=== PATIENT | male | born 1940 | race Caucasian/White ===

== ENCOUNTER → 2017-07-13 | Outpatient (CLI) | payer MEDICARE, OTHER ==
[~2017-07-13] VITALS: Ht 180.3 cm; Wt 74.4 kg
[2017-07-13 13:35] LABS: Urine Bilirubin Negative (Negative); Urine Blood Negative /uL (Negative); Urine Color Yellow (Yellow); Urine Glucose Normal (Normal); Urine Ketone Negative (Negative); Urine Nitrite Negative (Negative); Urine Urobilinogen Normal (Negative); Urine pH 7.5 (5.0-8.0)
[2017-07-13 13:49] LABS: BUN/Creatinine Ratio 22.1; Bilirubin, Total 0.6 mg/dL (0.2-1.0); Calcium 8.3 mg/dL (8.5-10.1); Potassium 3.6 mmol/L (3.5-5.1); Total Protein 5.7 g/dL (6.4-8.2)
[2017-07-13 18:38] LABS: Basophils # (auto) 0.1 uL; Basophils % (auto) 1.5 % (0.0-2.0); Eosinophils # (auto) 0.2 uL; Hematocrit 42.1 % (41.0-53.0); Hemoglobin 14.2 g/dL (13.5-17.5); Lymphocytes # (auto) 0.8 uL; Lymphocytes % (auto) 13.2 % (10.0-50.0); Mean Corpuscular Hemoglobin 31.1 pg (28.0-32.0); Mean Corpuscular Hgb Conc. 33.7 g/dL (32.0-36.0); Mean Corpuscular Volume 92.4 fL (80.0-100.0); Mean Platelet Volume 10.4 fL (6.9-10.8); Monocytes # (auto) 0.4 uL; Monocytes % (auto) 5.8 % (0.0-12.0); Neutrophils # (auto) 4.9 uL; Neutrophils % (auto) 76.5 % (37.0-80.0); Nucleated Red Blood Cells % 0.5 %; Platelet Count (auto) 210 10^3/uL (140-450); White Blood Cell 6.4 10^3/uL (4.4-10.8)
== END | disposition home or self-care (01) ==
LOC: Rad HDHVI 07:54
PROVIDERS: ATTEND Internal Medicine Cardiovascular Disease
DX: I10 Essential (primary) hypertension (principal); E11.9 Type 2 diabetes mellitus without complications; D64.9 Anemia, unspecified; E78.00 Pure hypercholesterolemia, unspecified; E03.9 Hypothyroidism, unspecified; E55.9 Vitamin D deficiency, unspecified; R53.81 Other malaise; R97.20 Elevated prostate specific antigen [PSA]; N39.0 Urinary tract infection, site not specified
CPT/HCPCS: 36415; 78452; 80053; 80061; 81003; 82306; 82607; 83036; 84403; 84439; 84443; 85025; 93017; 96374; A9500

== ENCOUNTER → 2017-07-14 | Outpatient (CLI) | payer MEDICARE, OTHER | END | disposition home or self-care (01) | LOC: Rad HDHVI 07:39 | PROVIDERS: ATTEND Internal Medicine Cardiovascular Disease | DX: I08.1 Rheumatic disorders of both mitral and tricuspid valves (principal) | CPT/HCPCS: 93306; 93880 ==

== ENCOUNTER → 2017-08-06 | Outpatient (CLI) | payer MEDICARE, OTHER ==
[~2017-08-06] VITALS: Ht 180.3 cm; Wt 75.7 kg
[~2017-08-06] MED LIST: ASPI325T47 OR; CHOL1CAP PO; FURO20TA3 PO; LEVO50TA7 PO; POTA10TA51 PO; ROSU1TAB5 PO; TADA5TAB11 PO; VALS160T43 PO
[2017-08-06 11:00] VITALS: BP 160/78
[2017-08-06 11:30] VITALS: BP 148/73
[2017-08-06 16:00] LABS: Basophils # (auto) 0 uL; Basophils % (auto) 0.8 % (0.0-2.0); Eosinophils # (auto) 0.1 uL; Eosinophils % (auto) 1.8 % (0.0-7.0); Hematocrit 42.8 % (41.0-53.0); Hemoglobin 14.3 g/dL (13.5-17.5); Lymphocytes # (auto) 0.9 uL; Lymphocytes % (auto) 15.3 % (10.0-50.0); Mean Corpuscular Hemoglobin 30.8 pg (28.0-32.0); Mean Corpuscular Hgb Conc. 33.5 g/dL (32.0-36.0); Mean Corpuscular Volume 91.9 fL (80.0-100.0); Mean Platelet Volume 9.8 fL (6.9-10.8); Monocytes # (auto) 0.3 uL; Monocytes % (auto) 4.7 % (0.0-12.0); Neutrophils # (auto) 4.5 uL; Neutrophils % (auto) 77.4 % (37.0-80.0); Platelet Count (auto) 195 10^3/uL (140-450); Red Cell Distribution Width 13.5 % (11.8-14.3); White Blood Cell 5.9 10^3/uL (4.4-10.8)
[2017-08-06 16:08] LABS: Calcium 8.2 mg/dL (8.5-10.1); Potassium 3.7 mmol/L (3.5-5.1)
[2017-08-06 16:13] LABS: INR 0.9 (0.9-1.15); Partial Thromboplastin Time 24.5 sec (22.64-33.71); Prothrombin Time 9.8 sec (9.37-12.3)
== END | disposition home or self-care (01) ==
LOC: Rad HDHVI 10:46
PROVIDERS: ATTEND Internal Medicine Cardiovascular Disease
DX: Z01.818 Encounter for other preprocedural examination (principal); R91.8 Other nonspecific abnormal finding of lung field; I70.0 Atherosclerosis of aorta; I10 Essential (primary) hypertension; D64.9 Anemia, unspecified; R79.1 Abnormal coagulation profile; R53.81 Other malaise; R07.89 Other chest pain
CPT/HCPCS: 36415; 71020; 80048; 85025; 85610; 85730; G0463

== ENCOUNTER → 2018-01-26 | Outpatient (CLI) | payer MEDICARE, OTHER ==
[2018-01-26 12:06] LABS: Basophils # (auto) 0.1 uL; Basophils % (auto) 1.1 % (0.0-2.0); Eosinophils # (auto) 0.2 uL; Eosinophils % (auto) 3.9 % (0.0-7.0); Hematocrit 41.5 % (41.0-53.0); Lymphocytes # (auto) 0.7 uL; Lymphocytes % (auto) 13.6 % (10.0-50.0); Mean Corpuscular Hemoglobin 30.5 pg (28.0-32.0); Mean Corpuscular Hgb Conc. 33.8 g/dL (32.0-36.0); Mean Corpuscular Volume 90.3 fL (80.0-100.0); Monocytes # (auto) 0.4 uL; Monocytes % (auto) 6.6 % (0.0-12.0); Neutrophils # (auto) 4.1 uL; Neutrophils % (auto) 74.8 % (37.0-80.0); Platelet Count (auto) 229 10^3/uL (140-450); Red Blood Cells 4.59 10^6/uL (4.5-5.90); Red Cell Distribution Width 14.3 % (11.8-14.3); White Blood Cell 5.4 10^3/uL (4.4-10.8)
[2018-01-26 12:11] LABS: Albumin 1.6 g/dL (3.4-5.0); BUN/Creatinine Ratio 20.2; Bilirubin, Total 0.3 mg/dL (0.2-1.0); Calcium 8.1 mg/dL (8.5-10.1); Potassium 3.7 mmol/L (3.5-5.1); Total Protein 5.2 g/dL (6.4-8.2)
== END | disposition home or self-care (01) ==
LOC: LAB 08:08
PROVIDERS: ATTEND Internal Medicine
DX: E78.5 Hyperlipidemia, unspecified (principal); E11.9 Type 2 diabetes mellitus without complications; E03.9 Hypothyroidism, unspecified; I10 Essential (primary) hypertension
CPT/HCPCS: 36415; 80053; 80061; 84439; 84443; 85025

== ENCOUNTER → 2018-02-16 | Outpatient (CLI) | payer MEDICARE, OTHER ==
[~2018-02-16] MED LIST changes: +FUROSEMIDE 100 MG/10ML VIAL IV ONE; +FUROSEMIDE 40 MG/4 ML VIAL ONE; +POTASSIUM CHL 20 Meq TABLET PO ONE
[2018-02-16 12:00] VITALS: BP 157/94
[2018-02-16 12:30] VITALS: BP 156/81
== END | disposition home or self-care (01) ==
LOC: CHF HDHVI 12:07
PROVIDERS: ATTEND Internal Medicine Cardiovascular Disease
DX: I25.10 Atherosclerotic heart disease of native coronary artery without angina pectoris (principal); I10 Essential (primary) hypertension; E11.9 Type 2 diabetes mellitus without complications; E03.9 Hypothyroidism, unspecified; E78.5 Hyperlipidemia, unspecified; E78.00 Pure hypercholesterolemia, unspecified
CPT/HCPCS: 96374; G0463; J1940

== ENCOUNTER → 2018-03-02 | Outpatient (CLI) | payer MEDICARE, OTHER ==
[~2018-03-02] MED LIST changes: -FUROSEMIDE 100 MG/10ML VIAL IV ONE; -FUROSEMIDE 40 MG/4 ML VIAL ONE; -POTASSIUM CHL 20 Meq TABLET PO ONE
== END | disposition home or self-care (01) ==
LOC: Rad HDHVI 12:51
PROVIDERS: ATTEND Internal Medicine Cardiovascular Disease
DX: I08.1 Rheumatic disorders of both mitral and tricuspid valves (principal); I25.10 Atherosclerotic heart disease of native coronary artery without angina pectoris; E78.5 Hyperlipidemia, unspecified; E03.9 Hypothyroidism, unspecified; E78.00 Pure hypercholesterolemia, unspecified; E11.9 Type 2 diabetes mellitus without complications; I50.43 Acute on chronic combined systolic (congestive) and diastolic (congestive) heart failure; I10 Essential (primary) hypertension
CPT/HCPCS: 93306

== ENCOUNTER → 2018-03-09 | Outpatient (CLI) | payer MEDICARE, OTHER ==
[~2018-03-09] VITALS: Ht 180.3 cm; Wt 82.1 kg
== END | disposition home or self-care (01) ==
LOC: Rad HDHVI 10:17
PROVIDERS: ATTEND Internal Medicine Cardiovascular Disease
DX: I11.0 Hypertensive heart disease with heart failure (principal); I50.43 Acute on chronic combined systolic (congestive) and diastolic (congestive) heart failure; R06.02 Shortness of breath; R60.9 Edema, unspecified; I25.10 Atherosclerotic heart disease of native coronary artery without angina pectoris; E78.5 Hyperlipidemia, unspecified; E03.9 Hypothyroidism, unspecified; E78.00 Pure hypercholesterolemia, unspecified; E11.9 Type 2 diabetes mellitus without complications
CPT/HCPCS: 78452; 93017; 96374; A9500

== ENCOUNTER → 2018-07-25 | Outpatient (CLI) | payer MEDICARE, BC ==
[~2018-07-25] MED LIST changes: +ASPI-123 OR; -ASPI325T47 OR; -ROSU1TAB5 PO; +ROSU1TAB9 PO
== END | disposition home or self-care (01) ==
LOC: Rad HDHVI 10:43
PROVIDERS: ATTEND Internal Medicine Cardiovascular Disease
DX: I08.1 Rheumatic disorders of both mitral and tricuspid valves (principal); I25.10 Atherosclerotic heart disease of native coronary artery without angina pectoris; I11.0 Hypertensive heart disease with heart failure; I50.23 Acute on chronic systolic (congestive) heart failure
CPT/HCPCS: 93306

== ENCOUNTER → 2018-10-31 | Outpatient (CLI) | payer MEDICARE, BC ==
[2018-10-31 12:02] LABS: Basophils # (auto) 0 uL; Basophils % (auto) 0.8 % (0.0-2.0); Eosinophils # (auto) 0.1 uL; Eosinophils % (auto) 2.7 % (0.0-7.0); Hematocrit 42.7 % (41.0-53.0); Hemoglobin 14.3 g/dL (13.5-17.5); Lymphocytes # (auto) 0.6 uL; Mean Corpuscular Hemoglobin 30.4 pg (28.0-32.0); Mean Corpuscular Hgb Conc. 33.6 g/dL (32.0-36.0); Mean Corpuscular Volume 90.3 fL (80.0-100.0); Monocytes # (auto) 0.3 uL; Monocytes % (auto) 5.5 % (0.0-12.0); Neutrophils # (auto) 3.5 uL; Nucleated Red Blood Cells % 0.3 %; Platelet Count (auto) 226 10^3/uL (140-450); Red Blood Cells 4.72 10^6/uL (4.5-5.90); Red Cell Distribution Width 13.7 % (11.8-14.3); White Blood Cell 4.6 10^3/uL (4.4-10.8)
[2018-10-31 12:14] LABS: Urine Blood 1+ /uL (Negative); Urine Specific Gravity 1.017 (1.001-1.035)
[2018-10-31 12:18] LABS: Potassium 3.8 mmol/L (3.5-5.1)
[2018-10-31 12:23] LABS: Free T4 (Free Thyroxine) 1.08 ng/dL (0.89-1.76); Prostate Specific Antigen 2.54 ng/mL (0.0-4.0)
[2018-10-31 12:36] LABS: Albumin 2.2 g/dL (3.4-5.0); BUN/Creatinine Ratio 20.4; Bilirubin, Total 0.5 mg/dL (0.2-1.0); Total Protein 6.1 g/dL (6.4-8.2)
== END | disposition home or self-care (01) ==
LOC: LAB 07:57
PROVIDERS: ATTEND Internal Medicine Cardiovascular Disease
DX: E55.9 Vitamin D deficiency, unspecified (principal); E03.9 Hypothyroidism, unspecified; E11.9 Type 2 diabetes mellitus without complications; E29.1 Testicular hypofunction; D51.9 Vitamin B12 deficiency anemia, unspecified; N39.0 Urinary tract infection, site not specified; C61 Malignant neoplasm of prostate
CPT/HCPCS: 36415; 80053; 80061; 81003; 82306; 82607; 83036; 84153; 84403; 84439; 84443; 85025; 87086

== ENCOUNTER → 2019-04-05 | Outpatient (CLI) | payer MEDICARE, BC ==
[~2019-04-05] VITALS: Ht 180.3 cm; Wt 72.6 kg
[2019-04-05 12:08] LABS: Urine Blood 1+ /uL (Negative); Urine Specific Gravity 1.024 (1.001-1.035)
[2019-04-05 12:11] LABS: Basophils # (auto) 0 uL; Basophils % (auto) 0.5 % (0.0-2.0); Eosinophils # (auto) 0.1 uL; Eosinophils % (auto) 2.5 % (0.0-7.0); Hematocrit 40.1 % (41.0-53.0); Hemoglobin 13.3 g/dL (13.5-17.5); Lymphocytes # (auto) 0.6 uL; Lymphocytes % (auto) 11.1 % (10.0-50.0); Mean Corpuscular Hemoglobin 29.7 pg (28.0-32.0); Mean Corpuscular Hgb Conc. 33.2 g/dL (32.0-36.0); Mean Corpuscular Volume 89.6 fL (80.0-100.0); Monocytes # (auto) 0.4 uL; Monocytes % (auto) 6.5 % (0.0-12.0); Neutrophils # (auto) 4.6 uL; Neutrophils % (auto) 79.4 % (37.0-80.0); Platelet Count (auto) 221 10^3/uL (140-450); Red Blood Cells 4.47 10^6/uL (4.5-5.90); Red Cell Distribution Width 13.6 % (11.8-14.3); White Blood Cell 5.8 10^3/uL (4.4-10.8)
[2019-04-05 12:16] LABS: Calcium 8.6 mg/dL (8.5-10.1)
[2019-04-05 12:23] LABS: Albumin 1.9 g/dL (3.4-5.0); BUN/Creatinine Ratio 21.8; Bilirubin, Total 0.4 mg/dL (0.2-1.0); Total Protein 5.9 g/dL (6.4-8.2)
[2019-04-05 13:48] LABS: Free T4 (Free Thyroxine) 0.91 ng/dL (0.89-1.76)
[2019-04-05 13:49] LABS: Prostate Specific Antigen 3.04 ng/mL (0.0-4.0)
== END | disposition home or self-care (01) ==
LOC: Rad HDHVI 08:02
PROVIDERS: ATTEND Internal Medicine Cardiovascular Disease
DX: C61 Malignant neoplasm of prostate (principal); E03.9 Hypothyroidism, unspecified; K90.9 Intestinal malabsorption, unspecified; D51.9 Vitamin B12 deficiency anemia, unspecified; E11.9 Type 2 diabetes mellitus without complications; I11.0 Hypertensive heart disease with heart failure; I50.33 Acute on chronic diastolic (congestive) heart failure; E78.00 Pure hypercholesterolemia, unspecified; E78.5 Hyperlipidemia, unspecified; Z88.8 Allergy status to other drugs, medicaments and biological substances; Z79.899 Other long term (current) drug therapy
CPT/HCPCS: 36415; 78452; 80053; 80061; 81003; 82306; 82607; 83036; 84153; 84403; 84439; 84443; 85025; 93017; 96374; A9500

== ENCOUNTER 2019-07-04 06:37 | Emergency (ER) | payer MEDICARE, BC ==
[~2019-07-04] VITALS: Ht 180.3 cm; Wt 72.6 kg
[~2019-07-04 06:37] MED LIST changes: +ROSU1TAB13 PO; -ROSU1TAB9 PO
[2019-07-04] MEDS ORDERED: KETOROLAC TROMETH 60MG/2ML VIAL IM ONE (08:30)
[2019-07-04 08:45] VITALS: BP 142/75
[2019-07-04] MEDS ORDERED: ACETAMINOPHEN 325 MG TAB PO ONE (08:45)
== END 2019-07-04 08:58 | disposition home or self-care (01) ==
LOC: ER 06:39
DX: M25.532 Pain in left wrist (principal); E78.00 Pure hypercholesterolemia, unspecified; I10 Essential (primary) hypertension; Z79.82 Long term (current) use of aspirin; Z79.899 Other long term (current) drug therapy
CPT/HCPCS: 29125; 73110

== ENCOUNTER → 2019-09-15 | Outpatient (CLI) | payer MEDICARE, BC ==
[~2019-09-15] MED LIST changes: +IOHEXOL 350 MG/ML 100ML IJ ONE; +POTASSIUM CHL 20 Meq TABLET PO ONE; +SODIUM CHLORIDE 0.9% 1,000 ML IV ONE
[2019-09-15 09:30] VITALS: BP 146/80
--- NOTE | 2019-09-15 09:30 | NUR ---
IV insertion IV access obtained, via clean sterile technique by inserting 20 gauge catheter at LAC after 2 attempt(s). IV secured properly. No trauma to site. Patient tolerated procedure well.
[2019-09-15 10:26] LABS: BUN/Creatinine Ratio 21.3; Calcium 8.9 mg/dL (8.5-10.1)
[2019-09-15 10:30] LABS: Potassium 2.9 mmol/L (3.5-5.1)
[2019-09-15 12:00] VITALS: BP 139/78
--- NOTE | 2019-09-15 12:00 | NUR ---
[facility] Discharge Instructions See e-MAR for any mediations given with this visit. Patient education given on disease process. Patient verbalized understanding. Previous labs reviewed. Patient discharged in stable condition with after care instructions and follow up appointment. NOTE POTASSIUM PO ADMIN BY HAL PHILLIPS NS [id number], [phone] ADMIN BY HAL PHILLIPS
[2019-09-15 12:29] LABS: Basophils # (auto) 0 uL; Basophils % (auto) 0.6 % (0.0-2.0); Eosinophils # (auto) 0.1 uL; Eosinophils % (auto) 1.4 % (0.0-7.0); Hematocrit 37.4 % (41.0-53.0); Hemoglobin 12.8 g/dL (13.5-17.5); Lymphocytes # (auto) 0.8 uL; Lymphocytes % (auto) 10.4 % (10.0-50.0); Mean Corpuscular Hemoglobin 29.5 pg (28.0-32.0); Mean Corpuscular Hgb Conc. 34.1 g/dL (32.0-36.0); Mean Corpuscular Volume 86.5 fL (80.0-100.0); Monocytes # (auto) 0.4 uL; Monocytes % (auto) 5.2 % (0.0-12.0); Neutrophils % (auto) 82.4 % (37.0-80.0); Nucleated Red Blood Cells % 0.1 %; Platelet Count (auto) 279 10^3/uL (140-450); Red Blood Cells 4.33 10^6/uL (4.5-5.90); Red Cell Distribution Width 13.8 % (11.8-14.3); White Blood Cell 7.3 10^3/uL (4.4-10.8)
[2019-09-15 12:44] LABS: Albumin 2.3 g/dL (3.4-5.0); Bilirubin, Direct 0.1 mg/dL (0-0.2); Bilirubin, Total 0.5 mg/dL (0.2-1.0); Total Protein 6.4 g/dL (6.4-8.2)
[2019-09-15 15:52] LABS: Urine Blood Negative /uL (Negative)
[2019-09-19 16:47] LABS: Free T4 (Free Thyroxine) 1.27 ng/dL (0.89-1.76); Prostate Specific Antigen 3.55 ng/mL (0.0-4.0)
== END | disposition home or self-care (01) ==
LOC: Rad HDHVI 09:11
PROVIDERS: ATTEND Internal Medicine Cardiovascular Disease
DX: R19.7 Diarrhea, unspecified (principal); R63.4 Abnormal weight loss; K90.9 Intestinal malabsorption, unspecified; C61 Malignant neoplasm of prostate; D51.9 Vitamin B12 deficiency anemia, unspecified; N39.0 Urinary tract infection, site not specified; R94.4 Abnormal results of kidney function studies; E11.9 Type 2 diabetes mellitus without complications; E78.5 Hyperlipidemia, unspecified; E87.6 Hypokalemia; I70.8 Atherosclerosis of other arteries; K44.0 Diaphragmatic hernia with obstruction, without gangrene; Z79.899 Other long term (current) drug therapy
CPT/HCPCS: 36415; 71260; 74177; 80048; 80061; 80076; 81003; 82306; 82607; 83036; 84153; 84403; 84439; 84443; 85025; 96360; G0463; J7030; Q9967

== ENCOUNTER → 2019-09-29 | Outpatient (CLI) | payer MEDICARE, BC ==
[~2019-09-29] MED LIST changes: -IOHEXOL 350 MG/ML 100ML IJ ONE; -POTASSIUM CHL 20 Meq TABLET PO ONE; -SODIUM CHLORIDE 0.9% 1,000 ML IV ONE
[2019-09-29 12:22] LABS: Albumin 2.3 g/dL (3.4-5.0); Calcium 9.1 mg/dL (8.5-10.1); Magnesium 2.2 mg/dL (1.6-2.6); Potassium 3.3 mmol/L (3.5-5.1)
[2019-09-29 12:25] LABS: Bilirubin, Total 0.5 mg/dL (0.2-1.0); Total Protein 6.6 g/dL (6.4-8.2)
== END | disposition home or self-care (01) ==
LOC: LAB 10:59
PROVIDERS: ATTEND Internal Medicine Cardiovascular Disease
DX: R00.2 Palpitations (principal); E78.5 Hyperlipidemia, unspecified; I10 Essential (primary) hypertension
CPT/HCPCS: 36415; 80053; 83735

== ENCOUNTER → 2020-01-10 | Outpatient (CLI) | payer MEDICARE, BC ==
[~2020-01-10] MED LIST changes: +READI-CAT 2 (BARIUM SULF)(VANILLA SMOOTHIE) 450ML ONE
== END | disposition home or self-care (01) ==
LOC: Rad HDHVI 10:40
PROVIDERS: ATTEND Internal Medicine Cardiovascular Disease
DX: N40.1 Benign prostatic hyperplasia with lower urinary tract symptoms (principal); K42.9 Umbilical hernia without obstruction or gangrene; K40.90 Unilateral inguinal hernia, without obstruction or gangrene, not specified as recurrent
CPT/HCPCS: 74176

== ENCOUNTER → 2020-03-11 | Outpatient (CLI) | payer MEDICARE, BC ==
[~2020-03-11] MED LIST changes: -READI-CAT 2 (BARIUM SULF)(VANILLA SMOOTHIE) 450ML ONE
[2020-03-11 16:00] LABS: Urine Blood 1+ /uL (Negative); Urine Specific Gravity 1.008 (1.001-1.035)
== END | disposition home or self-care (01) ==
LOC: CHF HDHVI 12:06
PROVIDERS: ATTEND Internal Medicine Cardiovascular Disease
DX: N39.0 Urinary tract infection, site not specified (principal)
CPT/HCPCS: 81003

== ENCOUNTER → 2020-04-15 | Outpatient (CLI) | payer MEDICARE, BC | END | disposition home or self-care (01) | LOC: Rad HDHVI 12:57 | PROVIDERS: ATTEND Internal Medicine Cardiovascular Disease | DX: K44.9 Diaphragmatic hernia without obstruction or gangrene (principal); N32.3 Diverticulum of bladder; K40.30 Unilateral inguinal hernia, with obstruction, without gangrene, not specified as recurrent; N40.0 Benign prostatic hyperplasia without lower urinary tract symptoms; I70.8 Atherosclerosis of other arteries; R59.9 Enlarged lymph nodes, unspecified; R10.9 Unspecified abdominal pain | CPT/HCPCS: 74176 ==

== ENCOUNTER → 2020-05-20 | Outpatient (CLI) | payer MEDICARE, BC | END | disposition home or self-care (01) | LOC: Rad HDHVI 09:56 | PROVIDERS: ATTEND Internal Medicine Cardiovascular Disease | DX: I50.43 Acute on chronic combined systolic (congestive) and diastolic (congestive) heart failure (principal); R06.02 Shortness of breath | CPT/HCPCS: 93306 ==

== ENCOUNTER → 2020-06-24 | Outpatient (CLI) | payer MEDICARE, BC | END | disposition home or self-care (01) | LOC: Rad HDHVI 13:53 | PROVIDERS: ATTEND Internal Medicine Cardiovascular Disease | DX: I25.10 Atherosclerotic heart disease of native coronary artery without angina pectoris (principal); I10 Essential (primary) hypertension; I25.2 Old myocardial infarction; E78.00 Pure hypercholesterolemia, unspecified; E03.9 Hypothyroidism, unspecified; Z82.49 Family history of ischemic heart disease and other diseases of the circulatory system | CPT/HCPCS: 78452; 93017; 96374; A9500 ==

== ENCOUNTER → 2020-11-08 | Outpatient (CLI) | payer MEDICARE, BC | END | disposition home or self-care (01) | LOC: Rad HDHVI 10:00 | PROVIDERS: ATTEND Internal Medicine Cardiovascular Disease | DX: J98.11 Atelectasis (principal); J84.10 Pulmonary fibrosis, unspecified; I70.0 Atherosclerosis of aorta; M47.814 Spondylosis without myelopathy or radiculopathy, thoracic region; J18.9 Pneumonia, unspecified organism; Z86.16 Personal history of COVID-19 | CPT/HCPCS: 71046 ==

== ENCOUNTER → 2020-11-11 | Outpatient (CLI) | payer MEDICARE, BC | END | disposition home or self-care (01) | LOC: Rad HDHVI 10:58 | PROVIDERS: ATTEND Internal Medicine Cardiovascular Disease | DX: I10 Essential (primary) hypertension (principal); G45.9 Transient cerebral ischemic attack, unspecified | CPT/HCPCS: 93880 ==

== ENCOUNTER → 2020-11-14 | Outpatient (CLI) | payer MEDICARE, BC | END | disposition home or self-care (01) | LOC: Rad HDHVI 15:55 | PROVIDERS: ATTEND Internal Medicine Cardiovascular Disease | DX: I25.10 Atherosclerotic heart disease of native coronary artery without angina pectoris (principal); R06.02 Shortness of breath | CPT/HCPCS: 93306 ==

== ENCOUNTER → 2022-04-13 | Outpatient (CLI) | payer MEDICARE, BC ==
[~2022-04-13] VITALS: Ht 180.3 cm; Wt 69.4 kg
[~2022-04-13] MED LIST changes: +AMIODARONE HCL 150 MG in D5W 5% 100 ML IV ONE; +AMIODARONE HCL 200 MG TAB ONE; +AMIODARONE HCL 200 MG TAB PO ONE
[2022-04-13 10:55] VITALS: BP 132/78
[2022-04-13 12:17] VITALS: BP 126/79
== END | disposition home or self-care (01) ==
LOC: CHF HDHVI 11:01
PROVIDERS: ATTEND Internal Medicine Cardiovascular Disease
DX: I48.91 Unspecified atrial fibrillation (principal)
CPT/HCPCS: 96374; G0463

== ENCOUNTER → 2022-05-12 | Outpatient (CLI) | payer MEDICARE ==
[~2022-05-12] MED LIST changes: +AMIO400T7 PO; -AMIODARONE HCL 150 MG in D5W 5% 100 ML IV ONE; -AMIODARONE HCL 200 MG TAB ONE; -AMIODARONE HCL 200 MG TAB PO ONE; +AMLO-496 PO; +ASCO500T11 PO; +CHLO50TA3 PO; +CLON0.1T PO; +HYDR25TA5 PO; +MULT-688 PO; +RIVA10TA PO; +ROPIVACAINE 0.5% (5MG/ML) 20ML AMPULE IJ ONE; +TORS20TA20 PO; +ZINC220C8 PO; +methylPREDNISolone ACETATE 80 MG/ML VL ONE
[2022-05-12 08:15] VITALS: BP 115/77
[2022-05-12 08:48] VITALS: BP 118/81
[2022-05-12 12:24] LABS: BUN/Creatinine Ratio 15.4; Calcium 8.8 mg/dL (8.5-10.1); Potassium 3.2 mmol/L (3.5-5.1)
[2022-05-12 12:28] LABS: Basophils # (auto) 0 10 ^3/uL (0-0.2); Basophils % (auto) 0.3 % (0.0-2.0); Eosinophils # (auto) 0.1 10 ^3/uL (0-0.8); Eosinophils % (auto) 1.4 % (0.0-7.0); Hematocrit 27.7 % (41.0-53.0); Lymphocytes # (auto) 0.5 10 ^3/uL (0.4-5.4); Lymphocytes % (auto) 7.8 % (10.0-50.0); Mean Corpuscular Hemoglobin 27.9 pg (28.0-32.0); Mean Corpuscular Hgb Conc. 32.3 g/dL (32.0-36.0); Mean Corpuscular Volume 86.1 fL (80.0-100.0); Monocytes # (auto) 0.3 10 ^3/uL (0-1.3); Monocytes % (auto) 4.6 % (0.0-12.0); Neutrophils # (auto) 5.1 10 ^3/uL (1.6-8.6); Neutrophils % (auto) 85.9 % (37.0-80.0); Red Blood Cells 3.22 10^6/uL (4.5-5.90); Red Cell Distribution Width 14.9 % (11.8-14.3); White Blood Cell 5.9 10^3/uL (4.4-10.8)
[2022-05-12 12:36] LABS: INR 1.41 (0.9-1.15); Partial Thromboplastin Time 37.3 sec (24.6-33.4)
== END | disposition home or self-care (01) ==
LOC: Rad HDHVI 08:04
PROVIDERS: ATTEND Internal Medicine Cardiovascular Disease
DX: Z01.812 Encounter for preprocedural laboratory examination (principal); R00.0 Tachycardia, unspecified; R53.83 Other fatigue; R06.02 Shortness of breath; R10.819 Abdominal tenderness, unspecified site
CPT/HCPCS: 36415; 71046; 80048; 85025; 85610; 85730; 93005; G0463; J1040; J2795

== ENCOUNTER → 2022-05-13 | Outpatient (CLI) | payer MEDICARE ==
[~2022-05-13] MED LIST changes: -ASPI-123 OR; -FURO20TA3 PO; +POTASSIUM CHL 20 Meq TABLET PO ONE; -ROPIVACAINE 0.5% (5MG/ML) 20ML AMPULE IJ ONE; +SODIUM CHLORIDE 0.9% 1,000 ML IV ONE; -TADA5TAB11 PO; -VALS160T43 PO; -methylPREDNISolone ACETATE 80 MG/ML VL ONE
[2022-05-13 08:33] VITALS: BP 115/65
[2022-05-13 12:25] VITALS: BP 112/78
[2022-05-13 16:09] LABS: Calcium 8.9 mg/dL (8.5-10.1)
[2022-05-13 16:12] LABS: BUN/Creatinine Ratio 16.8
== END | disposition home or self-care (01) ==
LOC: CHF HDHVI 08:31
PROVIDERS: ATTEND Internal Medicine Cardiovascular Disease
DX: E86.0 Dehydration (principal); I11.0 Hypertensive heart disease with heart failure; I50.41 Acute combined systolic (congestive) and diastolic (congestive) heart failure; E78.5 Hyperlipidemia, unspecified; I48.91 Unspecified atrial fibrillation; Z87.891 Personal history of nicotine dependence; Z98.61 Coronary angioplasty status
CPT/HCPCS: 36415; 80048; 96360; 96361; G0463; J7030

== ENCOUNTER 2022-05-14 06:42 | Day surgery (SDC) | payer BC, MEDICARE ==
[~2022-05-14] VITALS: Ht 180.3 cm; Wt 68.0 kg
[~2022-05-14 06:42] MED LIST changes: -POTASSIUM CHL 20 Meq TABLET PO ONE; -SODIUM CHLORIDE 0.9% 1,000 ML IV ONE
[2022-05-14] MEDS ORDERED: MIDAZOLAM HCL 2MG/2ML 2ml VIAL (1mg/ml) IV ONE (07:30)
== END 2022-05-14 09:50 | disposition home or self-care (01) ==
LOC: CATH 06:42
PROVIDERS: ATTEND Internal Medicine Cardiovascular Disease
DX: I48.91 Unspecified atrial fibrillation (principal); I48.92 Unspecified atrial flutter; I11.0 Hypertensive heart disease with heart failure; I50.41 Acute combined systolic (congestive) and diastolic (congestive) heart failure; E78.5 Hyperlipidemia, unspecified; Z95.5 Presence of coronary angioplasty implant and graft; Z82.49 Family history of ischemic heart disease and other diseases of the circulatory system; Z87.891 Personal history of nicotine dependence; Z20.822 Contact with and (suspected) exposure to COVID-19
CPT/HCPCS: 92961; 93005; J2250; J7040; U0003; 99152

== ENCOUNTER 2022-06-04 17:50 | Inpatient (IN) | payer MEDICARE, OTHER ==
[~2022-06-04] VITALS: Ht 180.3 cm; Wt 76.3 kg
[2022-06-04 20:43] LABS: Basophils # (auto) 0 10 ^3/uL (0-0.2); Basophils % (auto) 0.5 % (0.0-2.0); Eosinophils # (auto) 0.1 10 ^3/uL (0-0.8); Eosinophils % (auto) 1.5 % (0.0-7.0); Hematocrit 30.6 % (41.0-53.0); Hemoglobin 9.9 g/dL (13.5-17.5); Lymphocytes # (auto) 0.6 10 ^3/uL (0.4-5.4); Lymphocytes % (auto) 10.7 % (10.0-50.0); Mean Corpuscular Hemoglobin 27.9 pg (28.0-32.0); Mean Corpuscular Hgb Conc. 32.2 g/dL (32.0-36.0); Mean Corpuscular Volume 86.5 fL (80.0-100.0); Monocytes # (auto) 0.4 10 ^3/uL (0-1.3); Monocytes % (auto) 7.2 % (0.0-12.0); Neutrophils # (auto) 4.4 10 ^3/uL (1.6-8.6); Neutrophils % (auto) 80.1 % (37.0-80.0); Nucleated Red Blood Cells % 0.1 %; Red Blood Cells 3.54 10^6/uL (4.5-5.90); Red Cell Distribution Width 16.5 % (11.8-14.3); White Blood Cell 5.5 10^3/uL (4.4-10.8)
[2022-06-04 21:17] LABS: Albumin 2.8 g/dL (3.4-5.0); BUN/Creatinine Ratio 15.6; Calcium 7.9 mg/dL (8.5-10.1); Potassium 3.9 mmol/L (3.5-5.1)
[2022-06-04 21:20] LABS: Bilirubin, Total 0.5 mg/dL (0.2-1.0); Total Protein 6.3 g/dL (6.4-8.2)
[2022-06-05] MEDS ORDERED: ONDANSETRON HCL 4 MG/2 ML VIAL IV PRN (03:15)
[2022-06-05] MEDS ORDERED: ALBUMIN 25% 100 ML IV ONE (03:15)
[2022-06-05] MEDS ORDERED: FUROSEMIDE 20 MG/2 ML VIAL IV ONE ×2 (03:15→13:15)
[2022-06-05] MEDS ORDERED: ACETAMINOPHEN 325 MG TAB PO PRN (03:15)
[2022-06-05] MEDS ORDERED: MORPHINE SULFATE INJ 2 MG/ml SYRG IV PRN (03:45)
[2022-06-05] MEDS ORDERED: NITROGLYCERIN 0.4 MG SL TAB SL PRN (03:45)
[2022-06-05] MEDS: SODIUM CHLOR 0.9% PF (SALINE LOCK) 10ML VIAL/SYR IV SCH ×3 (06:29→21:36)
[2022-06-05] MEDS: LEVOTHYROXINE SODIUM 50 MCG TAB PO SCH (07:11)
[2022-06-05 07:15] LABS: Urine Amorphous Crystal FEW /hpf (None Seen); Urine Bacteria NONE SEEN /hpf (None Seen); Urine Blood Negative /uL (Negative); Urine Mucus FEW (None Seen); Urine Specific Gravity 1.014 (1.001-1.035); Urine WBC 1 /hpf (0 - 3)
[2022-06-05 07:25] LABS: Alcohol, Urine < 3.0 mg/dL (0-10); Amphetamine Screen, Urine NEGATIVE (NEGATIVE); Barbiturate Scree,Urine NEGATIVE (NEGATIVE); Benzodiazephine Screen, Urine NEGATIVE (NEGATIVE); Cannabinoid Screen, Urine NEGATIVE (NEGATIVE); Cocaine Screen, Urine NEGATIVE (NEGATIVE); Opiate Scree,Urine NEGATIVE (NEGATIVE); Phencyclidine Screen, Urine NEGATIVE (NEGATIVE)
[2022-06-05 08:24] LABS: Basophils # (auto) 0 10 ^3/uL (0-0.2); Basophils % (auto) 0.4 % (0.0-2.0); Eosinophils # (auto) 0.1 10 ^3/uL (0-0.8); Eosinophils % (auto) 1.3 % (0.0-7.0); Hematocrit 27.5 % (41.0-53.0); Hemoglobin 8.9 g/dL (13.5-17.5); Lymphocytes # (auto) 0.4 10 ^3/uL (0.4-5.4); Lymphocytes % (auto) 8.6 % (10.0-50.0); Mean Corpuscular Hemoglobin 27.9 pg (28.0-32.0); Mean Corpuscular Hgb Conc. 32.4 g/dL (32.0-36.0); Mean Corpuscular Volume 86.3 fL (80.0-100.0); Monocytes # (auto) 0.2 10 ^3/uL (0-1.3); Monocytes % (auto) 5.3 % (0.0-12.0); Neutrophils # (auto) 3.6 10 ^3/uL (1.6-8.6); Neutrophils % (auto) 84.4 % (37.0-80.0); Nucleated Red Blood Cells % 0.1 %; Red Blood Cells 3.19 10^6/uL (4.5-5.90); Red Cell Distribution Width 16.8 % (11.8-14.3); White Blood Cell 4.2 10^3/uL (4.4-10.8)
[2022-06-05 08:40] LABS: Potassium 3.7 mmol/L (3.5-5.1)
[2022-06-05 08:48] LABS: Albumin 2.5 g/dL (3.4-5.0); BUN/Creatinine Ratio 14.7; Bilirubin, Total 0.6 mg/dL (0.2-1.0); Calcium 8.1 mg/dL (8.5-10.1)
[2022-06-05] MEDS ORDERED: FUROSEMIDE 20 MG/2 ML VIAL IV SCH ×2 (10:00→12:45)
[2022-06-05] MEDS ORDERED: HEPARIN SODIUM (PORCINE) 5000 UNITS/ML 1ML VIAL SC SCH (10:00)
[2022-06-05] MEDS: CARVEDILOL 3.125 MG TAB PO SCH ×2 (10:56→21:35)
[2022-06-05] MEDS: B-COMPLEX W/ C & FOLIC ACID(NEPHROVITE TAB) PO SCH (10:57)
[2022-06-05] MEDS ORDERED: amLODIPine BESYLATE 5 MG TAB PO ONE (12:45)
[2022-06-05] MEDS ORDERED: FUROSEMIDE 40 MG/4 ML VIAL IV SCH (12:47)
[2022-06-05] MEDS: ALBUMIN 25% 100 ML IV SCH ×2 (16:16→23:50)
[2022-06-05] MEDS ORDERED: TORSEMIDE 20 MG TAB PO SCH (18:00)
[2022-06-05 18:54] LABS: Protein, Urine 478.6 mg/dL (0.0-11.9)
[2022-06-05] MEDS: FUROSEMIDE 40 MG/4 ML VIAL IV SCH (19:02)
[2022-06-05] MEDS: AMIODARONE HCL 200 MG TAB PO SCH (21:35)
[2022-06-05] MEDS: ATORVASTATIN 20 MG TAB PO SCH (21:35)
[2022-06-05 22:00] VITALS: BP 117/75
[2022-06-06] MEDS: HYDROcodone-ACET 5/325MG TAB PO PRN (02:46)
[2022-06-06 05:00] VITALS: BP 103/71
[2022-06-06 05:38] LABS: Basophils # (auto) 0 10 ^3/uL (0-0.2); Eosinophils # (auto) 0.1 10 ^3/uL (0-0.8); Hematocrit 24.5 % (41.0-53.0); Lymphocytes # (auto) 0.3 10 ^3/uL (0.4-5.4); Monocytes # (auto) 0.3 10 ^3/uL (0-1.3); Neutrophils # (auto) 4.8 10 ^3/uL (1.6-8.6); White Blood Cell 5.5 10^3/uL (4.4-10.8)
[2022-06-06 05:40] LABS: Basophils % (auto) 0.2 % (0.0-2.0); Eosinophils % (auto) 1.3 % (0.0-7.0); Hemoglobin 8.2 g/dL (13.5-17.5); Lymphocytes % (auto) 6.1 % (10.0-50.0); Mean Corpuscular Hemoglobin 28.7 pg (28.0-32.0); Mean Corpuscular Hgb Conc. 33.3 g/dL (32.0-36.0); Mean Corpuscular Volume 85.9 fL (80.0-100.0); Monocytes % (auto) 5.3 % (0.0-12.0); Neutrophils % (auto) 87.1 % (37.0-80.0); Red Blood Cells 2.85 10^6/uL (4.5-5.90)
[2022-06-06 05:57] LABS: Potassium 3.5 mmol/L (3.5-5.1)
[2022-06-06 06:04] LABS: Albumin 2.9 g/dL (3.4-5.0); Bilirubin, Total 0.5 mg/dL (0.2-1.0); Calcium 7.8 mg/dL (8.5-10.1); Total Protein 5.8 g/dL (6.4-8.2)
[2022-06-06] MEDS: FUROSEMIDE 40 MG/4 ML VIAL IV SCH (06:13)
[2022-06-06] MEDS: SODIUM CHLOR 0.9% PF (SALINE LOCK) 10ML VIAL/SYR IV SCH ×3 (06:13→20:41)
[2022-06-06] MEDS: LEVOTHYROXINE SODIUM 50 MCG TAB PO SCH (06:20)
[2022-06-06] MEDS: ALBUMIN 25% 100 ML IV SCH (06:21)
[2022-06-06 09:00] VITALS: BP 109/76
[2022-06-06] MEDS: CARVEDILOL 3.125 MG TAB PO SCH ×2 (11:17→21:46)
[2022-06-06] MEDS: AMIODARONE HCL 200 MG TAB PO SCH ×2 (11:17→21:45)
[2022-06-06] MEDS: HCTZ 25 MG TAB PO SCH (11:18)
[2022-06-06] MEDS: amLODIPine BESYLATE 5 MG TAB PO SCH (11:19)
[2022-06-06] MEDS: B-COMPLEX W/ C & FOLIC ACID(NEPHROVITE TAB) PO SCH (11:19)
[2022-06-06] MEDS: XARELTO 10 MG PO SCH (11:20)
[2022-06-06 13:00] VITALS: BP 110/75
[2022-06-06 17:00] VITALS: BP 111/78
[2022-06-06] MEDS ORDERED: BUMETANIDE 2.5mg/10ml (0.25 mg/ml) INJ IV ONE ×2 (18:30→19:45)
[2022-06-06] MEDS: ATORVASTATIN 20 MG TAB PO SCH (21:46)
[2022-06-06 22:00] VITALS: BP 114/80
[2022-06-07 05:00] VITALS: BP 110/79
[2022-06-07] MEDS: SODIUM CHLOR 0.9% PF (SALINE LOCK) 10ML VIAL/SYR IV SCH ×3 (05:38→22:44)
[2022-06-07] MEDS: BUMETANIDE 2.5mg/10ml (0.25 mg/ml) INJ IV SCH ×2 (05:53→17:25)
[2022-06-07] MEDS: LEVOTHYROXINE SODIUM 50 MCG TAB PO SCH (06:03)
[2022-06-07 09:00] VITALS: BP 104/68
[2022-06-07] MEDS: AMIODARONE HCL 200 MG TAB PO SCH ×2 (10:03→22:44)
[2022-06-07] MEDS: CARVEDILOL 3.125 MG TAB PO SCH ×2 (10:04→22:45)
[2022-06-07] MEDS: HCTZ 25 MG TAB PO SCH (10:05)
[2022-06-07] MEDS: B-COMPLEX W/ C & FOLIC ACID(NEPHROVITE TAB) PO SCH (10:05)
[2022-06-07] MEDS: XARELTO 10 MG PO SCH (10:06)
[2022-06-07] MEDS: amLODIPine BESYLATE 5 MG TAB PO SCH (10:06)
[2022-06-07 10:08] LABS: Albumin 2.9 g/dL (3.4-5.0); Bilirubin, Total 0.7 mg/dL (0.2-1.0); Calcium 8.2 mg/dL (8.5-10.1); Potassium 3.5 mmol/L (3.5-5.1)
[2022-06-07 11:07] LABS: % Iron Saturation 15.3 % (20-55)
[2022-06-07 12:53] VITALS: BP 102/71
[2022-06-07] MEDS ORDERED: SODIUM FERR GLUC 62.5MG/5ML 125 MG in SODIUM CHL 0.9% 100 ML IV ONE (15:00)
[2022-06-07 17:19] VITALS: BP 104/70
[2022-06-07 20:00] VITALS: BP 105/73
[2022-06-07 21:37] VITALS: BP 105/73
[2022-06-07] MEDS: ATORVASTATIN 20 MG TAB PO SCH (22:45)
[2022-06-08 04:35] VITALS: BP 111/75
[2022-06-08] MEDS: BUMETANIDE 2.5mg/10ml (0.25 mg/ml) INJ IV SCH (06:21)
[2022-06-08] MEDS: SODIUM CHLOR 0.9% PF (SALINE LOCK) 10ML VIAL/SYR IV SCH ×3 (06:22→21:51)
[2022-06-08] MEDS: LEVOTHYROXINE SODIUM 50 MCG TAB PO SCH (06:22)
[2022-06-08 09:00] VITALS: BP 115/79
[2022-06-08 09:42] LABS: INR 1.31 (0.9-1.15); Partial Thromboplastin Time 34.8 sec (24.6-33.4)
[2022-06-08 09:45] LABS: BUN/Creatinine Ratio 15.4; Calcium 8.2 mg/dL (8.5-10.1); Potassium 3.5 mmol/L (3.5-5.1)
[2022-06-08] MEDS: SODIUM FERR GLUC 62.5MG/5ML 125 MG in SODIUM CHL 0.9% 100 ML IV SCH ×2 (12:00→16:20)
[2022-06-08 12:25] VITALS: BP 108/79
[2022-06-08] MEDS: AMIODARONE HCL 200 MG TAB PO SCH ×2 (13:02→22:00)
[2022-06-08] MEDS: CARVEDILOL 3.125 MG TAB PO SCH ×2 (13:03→22:01)
[2022-06-08] MEDS: HCTZ 25 MG TAB PO SCH (13:04)
[2022-06-08] MEDS: B-COMPLEX W/ C & FOLIC ACID(NEPHROVITE TAB) PO SCH (13:04)
[2022-06-08] MEDS: amLODIPine BESYLATE 5 MG TAB PO SCH (13:05)
[2022-06-08] MEDS: BUMETANIDE INJECTION 12.5 MG in GIVE UN-DILUTED 0 ML IV SCH (16:19)
[2022-06-08 16:30] VITALS: BP 99/69
[2022-06-08 22:00] VITALS: BP 104/71
[2022-06-08] MEDS: ATORVASTATIN 20 MG TAB PO SCH (22:01)
[2022-06-09] VITALS (8 sets, daily range): BP systolic 98–117; BP diastolic 68–77
[2022-06-09 04:59] LABS: Basophils # (auto) 0 10 ^3/uL (0-0.2); Basophils % (auto) 0.3 % (0.0-2.0); Eosinophils # (auto) 0.1 10 ^3/uL (0-0.8); Eosinophils % (auto) 0.9 % (0.0-7.0); Lymphocytes # (auto) 0.4 10 ^3/uL (0.4-5.4); Monocytes # (auto) 0.3 10 ^3/uL (0-1.3)
[2022-06-09 05:02] LABS: Hematocrit 24.6 % (41.0-53.0); Hemoglobin 8.2 g/dL (13.5-17.5); Lymphocytes % (auto) 6.1 % (10.0-50.0); Mean Corpuscular Hemoglobin 28.8 pg (28.0-32.0); Mean Corpuscular Hgb Conc. 33.4 g/dL (32.0-36.0); Mean Corpuscular Volume 86.3 fL (80.0-100.0); Monocytes % (auto) 5.7 % (0.0-12.0); Neutrophils # (auto) 5.1 10 ^3/uL (1.6-8.6); Nucleated Red Blood Cells % 0.1 %; Red Blood Cells 2.85 10^6/uL (4.5-5.90); Red Cell Distribution Width 16.8 % (11.8-14.3); White Blood Cell 5.9 10^3/uL (4.4-10.8)
[2022-06-09] MEDS: SODIUM CHLOR 0.9% PF (SALINE LOCK) 10ML VIAL/SYR IV SCH ×3 (05:02→22:18)
[2022-06-09] MEDS: LEVOTHYROXINE SODIUM 50 MCG TAB PO SCH (05:05)
[2022-06-09 05:15] LABS: Potassium 3.5 mmol/L (3.5-5.1)
[2022-06-09 05:27] LABS: Albumin 2.6 g/dL (3.4-5.0); BUN/Creatinine Ratio 17.4; Bilirubin, Total 0.6 mg/dL (0.2-1.0); Calcium 8.2 mg/dL (8.5-10.1); Total Protein 5.2 g/dL (6.4-8.2)
[2022-06-09] MEDS: BUMETANIDE INJECTION 12.5 MG in GIVE UN-DILUTED 0 ML IV SCH (07:05)
[2022-06-09 08:06] LABS: Immunoglobulin G, Serum 684 mg/dL (603-1613)
[2022-06-09] MEDS: AMIODARONE HCL 200 MG TAB PO SCH ×2 (09:37→22:25)
[2022-06-09] MEDS: CARVEDILOL 3.125 MG TAB PO SCH (09:37)
[2022-06-09] MEDS: amLODIPine BESYLATE 5 MG TAB PO SCH (09:38)
[2022-06-09] MEDS: B-COMPLEX W/ C & FOLIC ACID(NEPHROVITE TAB) PO SCH (09:38)
[2022-06-09] MEDS: HCTZ 25 MG TAB PO SCH (09:38)
[2022-06-09 11:03] LABS: Hepatitis B Surface Antibody Negative (Negative)
[2022-06-09] MEDS ORDERED: SODIUM FERR GLUC 62.5MG/5ML 125 MG in SODIUM CHL 0.9% 100 ML IV SCH ×4 (12:00)
[2022-06-09] MEDS: SODIUM FERR GLUC 62.5MG/5ML 125 MG in SODIUM CHL 0.9% 100 ML IV SCH (13:56)
[2022-06-09] MEDS ORDERED: ANGIOMAX 250 MG VIAL IV ONE (14:46)
[2022-06-09] MEDS ORDERED: fentaNYL CITRATE 100 MCG/2 ML VL ONE (14:46)
[2022-06-09] MEDS ORDERED: MIDAZOLAM HCL 2MG/2ML 2ml VIAL (1mg/ml) ONE (14:47)
[2022-06-09] MEDS ORDERED: LIDOCAINE 2%HCL (LOCAL ANESTH.) INJ 20ML MDV ONE ×2 (14:47→16:11)
[2022-06-09] MEDS ORDERED: IOHEXOL 350 MG/ML 100ML IJ ONE (14:47)
[2022-06-09] MEDS ORDERED: SODIUM CHL 0.9% 0 ML ONE (14:47)
[2022-06-09] MEDS ORDERED: IODIXANOL 320MG/ML 100ML BTL IV ONE (15:00)
[2022-06-09] MEDS ORDERED: HEPARIN SODIUM (PORCINE) 5000 UNITS/ML 1ML VIAL ONE (16:13)
[2022-06-09] MEDS: ATORVASTATIN 20 MG TAB PO SCH (22:26)
[2022-06-09] MEDS ORDERED: guaiFENesin-DM 100/10mg/5ml SYR PO PRN (22:45)
[2022-06-09] MEDS ORDERED: FUROSEMIDE 20 MG/2 ML VIAL IV ONE (22:45)
[2022-06-10] MEDS: guaiFENesin-DM 100/10mg/5ml SYR PO PRN ×2 (00:23→19:48)
[2022-06-10 05:00] VITALS: BP 109/73
[2022-06-10] MEDS: SODIUM CHLOR 0.9% PF (SALINE LOCK) 10ML VIAL/SYR IV SCH ×3 (05:42→23:16)
[2022-06-10] MEDS: LEVOTHYROXINE SODIUM 50 MCG TAB PO SCH (06:26)
[2022-06-10] MEDS ORDERED: SODIUM CHL 0.9% 1000 ML BAG XX ONE (07:00)
[2022-06-10 07:24] LABS: Hematocrit 25.7 % (41.0-53.0); Hemoglobin 8.4 g/dL (13.5-17.5)
[2022-06-10 07:42] LABS: Potassium 3.4 mmol/L (3.5-5.1)
[2022-06-10 07:52] LABS: Albumin 2.7 g/dL (3.4-5.0); BUN/Creatinine Ratio 17.9; Bilirubin, Total 0.8 mg/dL (0.2-1.0); Calcium 8.1 mg/dL (8.5-10.1); Total Protein 5.4 g/dL (6.4-8.2)
[2022-06-10] MEDS ORDERED: POTASSIUM CHL 20 Meq TABLET PO ONE (09:15)
[2022-06-10] MEDS ORDERED: BUMETANIDE 2.5mg/10ml (0.25 mg/ml) INJ IV ONE (10:00)
[2022-06-10] MEDS: AMIODARONE HCL 200 MG TAB PO SCH ×2 (11:36→23:17)
[2022-06-10] MEDS: B-COMPLEX W/ C & FOLIC ACID(NEPHROVITE TAB) PO SCH (11:37)
[2022-06-10] MEDS: SODIUM FERR GLUC 62.5MG/5ML 125 MG in SODIUM CHL 0.9% 100 ML IV SCH (11:54)
[2022-06-10] MEDS ORDERED: D5W 5% IV SCH (15:15)
[2022-06-10] MEDS ORDERED: PIPERACILLIN TAZOB IV SCH (15:15)
[2022-06-10] MEDS: PIPERACILLIN-TAZOB 2.25GM 50 ML IV SCH ×2 (15:41→23:17)
[2022-06-10] MEDS ORDERED: PIPERACILLIN-TAZOB 2.25GM 0.75 GM in D5W 5% 50 ML IV SCH (15:45)
[2022-06-10 16:30] VITALS: BP 105/72
[2022-06-10] MEDS: BUMETANIDE 2.5mg/10ml (0.25 mg/ml) INJ IV SCH (18:15)
[2022-06-10] MEDS ORDERED: EPOETIN ALFA-EPBX 4,000 UNIT/ML VIAL SC ONE (21:00)
[2022-06-10 22:00] VITALS: BP 103/65
[2022-06-10] MEDS: ATORVASTATIN 20 MG TAB PO SCH (23:16)
[2022-06-11 05:00] VITALS: BP 114/76
[2022-06-11 05:29] LABS: INR 1.14 (0.9-1.15); Partial Thromboplastin Time 31.1 sec (24.6-33.4)
[2022-06-11 05:30] LABS: Potassium 3.7 mmol/L (3.5-5.1)
[2022-06-11 05:35] LABS: Basophils # (auto) 0 10 ^3/uL (0-0.2); Basophils % (auto) 0.2 % (0.0-2.0); Eosinophils # (auto) 0 10 ^3/uL (0-0.8); Eosinophils % (auto) 0.3 % (0.0-7.0); Hematocrit 26.6 % (41.0-53.0); Hemoglobin 8.8 g/dL (13.5-17.5); Lymphocytes # (auto) 0.3 10 ^3/uL (0.4-5.4); Lymphocytes % (auto) 5.6 % (10.0-50.0); Mean Corpuscular Hemoglobin 28.7 pg (28.0-32.0); Mean Corpuscular Volume 87.1 fL (80.0-100.0); Monocytes # (auto) 0.4 10 ^3/uL (0-1.3); Monocytes % (auto) 6.1 % (0.0-12.0); Neutrophils # (auto) 5.2 10 ^3/uL (1.6-8.6); Neutrophils % (auto) 87.8 % (37.0-80.0); Nucleated Red Blood Cells % 0.1 %; Red Blood Cells 3.06 10^6/uL (4.5-5.90); Red Cell Distribution Width 17.6 % (11.8-14.3); White Blood Cell 5.9 10^3/uL (4.4-10.8)
[2022-06-11 05:39] LABS: Albumin 2.6 g/dL (3.4-5.0); BUN/Creatinine Ratio 17.1; Bilirubin, Total 0.7 mg/dL (0.2-1.0); Calcium 8.2 mg/dL (8.5-10.1)
[2022-06-11] MEDS: BUMETANIDE 2.5mg/10ml (0.25 mg/ml) INJ IV SCH ×2 (06:18→17:57)
[2022-06-11] MEDS: SODIUM CHLOR 0.9% PF (SALINE LOCK) 10ML VIAL/SYR IV SCH ×3 (06:18→22:28)
[2022-06-11] MEDS: LEVOTHYROXINE SODIUM 50 MCG TAB PO SCH (06:18)
[2022-06-11 09:00] VITALS: BP 121/77
[2022-06-11] MEDS: PIPERACILLIN-TAZOB 2.25GM 50 ML IV SCH ×2 (12:50→22:28)
[2022-06-11] MEDS: B-COMPLEX W/ C & FOLIC ACID(NEPHROVITE TAB) PO SCH (12:51)
[2022-06-11] MEDS: SODIUM FERR GLUC 62.5MG/5ML 125 MG in SODIUM CHL 0.9% 100 ML IV SCH (12:51)
[2022-06-11] MEDS: AMIODARONE HCL 200 MG TAB PO SCH ×2 (12:51→22:29)
[2022-06-11 13:00] VITALS: BP 118/77
[2022-06-11] MEDS: DOCUSATE SOD 100 MG CAP PO PRN (15:22)
[2022-06-11 17:00] VITALS: BP 110/71
[2022-06-11 21:37] VITALS: BP 102/64
[2022-06-11] MEDS: ATORVASTATIN 20 MG TAB PO SCH (22:29)
[2022-06-12] VITALS (10 sets, daily range): BP systolic 94–113; BP diastolic 58–80
[2022-06-12] MEDS: DOCUSATE SOD 100 MG CAP PO PRN ×2 (00:48→00:49)
[2022-06-12 06:52] LABS: Albumin 2.5 g/dL (3.4-5.0); Calcium 8.1 mg/dL (8.5-10.1); Potassium 3.8 mmol/L (3.5-5.1)
[2022-06-12 06:57] LABS: BUN/Creatinine Ratio 14.3; Bilirubin, Total 0.8 mg/dL (0.2-1.0); Total Protein 5.3 g/dL (6.4-8.2)
[2022-06-12] MEDS: SODIUM CHLOR 0.9% PF (SALINE LOCK) 10ML VIAL/SYR IV SCH ×3 (07:04→22:11)
[2022-06-12] MEDS: BUMETANIDE 2.5mg/10ml (0.25 mg/ml) INJ IV SCH ×2 (07:04→17:55)
[2022-06-12] MEDS: LEVOTHYROXINE SODIUM 50 MCG TAB PO SCH (07:04)
[2022-06-12] MEDS: AMIODARONE HCL 200 MG TAB PO SCH ×2 (10:16→22:10)
[2022-06-12] MEDS: PIPERACILLIN-TAZOB 2.25GM 50 ML IV SCH ×2 (10:16→22:10)
[2022-06-12] MEDS: B-COMPLEX W/ C & FOLIC ACID(NEPHROVITE TAB) PO SCH (10:17)
[2022-06-12] MEDS: SODIUM FERR GLUC 62.5MG/5ML 125 MG in SODIUM CHL 0.9% 100 ML IV SCH (13:04)
[2022-06-12 15:05] LABS: Band Neutrophils % (manual) 0; Basophils % (manual) 0 (0.0-2.0); Blast Cells 0; Eosinophils % (manual) 0 (0-7); Metamyelocytes % 0; Myelocytes % 0; Promyelocytes % 0; Reactive Lymphocytes 0
[2022-06-12 16:24] LABS: Lymphocytes % (manual) 9 (10.0-50.0); Monocytes % (manual) 3 (0-12)
[2022-06-12 16:26] LABS: Nucleated Red Blood Cells % 0.1 %; White Blood Cell 6.2 10^3/uL (4.4-10.8)
[2022-06-12] MEDS: ATORVASTATIN 20 MG TAB PO SCH (22:10)
[2022-06-12] MEDS: guaiFENesin-DM 100/10mg/5ml SYR PO PRN (22:10)
[2022-06-12] MEDS: HYDROcodone-ACET 5/325MG TAB PO PRN (22:11)
[2022-06-13 05:09] VITALS: BP 108/70
[2022-06-13] MEDS: BUMETANIDE 2.5mg/10ml (0.25 mg/ml) INJ IV SCH ×2 (05:47→17:33)
[2022-06-13] MEDS: SODIUM CHLOR 0.9% PF (SALINE LOCK) 10ML VIAL/SYR IV SCH ×3 (05:48→22:33)
[2022-06-13] MEDS: guaiFENesin-DM 100/10mg/5ml SYR PO PRN ×2 (06:05→22:33)
[2022-06-13] MEDS: LEVOTHYROXINE SODIUM 50 MCG TAB PO SCH (06:28)
[2022-06-13 07:03] LABS: Potassium 3.6 mmol/L (3.5-5.1)
[2022-06-13 07:13] LABS: Albumin 2.4 g/dL (3.4-5.0); BUN/Creatinine Ratio 14.2; Calcium 8.2 mg/dL (8.5-10.1); Phosphorus 5.3 mg/dL (2.5-4.90); Total Protein 5.7 g/dL (6.4-8.2)
[2022-06-13 09:00] VITALS: BP 110/76
[2022-06-13] MEDS: PIPERACILLIN-TAZOB 2.25GM 50 ML IV SCH ×2 (09:39→22:33)
[2022-06-13] MEDS: B-COMPLEX W/ C & FOLIC ACID(NEPHROVITE TAB) PO SCH (09:39)
[2022-06-13] MEDS: AMIODARONE HCL 200 MG TAB PO SCH ×2 (09:39→22:32)
[2022-06-13] MEDS: SODIUM FERR GLUC 62.5MG/5ML 125 MG in SODIUM CHL 0.9% 100 ML IV SCH (12:29)
[2022-06-13 12:53] VITALS: BP 99/64
[2022-06-13 16:56] VITALS: BP 117/81
[2022-06-13] MEDS ORDERED: EPOETIN ALFA-EPBX 4,000 UNIT/ML VIAL SC ONE (21:00)
[2022-06-13 22:00] VITALS: BP 108/71
[2022-06-13 22:03] LABS: Basophils # (auto) 0 10 ^3/uL (0-0.2); Eosinophils # (auto) 0 10 ^3/uL (0-0.8); Hemoglobin 8.4 g/dL (13.5-17.5); Lymphocytes # (auto) 0.3 10 ^3/uL (0.4-5.4); Mean Corpuscular Hemoglobin 28.9 pg (28.0-32.0); Monocytes # (auto) 0.3 10 ^3/uL (0-1.3); Monocytes % (auto) 4.5 % (0.0-12.0); Neutrophils # (auto) 5.8 10 ^3/uL (1.6-8.6); Red Blood Cells 2.91 10^6/uL (4.5-5.90); White Blood Cell 6.4 10^3/uL (4.4-10.8)
[2022-06-13 22:05] LABS: Basophils % (auto) 0.3 % (0.0-2.0); Eosinophils % (auto) 0.4 % (0.0-7.0); Hematocrit 25.4 % (41.0-53.0); Lymphocytes % (auto) 5.3 % (10.0-50.0); Mean Corpuscular Hgb Conc. 33.1 g/dL (32.0-36.0); Mean Corpuscular Volume 87.3 fL (80.0-100.0); Neutrophils % (auto) 89.5 % (37.0-80.0); Nucleated Red Blood Cells % 0.1 %; Red Cell Distribution Width 17.4 % (11.8-14.3)
[2022-06-13] MEDS: ATORVASTATIN 20 MG TAB PO SCH (22:33)
[2022-06-14] MEDS: TEMAZEPAM 15 MG CAP PO PRN ×2 (00:45→22:01)
[2022-06-14 05:00] VITALS: BP_SYST 103; BP_SYST 108; BP_DIAS 71; BP_DIAS 72
[2022-06-14] MEDS: BUMETANIDE 2.5mg/10ml (0.25 mg/ml) INJ IV SCH ×2 (06:49→17:58)
[2022-06-14] MEDS: SODIUM CHLOR 0.9% PF (SALINE LOCK) 10ML VIAL/SYR IV SCH ×3 (06:50→22:02)
[2022-06-14] MEDS: LEVOTHYROXINE SODIUM 50 MCG TAB PO SCH (06:50)
[2022-06-14 07:11] LABS: Potassium 3.4 mmol/L (3.5-5.1)
[2022-06-14 07:17] LABS: Albumin 2.3 g/dL (3.4-5.0); BUN/Creatinine Ratio 11.2; Bilirubin, Total 0.6 mg/dL (0.2-1.0); Calcium 7.8 mg/dL (8.5-10.1); Total Protein 5.4 g/dL (6.4-8.2)
[2022-06-14 09:00] VITALS: BP 109/76
[2022-06-14] MEDS: PIPERACILLIN-TAZOB 2.25GM 50 ML IV SCH ×2 (09:52→22:02)
[2022-06-14] MEDS: AMIODARONE HCL 200 MG TAB PO SCH ×2 (09:52→22:01)
[2022-06-14] MEDS: B-COMPLEX W/ C & FOLIC ACID(NEPHROVITE TAB) PO SCH (09:52)
[2022-06-14] MEDS: SODIUM FERR GLUC 62.5MG/5ML 125 MG in SODIUM CHL 0.9% 100 ML IV SCH (11:30)
[2022-06-14] MEDS: metOLazone 5 MG TAB PO SCH (12:54)
[2022-06-14 13:00] VITALS: BP 106/69
[2022-06-14 17:00] VITALS: BP 107/72
[2022-06-14 21:30] VITALS: BP 113/79
[2022-06-14] MEDS: ATORVASTATIN 20 MG TAB PO SCH (22:01)
[2022-06-15 05:00] VITALS: BP 115/77
[2022-06-15] MEDS: BUMETANIDE 2.5mg/10ml (0.25 mg/ml) INJ IV SCH ×2 (06:09→17:24)
[2022-06-15 06:52] LABS: Potassium 3.5 mmol/L (3.5-5.1)
[2022-06-15 06:55] LABS: Albumin 2.5 g/dL (3.4-5.0); BUN/Creatinine Ratio 12.9
[2022-06-15 06:57] LABS: Bilirubin, Total 0.8 mg/dL (0.2-1.0); Total Protein 5.3 g/dL (6.4-8.2)
[2022-06-15] MEDS: LEVOTHYROXINE SODIUM 50 MCG TAB PO SCH (06:57)
[2022-06-15] MEDS: SODIUM CHLOR 0.9% PF (SALINE LOCK) 10ML VIAL/SYR IV SCH ×2 (06:57→13:55)
[2022-06-15 09:00] VITALS: BP 122/83
[2022-06-15] MEDS: PIPERACILLIN-TAZOB 2.25GM 50 ML IV SCH ×2 (09:28→21:32)
[2022-06-15] MEDS: metOLazone 5 MG TAB PO SCH (09:29)
[2022-06-15] MEDS: B-COMPLEX W/ C & FOLIC ACID(NEPHROVITE TAB) PO SCH (09:29)
[2022-06-15] MEDS: AMIODARONE HCL 200 MG TAB PO SCH ×2 (09:30→21:32)
[2022-06-15 12:27] LABS: Hepatitis A Ab IgM Negative
[2022-06-15 12:28] LABS: Hepatitis B Core IgM Negative; Hepatitis C Antibody Negative (Negative)
[2022-06-15 13:00] VITALS: BP 122/84
[2022-06-15 16:47] VITALS: BP 117/82
[2022-06-15] MEDS: SODIUM FERR GLUC 62.5MG/5ML 125 MG in SODIUM CHL 0.9% 100 ML IV SCH (16:59)
[2022-06-15] MEDS: Ensure HIGH Protein Chocolate 8oz Bottle PO SCH (18:00)
[2022-06-15] MEDS: methylPREDNISolone SOD SUCC 40 MG/ML VL IV SCH (21:32)
[2022-06-15] MEDS: ATORVASTATIN 20 MG TAB PO SCH (21:33)
[2022-06-15 22:00] VITALS: BP 108/65
[2022-06-15] MEDS: TEMAZEPAM 15 MG CAP PO PRN (23:17)
[2022-06-16] MEDS: guaiFENesin-DM 100/10mg/5ml SYR PO PRN (00:58)
[2022-06-16 04:41] LABS: Basophils # (auto) 0 10 ^3/uL (0-0.2); Eosinophils # (auto) 0 10 ^3/uL (0-0.8); Lymphocytes # (auto) 0.1 10 ^3/uL (0.4-5.4); Monocytes # (auto) 0 10 ^3/uL (0-1.3)
[2022-06-16] MEDS: SODIUM CHLOR 0.9% PF (SALINE LOCK) 10ML VIAL/SYR IV SCH ×4 (04:42→23:39)
[2022-06-16 04:44] LABS: Basophils % (auto) 0.2 % (0.0-2.0); Hematocrit 28.5 % (41.0-53.0); Hemoglobin 9.4 g/dL (13.5-17.5); Lymphocytes % (auto) 2.6 % (10.0-50.0); Mean Corpuscular Hemoglobin 29.1 pg (28.0-32.0); Mean Corpuscular Hgb Conc. 32.8 g/dL (32.0-36.0); Mean Corpuscular Volume 88.7 fL (80.0-100.0); Monocytes % (auto) 1.1 % (0.0-12.0); Neutrophils # (auto) 4.1 10 ^3/uL (1.6-8.6); Neutrophils % (auto) 96.1 % (37.0-80.0); Nucleated Red Blood Cells % 0.1 %; Red Blood Cells 3.22 10^6/uL (4.5-5.90); Red Cell Distribution Width 18.4 % (11.8-14.3); White Blood Cell 4.3 10^3/uL (4.4-10.8)
[2022-06-16 05:00] VITALS: BP 115/80
[2022-06-16 05:03] LABS: Albumin 2.6 g/dL (3.4-5.0)
[2022-06-16 05:08] LABS: BUN/Creatinine Ratio 11.4; Bilirubin, Total 0.9 mg/dL (0.2-1.0); Total Protein 5.6 g/dL (6.4-8.2)
[2022-06-16] MEDS: BUMETANIDE 2.5mg/10ml (0.25 mg/ml) INJ IV SCH ×2 (06:06→17:34)
[2022-06-16] MEDS: LEVOTHYROXINE SODIUM 50 MCG TAB PO SCH (06:06)
[2022-06-16] MEDS: Ensure HIGH Protein Chocolate 8oz Bottle PO SCH ×3 (07:48→17:34)
[2022-06-16 09:00] VITALS: BP 118/78
[2022-06-16] MEDS: PIPERACILLIN-TAZOB 2.25GM 50 ML IV SCH ×2 (09:18→21:57)
[2022-06-16] MEDS: metOLazone 5 MG TAB PO SCH (09:18)
[2022-06-16] MEDS: AMIODARONE HCL 200 MG TAB PO SCH ×2 (09:19→21:56)
[2022-06-16] MEDS: B-COMPLEX W/ C & FOLIC ACID(NEPHROVITE TAB) PO SCH (09:19)
[2022-06-16] MEDS: methylPREDNISolone SOD SUCC 40 MG/ML VL IV SCH ×2 (09:19→21:56)
[2022-06-16] MEDS: SODIUM FERR GLUC 62.5MG/5ML 125 MG in SODIUM CHL 0.9% 100 ML IV SCH (12:37)
[2022-06-16 12:48] VITALS: BP 102/77
[2022-06-16 16:41] VITALS: BP 110/76
[2022-06-16 20:00] VITALS: BP 108/79
[2022-06-16] MEDS: ATORVASTATIN 20 MG TAB PO SCH (21:56)
[2022-06-17 05:00] VITALS: BP 114/84
[2022-06-17 05:36] LABS: Basophils # (auto) 0 10 ^3/uL (0-0.2); Basophils % (auto) 0.1 % (0.0-2.0); Eosinophils # (auto) 0 10 ^3/uL (0-0.8); Hematocrit 27.8 % (41.0-53.0); Hemoglobin 9.2 g/dL (13.5-17.5); Lymphocytes # (auto) 0.2 10 ^3/uL (0.4-5.4); Lymphocytes % (auto) 2.9 % (10.0-50.0); Mean Corpuscular Hemoglobin 29.2 pg (28.0-32.0); Mean Corpuscular Hgb Conc. 33.2 g/dL (32.0-36.0); Mean Corpuscular Volume 87.9 fL (80.0-100.0); Monocytes # (auto) 0.1 10 ^3/uL (0-1.3); Monocytes % (auto) 1.8 % (0.0-12.0); Neutrophils # (auto) 5.4 10 ^3/uL (1.6-8.6); Neutrophils % (auto) 95.2 % (37.0-80.0); Nucleated Red Blood Cells % 0.3 %; Red Blood Cells 3.16 10^6/uL (4.5-5.90); Red Cell Distribution Width 18.6 % (11.8-14.3); White Blood Cell 5.7 10^3/uL (4.4-10.8)
[2022-06-17] MEDS: LEVOTHYROXINE SODIUM 50 MCG TAB PO SCH (05:58)
[2022-06-17] MEDS: BUMETANIDE 2.5mg/10ml (0.25 mg/ml) INJ IV SCH ×2 (06:00→18:52)
[2022-06-17] MEDS: SODIUM CHLOR 0.9% PF (SALINE LOCK) 10ML VIAL/SYR IV SCH ×2 (06:16→14:00)
[2022-06-17] MEDS: Ensure HIGH Protein Chocolate 8oz Bottle PO SCH ×4 (08:00→18:00)
[2022-06-17 09:25] VITALS: BP 109/78
[2022-06-17] MEDS ORDERED: ALBUMIN 25% 100 ML IV PRN (10:15)
[2022-06-17] MEDS: AMIODARONE HCL 200 MG TAB PO SCH ×3 (11:32→21:25)
[2022-06-17] MEDS: B-COMPLEX W/ C & FOLIC ACID(NEPHROVITE TAB) PO SCH (11:32)
[2022-06-17 11:57] LABS: INR 1.13 (0.9-1.15)
[2022-06-17] MEDS: PIPERACILLIN-TAZOB 2.25GM 50 ML IV SCH ×2 (12:17→21:32)
[2022-06-17] MEDS: methylPREDNISolone SOD SUCC 40 MG/ML VL IV SCH ×2 (12:18→21:29)
[2022-06-17 12:19] VITALS: BP 130/70
[2022-06-17] MEDS: metOLazone 5 MG TAB PO SCH (12:22)
[2022-06-17] MEDS: SODIUM FERR GLUC 62.5MG/5ML 125 MG in SODIUM CHL 0.9% 100 ML IV SCH (13:13)
[2022-06-17 16:45] VITALS: BP 107/74
[2022-06-17] MEDS: Nepro With Carbsteady ButterPecan 8oz Carton PO SCH (18:00)
[2022-06-17] MEDS ORDERED: EPOETIN ALFA-EPBX 4,000 UNIT/ML VIAL SC ONE (21:00)
[2022-06-17 21:19] VITALS: BP 104/64
[2022-06-17] MEDS: ATORVASTATIN 20 MG TAB PO SCH (21:25)
[2022-06-18] VITALS (14 sets, daily range): BP systolic 108–127; BP diastolic 75–93
[2022-06-18] MEDS: LEVOTHYROXINE SODIUM 50 MCG TAB PO SCH (05:53)
[2022-06-18] MEDS: BUMETANIDE 2.5mg/10ml (0.25 mg/ml) INJ IV SCH ×2 (05:57→18:01)
[2022-06-18] MEDS: SODIUM CHLOR 0.9% PF (SALINE LOCK) 10ML VIAL/SYR IV SCH ×3 (06:59→23:56)
[2022-06-18] MEDS: Nepro With Carbsteady ButterPecan 8oz Carton PO SCH ×2 (08:00→18:00)
[2022-06-18] MEDS: AMIODARONE HCL 200 MG TAB PO SCH ×2 (09:37→23:54)
[2022-06-18] MEDS: methylPREDNISolone SOD SUCC 40 MG/ML VL IV SCH ×2 (09:37→23:55)
[2022-06-18] MEDS: PIPERACILLIN-TAZOB 2.25GM 50 ML IV SCH (09:37)
[2022-06-18] MEDS: metOLazone 5 MG TAB PO SCH (09:38)
[2022-06-18] MEDS: B-COMPLEX W/ C & FOLIC ACID(NEPHROVITE TAB) PO SCH (09:38)
[2022-06-18] MEDS ORDERED: MIDAZOLAM HCL 2MG/2ML 2ml VIAL (1mg/ml) IV ONE (10:00)
[2022-06-18] MEDS ORDERED: fentaNYL CITRATE 100 MCG/2 ML VL IV ONE (10:00)
[2022-06-18] MEDS ORDERED: LIDOCAINE 2% (LOCAL ANESTH.) PF 5ml SDV ONE (10:23)
[2022-06-18] MEDS: SODIUM FERR GLUC 62.5MG/5ML 125 MG in SODIUM CHL 0.9% 100 ML IV SCH (13:25)
[2022-06-18] MEDS: ATORVASTATIN 20 MG TAB PO SCH (23:54)
[2022-06-19] MEDS: guaiFENesin-DM 100/10mg/5ml SYR PO PRN ×2 (00:12→11:14)
[2022-06-19 04:55] VITALS: BP 115/85
[2022-06-19] MEDS: SODIUM CHLOR 0.9% PF (SALINE LOCK) 10ML VIAL/SYR IV SCH ×3 (05:36→22:00)
[2022-06-19] MEDS: BUMETANIDE 2.5mg/10ml (0.25 mg/ml) INJ IV SCH ×2 (05:37→18:13)
[2022-06-19] MEDS: LEVOTHYROXINE SODIUM 50 MCG TAB PO SCH (06:45)
[2022-06-19 08:00] VITALS: BP 115/68
[2022-06-19 09:00] VITALS: BP 115/68
[2022-06-19 09:59] LABS: Basophils # (auto) 0 10 ^3/uL (0-0.2); Basophils % (auto) 0.2 % (0.0-2.0); Eosinophils # (auto) 0 10 ^3/uL (0-0.8); Hemoglobin 9.7 g/dL (13.5-17.5); Lymphocytes # (auto) 0.1 10 ^3/uL (0.4-5.4); Red Cell Distribution Width 19.4 % (11.8-14.3)
[2022-06-19 10:00] LABS: Hematocrit 29.7 % (41.0-53.0); Lymphocytes % (auto) 1.2 % (10.0-50.0); Mean Corpuscular Hemoglobin 29.4 pg (28.0-32.0); Mean Corpuscular Hgb Conc. 32.7 g/dL (32.0-36.0); Mean Corpuscular Volume 89.8 fL (80.0-100.0); Monocytes # (auto) 0.3 10 ^3/uL (0-1.3); Monocytes % (auto) 2.8 % (0.0-12.0); Neutrophils % (auto) 95.8 % (37.0-80.0); Nucleated Red Blood Cells % 0.3 %; White Blood Cell 9.4 10^3/uL (4.4-10.8)
[2022-06-19 10:23] LABS: BUN/Creatinine Ratio 13.5; Calcium 8.2 mg/dL (8.5-10.1); Potassium 3.2 mmol/L (3.5-5.1)
[2022-06-19] MEDS: metOLazone 5 MG TAB PO SCH (11:07)
[2022-06-19] MEDS: methylPREDNISolone SOD SUCC 40 MG/ML VL IV SCH ×2 (11:07→22:15)
[2022-06-19] MEDS: CARVEDILOL 3.125 MG TAB PO SCH (11:08)
[2022-06-19] MEDS: B-COMPLEX W/ C & FOLIC ACID(NEPHROVITE TAB) PO SCH (11:08)
[2022-06-19] MEDS: AMIODARONE HCL 200 MG TAB PO SCH ×2 (11:09→22:13)
[2022-06-19] MEDS: Nepro With Carbsteady ButterPecan 8oz Carton PO SCH ×2 (12:07→18:36)
[2022-06-19] MEDS: SODIUM FERR GLUC 62.5MG/5ML 125 MG in SODIUM CHL 0.9% 100 ML IV SCH (12:45)
[2022-06-19 13:00] VITALS: BP 104/74
[2022-06-19 17:00] VITALS: BP 110/77
[2022-06-19] MEDS ORDERED: POTASSIUM CHL 20 Meq TABLET PO ONE (21:15)
[2022-06-19 22:00] VITALS: BP 104/53
[2022-06-19] MEDS: ATORVASTATIN 20 MG TAB PO SCH (22:13)
[2022-06-20] VITALS (7 sets, daily range): BP systolic 109–119; BP diastolic 82–87
[2022-06-20] MEDS: CARVEDILOL 3.125 MG TAB PO SCH ×3 (00:12→21:56)
[2022-06-20] MEDS: SODIUM CHLOR 0.9% PF (SALINE LOCK) 10ML VIAL/SYR IV SCH ×2 (05:57→14:24)
[2022-06-20] MEDS: BUMETANIDE 2.5mg/10ml (0.25 mg/ml) INJ IV SCH ×2 (06:06→18:20)
[2022-06-20] MEDS: LEVOTHYROXINE SODIUM 50 MCG TAB PO SCH (06:06)
[2022-06-20] MEDS: Nepro With Carbsteady ButterPecan 8oz Carton PO SCH ×2 (08:09→18:26)
[2022-06-20] MEDS: methylPREDNISolone SOD SUCC 40 MG/ML VL IV SCH ×2 (09:41→21:54)
[2022-06-20] MEDS: AMIODARONE HCL 200 MG TAB PO SCH ×2 (09:41→21:55)
[2022-06-20] MEDS: B-COMPLEX W/ C & FOLIC ACID(NEPHROVITE TAB) PO SCH (09:42)
[2022-06-20] MEDS: metOLazone 5 MG TAB PO SCH (09:43)
[2022-06-20] MEDS: SODIUM FERR GLUC 62.5MG/5ML 125 MG in SODIUM CHL 0.9% 100 ML IV SCH (13:03)
[2022-06-21] VITALS (7 sets, daily range): BP systolic 111–124; BP diastolic 80–89
[2022-06-21] MEDS: SODIUM CHLOR 0.9% PF (SALINE LOCK) 10ML VIAL/SYR IV SCH ×4 (01:53→22:33)
[2022-06-21] MEDS: ATORVASTATIN 20 MG TAB PO SCH ×2 (01:53→22:35)
[2022-06-21] MEDS: LEVOTHYROXINE SODIUM 50 MCG TAB PO SCH (05:55)
[2022-06-21] MEDS ORDERED: FUROSEMIDE 40 MG/4 ML VIAL IV ONE (10:15)
[2022-06-21] MEDS ORDERED: DIGOXIN 0.125 MG TAB PO SCH (10:30)
[2022-06-21] MEDS ORDERED: DIGOXIN 0.25 MG TAB PO ONE (10:30)
[2022-06-21] MEDS: CARVEDILOL 3.125 MG TAB PO SCH ×2 (10:46→22:35)
[2022-06-21] MEDS: AMIODARONE HCL 200 MG TAB PO SCH ×2 (10:47→22:33)
[2022-06-21] MEDS: B-COMPLEX W/ C & FOLIC ACID(NEPHROVITE TAB) PO SCH (10:47)
[2022-06-21] MEDS: Nepro With Carbsteady ButterPecan 8oz Carton PO SCH ×2 (10:54→17:47)
[2022-06-21] MEDS: SODIUM FERR GLUC 62.5MG/5ML 125 MG in SODIUM CHL 0.9% 100 ML IV SCH (13:40)
[2022-06-21] MEDS: FUROSEMIDE 40 MG/4 ML VIAL IV SCH (17:47)
[2022-06-22] MEDS: TEMAZEPAM 15 MG CAP PO PRN (00:26)
[2022-06-22 05:00] VITALS: BP 127/73
[2022-06-22] MEDS: FUROSEMIDE 40 MG/4 ML VIAL IV SCH ×2 (06:00→18:15)
[2022-06-22] MEDS: SODIUM CHLOR 0.9% PF (SALINE LOCK) 10ML VIAL/SYR IV SCH ×2 (06:14→13:50)
[2022-06-22] MEDS ORDERED: SODIUM CHL 0.9% 1000 ML BAG XX ONE (06:45)
[2022-06-22] MEDS ORDERED: LEVOTHYROXINE SODIUM 25 MCG TAB PO SCH (07:00)
[2022-06-22 08:05] VITALS: BP 125/76
[2022-06-22 08:19] LABS: Basophils # (auto) 0 10 ^3/uL (0-0.2); Eosinophils # (auto) 0 10 ^3/uL (0-0.8); Eosinophils % (auto) 0.1 % (0.0-7.0); Lymphocytes # (auto) 0.2 10 ^3/uL (0.4-5.4); Neutrophils # (auto) 9.7 10 ^3/uL (1.6-8.6); Nucleated Red Blood Cells % 0.1 %; White Blood Cell 10.2 10^3/uL (4.4-10.8)
[2022-06-22 08:22] LABS: Basophils % (auto) 0.3 % (0.0-2.0); Hematocrit 29.5 % (41.0-53.0); Hemoglobin 9.8 g/dL (13.5-17.5); Mean Corpuscular Hemoglobin 29.8 pg (28.0-32.0); Mean Corpuscular Hgb Conc. 33.2 g/dL (32.0-36.0); Mean Corpuscular Volume 89.6 fL (80.0-100.0); Monocytes # (auto) 0.2 10 ^3/uL (0-1.3); Monocytes % (auto) 2.4 % (0.0-12.0); Neutrophils % (auto) 95.2 % (37.0-80.0)
[2022-06-22 08:33] VITALS: BP 125/76
[2022-06-22] MEDS: Nepro With Carbsteady ButterPecan 8oz Carton PO SCH ×2 (08:34→18:15)
[2022-06-22 08:36] LABS: Albumin 2.6 g/dL (3.4-5.0); Calcium 7.8 mg/dL (8.5-10.1); Potassium 3.8 mmol/L (3.5-5.1)
[2022-06-22 08:40] LABS: BUN/Creatinine Ratio 16.8; Bilirubin, Total 0.7 mg/dL (0.2-1.0); Total Protein 5.4 g/dL (6.4-8.2)
[2022-06-22] MEDS: LEVOTHYROXINE SODIUM 50 MCG TAB PO SCH (09:15)
[2022-06-22] MEDS ORDERED: RIVAROXABAN 20 MG TAB PO SCH (10:00)
[2022-06-22] MEDS: AMIODARONE HCL 200 MG TAB PO SCH (10:14)
[2022-06-22] MEDS: B-COMPLEX W/ C & FOLIC ACID(NEPHROVITE TAB) PO SCH (10:14)
[2022-06-22] MEDS: CARVEDILOL 3.125 MG TAB PO SCH (10:16)
[2022-06-22 12:00] VITALS: BP 121/70
[2022-06-22] MEDS: SODIUM FERR GLUC 62.5MG/5ML 125 MG in SODIUM CHL 0.9% 100 ML IV SCH (12:11)
[2022-06-22 16:58] VITALS: BP 119/78
[2022-06-22 18:42] VITALS: BP 119/98
[2022-06-22] MEDS ORDERED: EPOETIN ALFA-EPBX 10,000 UNIT/1ML VIAL SC ONE (21:00)
== END 2022-06-22 20:34 | DRG 286 ==
LOC: ER 17:50 → TELE 06-05 03:52 → TELE-CENTR 06-05 17:56
PROVIDERS: ADMIT Nurse Practitioner Family; ATTEND Internal Medicine Cardiovascular Disease
PROC: 0JH63XZ Insertion of Tunneled Vascular Access Device into Chest Subcutaneous Tissue and Fascia, Percutaneous Approach (ICD-10-PCS; principal; 2022-06-09)
PROC: 4A023N8 Measurement of Cardiac Sampling and Pressure, Bilateral, Percutaneous Approach (ICD-10-PCS; 2022-06-09)
PROC: 02H633Z Insertion of Infusion Device into Right Atrium, Percutaneous Approach (ICD-10-PCS; 2022-06-09)
PROC: B548ZZA Ultrasonography of Superior Vena Cava, Guidance (ICD-10-PCS; 2022-06-09)
PROC: B215YZZ Fluoroscopy of Left Heart using Other Contrast (ICD-10-PCS; 2022-06-09)
PROC: B211YZZ Fluoroscopy of Multiple Coronary Arteries using Other Contrast (ICD-10-PCS; 2022-06-09)
PROC: B41F1ZZ Fluoroscopy of Right Lower Extremity Arteries using Low Osmolar Contrast (ICD-10-PCS; 2022-06-09)
PROC: 5A1D70Z Performance of Urinary Filtration, Intermittent, Less than 6 Hours Per Day (ICD-10-PCS; 2022-06-10)
PROC: 5A1D70Z Performance of Urinary Filtration, Intermittent, Less than 6 Hours Per Day (ICD-10-PCS; 2022-06-11)
PROC: 0W993ZZ Drainage of Right Pleural Cavity, Percutaneous Approach (ICD-10-PCS; 2022-06-12)
PROC: 5A1D70Z Performance of Urinary Filtration, Intermittent, Less than 6 Hours Per Day (ICD-10-PCS; 2022-06-13)
PROC: 5A1D70Z Performance of Urinary Filtration, Intermittent, Less than 6 Hours Per Day (ICD-10-PCS; 2022-06-15)
PROC: 5A1D70Z Performance of Urinary Filtration, Intermittent, Less than 6 Hours Per Day (ICD-10-PCS; 2022-06-17)
PROC: 0TB13ZX Excision of Left Kidney, Percutaneous Approach, Diagnostic (ICD-10-PCS; 2022-06-18)
PROC: 5A1D70Z Performance of Urinary Filtration, Intermittent, Less than 6 Hours Per Day (ICD-10-PCS; 2022-06-19)
PROC: 5A1D70Z Performance of Urinary Filtration, Intermittent, Less than 6 Hours Per Day (ICD-10-PCS; 2022-06-20)
DX: I13.2 Hypertensive heart and chronic kidney disease with heart failure and with stage 5 chronic kidney disease, or end stage renal disease (principal); I50.43 Acute on chronic combined systolic (congestive) and diastolic (congestive) heart failure; N18.6 End stage renal disease; J69.0 Pneumonitis due to inhalation of food and vomit; J96.01 Acute respiratory failure with hypoxia; N17.0 Acute kidney failure with tubular necrosis; E03.9 Hypothyroidism, unspecified; D63.8 Anemia in other chronic diseases classified elsewhere; E78.00 Pure hypercholesterolemia, unspecified; R33.9 Retention of urine, unspecified; Z20.822 Contact with and (suspected) exposure to COVID-19; I05.0 Rheumatic mitral stenosis; E11.42 Type 2 diabetes mellitus with diabetic polyneuropathy; E11.22 Type 2 diabetes mellitus with diabetic chronic kidney disease; E11.65 Type 2 diabetes mellitus with hyperglycemia; E78.5 Hyperlipidemia, unspecified; E88.09 Other disorders of plasma-protein metabolism, not elsewhere classified; I27.81 Cor pulmonale (chronic); I35.0 Nonrheumatic aortic (valve) stenosis; I48.91 Unspecified atrial fibrillation; J44.9 Chronic obstructive pulmonary disease, unspecified; D69.6 Thrombocytopenia, unspecified; Z82.49 Family history of ischemic heart disease and other diseases of the circulatory system; Z99.2 Dependence on renal dialysis
CPT/HCPCS: 10005; 36415; 36558; 36600; 70450; 71045; 74150; 75710; 76604; 76775; 76942; 77012; 80048; 80053; 80074; 80307; 81001; 82570; 82784; 82805; 83516; 83520; 83540; 83550; 83615; 83880; 83883; 83986; 84100; 84154; 84155; 84156; 84165; 84300; 84443; 84484; 85014; 85018; 85025; 85048; 85049; 85610; 85730; 86160; 86225; 86235; 86256; 86334; 86703; 86704; 86706; 86850; 86900; 86901; 87205; 89051; 90935; 92610; 93005; 93306; 93460; 96365; 96375; 97110; 97116; 97163; 97530; 99152; 99153; C1751; G0378; J1642; J2001; J2250; J2543; P9047; Q9967

== ENCOUNTER 2022-07-07 15:44 | Inpatient (IN) | payer MEDICARE, OTHER ==
[~2022-07-07] VITALS: Ht 170.2 cm; Wt 72.4 kg
[2022-07-07 16:09] LABS: Basophils # (auto) 0 10 ^3/uL (0-0.2); Basophils % (auto) 0.5 % (0.0-2.0); Eosinophils # (auto) 0 10 ^3/uL (0-0.8); Eosinophils % (auto) 0.4 % (0.0-7.0); Hematocrit 27.4 % (41.0-53.0); Hemoglobin 8.8 g/dL (13.5-17.5); Lymphocytes # (auto) 0.5 10 ^3/uL (0.4-5.4); Lymphocytes % (auto) 7.1 % (10.0-50.0); Mean Corpuscular Hemoglobin 29.8 pg (28.0-32.0); Mean Corpuscular Hgb Conc. 32.2 g/dL (32.0-36.0); Mean Corpuscular Volume 92.5 fL (80.0-100.0); Monocytes # (auto) 0.6 10 ^3/uL (0-1.3); Monocytes % (auto) 7.6 % (0.0-12.0); Neutrophils # (auto) 6.1 10 ^3/uL (1.6-8.6); Neutrophils % (auto) 84.4 % (37.0-80.0); Nucleated Red Blood Cells % 0.1 %; Red Blood Cells 2.97 10^6/uL (4.5-5.90); Red Cell Distribution Width 19.8 % (11.8-14.3); White Blood Cell 7.2 10^3/uL (4.4-10.8)
[2022-07-07 16:46] LABS: INR 1.03 (0.9-1.15); Partial Thromboplastin Time 24.7 sec (24.6-33.4)
[2022-07-07 17:15] LABS: Urine Bacteria NONE SEEN /hpf (None Seen); Urine Blood 3+ /uL (Negative); Urine WBC 53 /hpf (0 - 3)
[2022-07-07 17:22] LABS: Urine Specific Gravity 1.015 (1.001-1.035)
[2022-07-07] MEDS ORDERED: ONDANSETRON HCL 4 MG/2 ML VIAL IV PRN (19:00)
[2022-07-07] MEDS ORDERED: PANTOPRAZOLE 40 MG/10 ML VIAL INJ IV ONE (19:00)
[2022-07-07] MEDS ORDERED: DOCUSATE SOD 100 MG CAP PO PRN (19:00)
[2022-07-07] MEDS ORDERED: ACETAMINOPHEN 325 MG TAB PO PRN (19:00)
[2022-07-07] MEDS ORDERED: cloNIDine HCL 0.1 MG TAB PO PRN (19:15)
[2022-07-07] MEDS: TORSEMIDE 20 MG TAB PO SCH (20:05)
[2022-07-07 21:20] LABS: Albumin 2.5 g/dL (3.4-5.0); BUN/Creatinine Ratio 12.3; Calcium 7.2 mg/dL (8.5-10.1); Potassium 3.8 mmol/L (3.5-5.1)
[2022-07-07 21:22] LABS: Bilirubin, Total 0.5 mg/dL (0.2-1.0); Total Protein 5.4 g/dL (6.4-8.2)
[2022-07-07 23:33] VITALS: BP 144/69
[2022-07-08 05:00] VITALS: BP 134/68
[2022-07-08 05:40] LABS: Basophils # (auto) 0 10 ^3/uL (0-0.2); Basophils % (auto) 0.3 % (0.0-2.0); Eosinophils # (auto) 0 10 ^3/uL (0-0.8); Eosinophils % (auto) 0.3 % (0.0-7.0); Hematocrit 25.6 % (41.0-53.0); Hemoglobin 8.5 g/dL (13.5-17.5); Lymphocytes # (auto) 0.5 10 ^3/uL (0.4-5.4); Lymphocytes % (auto) 7.2 % (10.0-50.0); Mean Corpuscular Hemoglobin 30.5 pg (28.0-32.0); Mean Corpuscular Hgb Conc. 33.1 g/dL (32.0-36.0); Mean Corpuscular Volume 92.1 fL (80.0-100.0); Monocytes # (auto) 0.5 10 ^3/uL (0-1.3); Monocytes % (auto) 7.2 % (0.0-12.0); Red Blood Cells 2.78 10^6/uL (4.5-5.90); White Blood Cell 7.1 10^3/uL (4.4-10.8)
[2022-07-08 05:53] LABS: Calcium 7.5 mg/dL (8.5-10.1); Potassium 4.1 mmol/L (3.5-5.1)
[2022-07-08 05:59] LABS: Albumin 2.4 g/dL (3.4-5.0); BUN/Creatinine Ratio 12.6; Bilirubin, Total 0.6 mg/dL (0.2-1.0); Total Protein 4.8 g/dL (6.4-8.2)
[2022-07-08] MEDS: TORSEMIDE 20 MG TAB PO SCH ×2 (06:47→20:52)
[2022-07-08] MEDS: LEVOTHYROXINE SODIUM 50 MCG TAB PO SCH (06:48)
[2022-07-08 08:05] VITALS: BP 145/63
[2022-07-08] MEDS ORDERED: PANTOPRAZOLE 40 MG/10 ML VIAL INJ IV SCH (10:00)
[2022-07-08] MEDS ORDERED: CHLORPROMAZINE HCL 50 MG PO SCH (10:00)
[2022-07-08] MEDS ORDERED: HCTZ 25 MG TAB PO SCH (10:00)
[2022-07-08] MEDS ORDERED: ASCORBIC ACID 500 MG TAB PO SCH (10:00)
[2022-07-08] MEDS ORDERED: ZINC SULFATE PO SCH (10:00)
[2022-07-08] MEDS ORDERED: AMIODARONE HCL 200 MG TAB PO SCH (10:00)
[2022-07-08] MEDS: amLODIPine BESYLATE 5 MG TAB PO SCH (10:33)
[2022-07-08] MEDS: MULTIPLE VITAMINS W/ MINERALS TAB PO SCH (10:38)
[2022-07-08] MEDS: POTASSIUM CHL 10 Meq TABLET PO SCH (10:38)
[2022-07-08] MEDS: CHOLECALCIFEROL (VITD3) 1,000UNIT=25mCg TAB PO SCH (10:40)
[2022-07-08] MEDS ORDERED: cefTRIAXone 1GM/50ML D5W 50 ML IV ONE (12:00)
[2022-07-08 12:05] VITALS: BP 131/67
[2022-07-08] MEDS ORDERED: SODIUM CHLORIDE 0.9% 250 ML IV ONE (14:30)
[2022-07-08 16:05] VITALS: BP 132/66
[2022-07-08 20:00] VITALS: BP 114/56
[2022-07-08 21:54] VITALS: BP 114/56
[2022-07-09 04:33] VITALS: BP 127/61
[2022-07-09 05:22] LABS: Basophils # (auto) 0 10 ^3/uL (0-0.2); Basophils % (auto) 0.1 % (0.0-2.0); Eosinophils # (auto) 0 10 ^3/uL (0-0.8); Eosinophils % (auto) 0.1 % (0.0-7.0); Hematocrit 25.3 % (41.0-53.0); Hemoglobin 8.3 g/dL (13.5-17.5); Lymphocytes # (auto) 0.4 10 ^3/uL (0.4-5.4); Lymphocytes % (auto) 3.2 % (10.0-50.0); Mean Corpuscular Hgb Conc. 32.7 g/dL (32.0-36.0); Mean Corpuscular Volume 91.7 fL (80.0-100.0); Monocytes # (auto) 0.6 10 ^3/uL (0-1.3); Monocytes % (auto) 5.1 % (0.0-12.0); Neutrophils # (auto) 11.2 10 ^3/uL (1.6-8.6); Neutrophils % (auto) 91.5 % (37.0-80.0); Red Blood Cells 2.76 10^6/uL (4.5-5.90); White Blood Cell 12.3 10^3/uL (4.4-10.8)
[2022-07-09 05:39] LABS: BUN/Creatinine Ratio 12.6; Calcium 7.5 mg/dL (8.5-10.1); Phosphorus 4.8 mg/dL (2.5-4.90); Potassium 3.7 mmol/L (3.5-5.1)
[2022-07-09] MEDS: LEVOTHYROXINE SODIUM 50 MCG TAB PO SCH (06:29)
[2022-07-09] MEDS: TORSEMIDE 20 MG TAB PO SCH ×2 (06:30→17:13)
[2022-07-09] MEDS ORDERED: OMNIPAQUE ORAL SOLN 500ml 12mg/ml PO ONE (08:28)
[2022-07-09 08:41] VITALS: BP 97/61
[2022-07-09] MEDS: cefTRIAXone 1GM/50ML D5W 50 ML IV SCH (09:26)
[2022-07-09] MEDS: AMIODARONE HCL 200 MG TAB PO SCH (10:00)
[2022-07-09] MEDS: CHOLECALCIFEROL (VITD3) 1,000UNIT=25mCg TAB PO SCH (10:00)
[2022-07-09] MEDS: amLODIPine BESYLATE 5 MG TAB PO SCH (10:00)
[2022-07-09] MEDS ORDERED: IOHEXOL 300 MG/ML 100ML BOTTLE IJ ONE (10:33)
[2022-07-09 13:05] VITALS: BP 141/67
[2022-07-09] MEDS: MULTIPLE VITAMINS W/ MINERALS TAB PO SCH (14:10)
[2022-07-09] MEDS: POTASSIUM CHL 10 Meq TABLET PO SCH (14:10)
[2022-07-09 17:33] VITALS: BP 137/67
[2022-07-10 05:12] VITALS: BP 135/67
[2022-07-10] MEDS: POTASSIUM CHL 10 Meq TABLET PO SCH (08:47)
[2022-07-10] MEDS: MULTIPLE VITAMINS W/ MINERALS TAB PO SCH (08:47)
[2022-07-10] MEDS: TORSEMIDE 20 MG TAB PO SCH ×2 (08:48→17:23)
[2022-07-10] MEDS: amLODIPine BESYLATE 5 MG TAB PO SCH (08:49)
[2022-07-10] MEDS: LEVOTHYROXINE SODIUM 50 MCG TAB PO SCH (08:50)
[2022-07-10] MEDS: AMIODARONE HCL 200 MG TAB PO SCH (08:50)
[2022-07-10] MEDS: cefTRIAXone 1GM/50ML D5W 50 ML IV SCH (08:50)
[2022-07-10 09:40] VITALS: BP 130/64
[2022-07-10] MEDS: CHOLECALCIFEROL (VITD3) 1,000UNIT=25mCg TAB PO SCH (10:37)
[2022-07-10 11:37] LABS: Urine Bacteria FEW /hpf (None Seen); Urine Blood 2+ /uL (Negative); Urine WBC 14 /hpf (0 - 3)
[2022-07-10 11:58] LABS: Protein, Urine 360.9 mg/dL (0.0-11.9)
[2022-07-10 16:40] VITALS: BP 127/67
[2022-07-10 22:00] VITALS: BP 124/68
[2022-07-11 05:00] VITALS: BP 132/72
[2022-07-11] MEDS: TORSEMIDE 20 MG TAB PO SCH ×2 (06:11→18:42)
[2022-07-11] MEDS: LEVOTHYROXINE SODIUM 50 MCG TAB PO SCH (06:12)
[2022-07-11 08:00] VITALS: BP 135/67
[2022-07-11] MEDS: cefTRIAXone 1GM/50ML D5W 50 ML IV SCH (09:40)
[2022-07-11] MEDS: MULTIPLE VITAMINS W/ MINERALS TAB PO SCH (09:40)
[2022-07-11] MEDS: amLODIPine BESYLATE 5 MG TAB PO SCH (09:40)
[2022-07-11] MEDS: AMIODARONE HCL 200 MG TAB PO SCH (09:40)
[2022-07-11] MEDS: POTASSIUM CHL 10 Meq TABLET PO SCH (09:40)
[2022-07-11] MEDS: CHOLECALCIFEROL (VITD3) 1,000UNIT=25mCg TAB PO SCH (10:00)
[2022-07-11 12:00] VITALS: BP 119/74
[2022-07-11] MEDS ORDERED: SODIUM CHL 0.9% 1000 ML BAG XX ONE (12:15)
[2022-07-11 16:00] VITALS: BP 130/80
[2022-07-11 22:00] VITALS: BP 120/65
[2022-07-12 05:00] VITALS: BP 141/76
[2022-07-12] MEDS: LEVOTHYROXINE SODIUM 50 MCG TAB PO SCH (05:59)
[2022-07-12] MEDS: TORSEMIDE 20 MG TAB PO SCH ×2 (06:00→18:10)
[2022-07-12 09:00] VITALS: BP 146/71
[2022-07-12] MEDS: cefTRIAXone 1GM/50ML D5W 50 ML IV SCH (09:52)
[2022-07-12] MEDS: MULTIPLE VITAMINS W/ MINERALS TAB PO SCH (09:53)
[2022-07-12] MEDS: AMIODARONE HCL 200 MG TAB PO SCH (09:53)
[2022-07-12] MEDS: amLODIPine BESYLATE 5 MG TAB PO SCH (09:53)
[2022-07-12] MEDS: CHOLECALCIFEROL (VITD3) 1,000UNIT=25mCg TAB PO SCH (09:53)
[2022-07-12] MEDS: POTASSIUM CHL 10 Meq TABLET PO SCH (09:54)
[2022-07-12] MEDS ORDERED: TESTOSTERONE CYPIONATE 200 MG/ML 1ML VIAL IM ONE (10:45)
[2022-07-12 11:25] LABS: Basophils # (auto) 0 10 ^3/uL (0-0.2); Basophils % (auto) 0.4 % (0.0-2.0); Eosinophils # (auto) 0.1 10 ^3/uL (0-0.8); Hemoglobin 8.7 g/dL (13.5-17.5); Lymphocytes # (auto) 0.3 10 ^3/uL (0.4-5.4); Lymphocytes % (auto) 6.4 % (10.0-50.0); Mean Corpuscular Hemoglobin 29.9 pg (28.0-32.0); Mean Corpuscular Hgb Conc. 32.3 g/dL (32.0-36.0); Mean Corpuscular Volume 92.5 fL (80.0-100.0); Monocytes # (auto) 0.3 10 ^3/uL (0-1.3); Monocytes % (auto) 5.4 % (0.0-12.0); Neutrophils # (auto) 4.7 10 ^3/uL (1.6-8.6); Neutrophils % (auto) 86.8 % (37.0-80.0); Nucleated Red Blood Cells % 0.1 %; Red Blood Cells 2.92 10^6/uL (4.5-5.90); Red Cell Distribution Width 19.6 % (11.8-14.3); White Blood Cell 5.4 10^3/uL (4.4-10.8)
[2022-07-12 11:39] LABS: Albumin 2.2 g/dL (3.4-5.0); Calcium 7.5 mg/dL (8.5-10.1); Potassium 3.4 mmol/L (3.5-5.1)
[2022-07-12 11:42] LABS: BUN/Creatinine Ratio 11.1; Bilirubin, Total 0.3 mg/dL (0.2-1.0); Total Protein 4.9 g/dL (6.4-8.2)
[2022-07-12 13:00] VITALS: BP 124/71
[2022-07-12 17:00] VITALS: BP 129/70
[2022-07-12] MEDS: MEGESTROL ACETATE 20 MG TAB PO SCH (21:39)
[2022-07-12 22:00] VITALS: BP 130/68
[2022-07-13 05:00] VITALS: BP 126/74
[2022-07-13] MEDS: TORSEMIDE 20 MG TAB PO SCH ×2 (06:03→17:30)
[2022-07-13] MEDS: LEVOTHYROXINE SODIUM 50 MCG TAB PO SCH (06:04)
[2022-07-13 06:23] LABS: Hemoglobin 8.2 g/dL (13.5-17.5)
[2022-07-13 06:26] LABS: Hematocrit 24.8 % (41.0-53.0); Mean Corpuscular Hemoglobin 30.5 pg (28.0-32.0); Mean Corpuscular Hgb Conc. 33.3 g/dL (32.0-36.0); Mean Corpuscular Volume 91.8 fL (80.0-100.0); Red Cell Distribution Width 19.2 % (11.8-14.3); White Blood Cell 5.4 10^3/uL (4.4-10.8)
[2022-07-13 06:43] LABS: BUN/Creatinine Ratio 11.9; Calcium 7.5 mg/dL (8.5-10.1); Potassium 3.2 mmol/L (3.5-5.1)
[2022-07-13 06:45] LABS: Basophils % (manual) 0 (0.0-2.0); Blast Cells 0; Metamyelocytes % 0; Myelocytes % 0; Promyelocytes % 0; Reactive Lymphocytes 0
[2022-07-13] MEDS: cefTRIAXone 1GM/50ML D5W 50 ML IV SCH (08:33)
[2022-07-13 08:46] VITALS: BP 140/77
[2022-07-13] MEDS: MULTIPLE VITAMINS W/ MINERALS TAB PO SCH (09:35)
[2022-07-13] MEDS: CHOLECALCIFEROL (VITD3) 1,000UNIT=25mCg TAB PO SCH (09:35)
[2022-07-13] MEDS: POTASSIUM CHL 10 Meq TABLET PO SCH (09:35)
[2022-07-13] MEDS: AMIODARONE HCL 200 MG TAB PO SCH (09:35)
[2022-07-13] MEDS: MEGESTROL ACETATE 20 MG TAB PO SCH ×2 (09:35→21:18)
[2022-07-13] MEDS: amLODIPine BESYLATE 5 MG TAB PO SCH (09:36)
[2022-07-13 12:23] LABS: Band Neutrophils % (manual) 2; Eosinophils % (manual) 2 (0-7); Lymphocytes % (manual) 12 (10.0-50.0); Monocytes % (manual) 5 (0-12)
[2022-07-13 12:45] LABS: Hepatitis A Ab IgM Negative; Hepatitis B Core IgM Negative; Hepatitis C Antibody Negative (Negative)
[2022-07-13 13:00] VITALS: BP 124/67
[2022-07-13 17:00] VITALS: BP 116/64
[2022-07-13 22:00] VITALS: BP 129/69
[2022-07-14 05:00] VITALS: BP 140/77
[2022-07-14] MEDS: TORSEMIDE 20 MG TAB PO SCH ×2 (05:51→18:15)
[2022-07-14] MEDS: LEVOTHYROXINE SODIUM 50 MCG TAB PO SCH (05:51)
[2022-07-14 09:00] VITALS: BP 137/74
[2022-07-14] MEDS: cefTRIAXone 1GM/50ML D5W 50 ML IV SCH (09:21)
[2022-07-14] MEDS: MULTIPLE VITAMINS W/ MINERALS TAB PO SCH (09:21)
[2022-07-14] MEDS: POTASSIUM CHL 10 Meq TABLET PO SCH (09:21)
[2022-07-14] MEDS: MEGESTROL ACETATE 20 MG TAB PO SCH ×2 (09:21→21:32)
[2022-07-14] MEDS: AMIODARONE HCL 200 MG TAB PO SCH (09:22)
[2022-07-14] MEDS: amLODIPine BESYLATE 5 MG TAB PO SCH (09:24)
[2022-07-14] MEDS: CHOLECALCIFEROL (VITD3) 1,000UNIT=25mCg TAB PO SCH (09:25)
[2022-07-14] MEDS ORDERED: SODIUM CHL 0.9% 1000 ML BAG XX ONE (09:45)
[2022-07-14 13:00] VITALS: BP 132/98
[2022-07-14] MEDS: POTASSIUM CHL 20MEQ/100ML 100 ML IV SCH ×3 (13:31→20:00)
[2022-07-14 17:00] VITALS: BP 147/68
[2022-07-14 20:00] VITALS: BP 124/65
[2022-07-14] MEDS ORDERED: EPOETIN ALFA-EPBX 10,000 UNIT/1ML VIAL SC ONE (21:00)
[2022-07-14 22:00] VITALS: BP 124/65
[2022-07-15 05:00] VITALS: BP 137/68
[2022-07-15] MEDS: LEVOTHYROXINE SODIUM 50 MCG TAB PO SCH (06:36)
[2022-07-15] MEDS: TORSEMIDE 20 MG TAB PO SCH (06:36)
[2022-07-15 08:44] VITALS: BP 124/60
[2022-07-15] MEDS: cefTRIAXone 1GM/50ML D5W 50 ML IV SCH (09:59)
[2022-07-15] MEDS: amLODIPine BESYLATE 5 MG TAB PO SCH (10:00)
[2022-07-15] MEDS: MULTIPLE VITAMINS W/ MINERALS TAB PO SCH (10:00)
[2022-07-15] MEDS: POTASSIUM CHL 10 Meq TABLET PO SCH (10:00)
[2022-07-15] MEDS: AMIODARONE HCL 200 MG TAB PO SCH (10:00)
[2022-07-15 10:33] LABS: Magnesium 1.9 mg/dL (1.6-2.6); Phosphorus 4.2 mg/dL (2.5-4.90)
[2022-07-15] MEDS: MEGESTROL ACETATE 20 MG TAB PO SCH (11:34)
[2022-07-15] MEDS: CHOLECALCIFEROL (VITD3) 1,000UNIT=25mCg TAB PO SCH (11:34)
[2022-07-15 13:00] VITALS: BP_SYST 124; BP_SYST 127; BP_DIAS 60; BP_DIAS 61
[2022-07-15 17:00] VITALS: BP 115/61
[2022-07-16] MEDS ORDERED: SODIUM CHL 0.9% 1000 ML BAG XX ONE (07:00)
[2022-07-16] MEDS ORDERED: EPOETIN ALFA-EPBX 10,000 UNIT/1ML VIAL SC ONE (21:00)
== END 2022-07-15 18:15 | DRG 682 ==
LOC: ER 15:44 → EDBD 15:44 → OVERFLOW 18:57 → WEST WING 22:36
PROVIDERS: ADMIT Nurse Practitioner Family; ATTEND Internal Medicine Cardiovascular Disease
PROC: 5A1D70Z Performance of Urinary Filtration, Intermittent, Less than 6 Hours Per Day (ICD-10-PCS; 2022-07-11)
PROC: 5A1D70Z Performance of Urinary Filtration, Intermittent, Less than 6 Hours Per Day (ICD-10-PCS; principal; 2022-07-14)
DX: N17.9 Acute kidney failure, unspecified (principal); I50.33 Acute on chronic diastolic (congestive) heart failure; I13.2 Hypertensive heart and chronic kidney disease with heart failure and with stage 5 chronic kidney disease, or end stage renal disease; N39.0 Urinary tract infection, site not specified; D68.69 Other thrombophilia; N18.6 End stage renal disease; R31.0 Gross hematuria; J44.9 Chronic obstructive pulmonary disease, unspecified; D50.0 Iron deficiency anemia secondary to blood loss (chronic); K44.9 Diaphragmatic hernia without obstruction or gangrene; E11.42 Type 2 diabetes mellitus with diabetic polyneuropathy; D69.6 Thrombocytopenia, unspecified; K40.90 Unilateral inguinal hernia, without obstruction or gangrene, not specified as recurrent; E87.6 Hypokalemia; E78.5 Hyperlipidemia, unspecified; I25.10 Atherosclerotic heart disease of native coronary artery without angina pectoris; E03.9 Hypothyroidism, unspecified; E11.22 Type 2 diabetes mellitus with diabetic chronic kidney disease; I27.81 Cor pulmonale (chronic); I48.91 Unspecified atrial fibrillation; Z79.899 Other long term (current) drug therapy; Z99.2 Dependence on renal dialysis; Z79.01 Long term (current) use of anticoagulants; Z74.01 Bed confinement status; Z82.49 Family history of ischemic heart disease and other diseases of the circulatory system; I25.2 Old myocardial infarction
CPT/HCPCS: 36415; 71045; 71260; 74177; 76856; 80048; 80053; 80074; 81001; 82306; 82570; 83735; 83970; 84100; 84156; 84300; 85007; 85025; 85027; 85610; 85730; 87081; 87086; 87088; 87186; 87426; 90935; 96374; 97110; 97116; 97163; 97530; C9113; G0378; J0696; J1071; J1642; J3480

== ENCOUNTER → 2022-08-11 | Outpatient (CLI) | payer MEDICARE ==
[2022-08-11 11:21] LABS: Basophils # (auto) 0 10 ^3/uL (0-0.2); Basophils % (auto) 0.3 % (0.0-2.0); Eosinophils # (auto) 0 10 ^3/uL (0-0.8); Eosinophils % (auto) 0.5 % (0.0-7.0); Hemoglobin 9.8 g/dL (13.5-17.5); Lymphocytes # (auto) 0.7 10 ^3/uL (0.4-5.4); Lymphocytes % (auto) 9.2 % (10.0-50.0); Mean Corpuscular Hemoglobin 29.7 pg (28.0-32.0); Mean Corpuscular Hgb Conc. 32.6 g/dL (32.0-36.0); Monocytes # (auto) 0.4 10 ^3/uL (0-1.3); Monocytes % (auto) 5.9 % (0.0-12.0); Neutrophils # (auto) 5.9 10 ^3/uL (1.6-8.6); Neutrophils % (auto) 84.1 % (37.0-80.0); Nucleated Red Blood Cells % 0.1 %; Red Cell Distribution Width 17.2 % (11.8-14.3); White Blood Cell 7.1 10^3/uL (4.4-10.8)
[2022-08-11 12:04] LABS: BUN/Creatinine Ratio 11.2; Calcium 8.4 mg/dL (8.5-10.1); Potassium 3.9 mmol/L (3.5-5.1)
== END | disposition home or self-care (01) ==
LOC: LAB 10:25
PROVIDERS: ATTEND Internal Medicine Cardiovascular Disease
DX: I10 Essential (primary) hypertension (principal)
CPT/HCPCS: 36415; 80048; 85025

== ENCOUNTER → 2022-10-20 | Outpatient (CLI) | payer MEDICARE, BC | END | disposition home or self-care (01) | LOC: Rad HDHVI 12:52 | PROVIDERS: ATTEND Internal Medicine Cardiovascular Disease | DX: I08.3 Combined rheumatic disorders of mitral, aortic and tricuspid valves (principal); R06.02 Shortness of breath | CPT/HCPCS: 93306 ==

== ENCOUNTER 2022-11-23 07:24 | Emergency (ER) | payer MEDICARE, BC ==
[~2022-11-23] VITALS: Ht 180.3 cm; Wt 66.5 kg
[2022-11-23] MEDS ORDERED: ACETAMINOPHEN 500 MG TAB PO ONE (08:15)
[2022-11-23 08:18] VITALS: BP 118/46
[2022-11-23] MEDS ORDERED: ACET1CAP14 PO (09:32)
== END 2022-11-23 09:33 | disposition home or self-care (01) ==
LOC: ER 07:24
DX: S63.591A Other specified sprain of right wrist, initial encounter (principal); J44.9 Chronic obstructive pulmonary disease, unspecified; E78.5 Hyperlipidemia, unspecified; I11.0 Hypertensive heart disease with heart failure; I50.9 Heart failure, unspecified; I25.2 Old myocardial infarction; Z79.899 Other long term (current) drug therapy; W22.8XXA Striking against or struck by other objects, initial encounter; Y93.89 Activity, other specified; Y92.89 Other specified places as the place of occurrence of the external cause; Y99.8 Other external cause status
CPT/HCPCS: 73110

== ENCOUNTER 2023-01-21 06:17 | Inpatient (IN) | payer BC, MEDICARE ==
[2023-01-19 11:51] LABS: Basophils # (auto) 0 10 ^3/uL (0-0.2); Basophils % (auto) 0.4 % (0.0-2.0); Eosinophils # (auto) 0 10 ^3/uL (0-0.8); Eosinophils % (auto) 0.1 % (0.0-7.0); Hematocrit 35.5 % (41.0-53.0); Hemoglobin 11.8 g/dL (13.5-17.5); Lymphocytes # (auto) 0.8 10 ^3/uL (0.4-5.4); Lymphocytes % (auto) 8.7 % (10.0-50.0); Mean Corpuscular Hemoglobin 32.5 pg (28.0-32.0); Mean Corpuscular Hgb Conc. 33.3 g/dL (32.0-36.0); Mean Corpuscular Volume 97.7 fL (80.0-100.0); Monocytes # (auto) 0.6 10 ^3/uL (0-1.3); Monocytes % (auto) 7.2 % (0.0-12.0); Neutrophils # (auto) 7.4 10 ^3/uL (1.6-8.6); Neutrophils % (auto) 83.6 % (37.0-80.0); Nucleated Red Blood Cells % 0.2 %; Red Blood Cells 3.63 10^6/uL (4.5-5.90); White Blood Cell 8.8 10^3/uL (4.4-10.8)
[2023-01-19 12:05] LABS: INR 1.03 (0.9-1.15); Partial Thromboplastin Time 26.8 sec (24.6-33.4)
[2023-01-19 12:11] LABS: Albumin 3.4 g/dL (3.4-5.0); Calcium 8.3 mg/dL (8.5-10.1); Potassium 4.8 mmol/L (3.5-5.1)
[2023-01-19 12:15] LABS: BUN/Creatinine Ratio 7.1 (10.0-20.0); Bilirubin, Total 0.7 mg/dL (0.2-1.0)
[2023-01-20 15:55] LABS: Urine Bacteria MOD /hpf (None Seen); Urine Blood 2+ /uL (Negative); Urine WBC 4441 /hpf (0 - 3); Urine WBC Clumps PRESENT /hpf (None Seen)
[2023-01-20 15:59] LABS: Urine Specific Gravity 1.023 (1.001-1.035)
[~2023-01-21] VITALS: Ht 180.3 cm; Wt 63.6 kg
[~2023-01-21 06:17] MED LIST changes: +B-COTAB10 PO; -CHLO50TA3 PO; +HYDR1SYP3 PO; -HYDR25TA5 PO; -LEVO50TA7 PO; +MEGE20TA5 PO; -MULT-688 PO; -POTA10TA51 PO; -RIVA10TA PO; +TORS20TA19 PO
[2023-01-21] MEDS ORDERED: BUPIVACAINE IMPLANT 3x100mg IL ONE (06:45)
[2023-01-21] MEDS ORDERED: LIDOCAINE W/ EPINEPHRINE 1% 20ML VIAL ONE (06:49)
[2023-01-21] MEDS ORDERED: BUPIVACAINE 0.25% INJ 50ML VIAL ONE (06:50)
[2023-01-21] MEDS ORDERED: ceFAZolin 1GM/50ML 100 ML IV ONE (06:58)
[2023-01-21] MEDS ORDERED: MIDAZOLAM HCL 2MG/2ML 2ml VIAL (1mg/ml) ONE (07:32)
[2023-01-21] MEDS ORDERED: fentaNYL CITRATE 5 ML ONE (07:32)
[2023-01-21] MEDS ORDERED: ETOMIDATE (2MG/ML) 20ML VIAL IV ONE (08:38)
[2023-01-21] MEDS ORDERED: ONDANSETRON HCL 4 MG/2 ML VIAL ONE (08:38)
[2023-01-21] MEDS ORDERED: PROPOFOL 10 MG/ML 20 ML IV ONE (08:38)
[2023-01-21] MEDS ORDERED: KETAMINE HCL 10 ML ONE (08:42)
[2023-01-21] MEDS ORDERED: HYDROmorphone HCL 2 MG/ML VL/or syr IV PRN ×3 (08:45)
[2023-01-21] MEDS ORDERED: ceFAZolin 1GM/50ML 50 ML IV ONE (08:45)
[2023-01-21] MEDS ORDERED: ONDANSETRON HCL 4 MG/2 ML VIAL IV PRN ×3 (08:45→18:45)
[2023-01-21] MEDS: PANTOPRAZOLE 40 MG/10 ML VIAL INJ IV SCH (10:00)
[2023-01-21 12:00] VITALS: BP 136/59
[2023-01-21] MEDS: D5W/SOD CHL 0.45% 1,000 ML IV SCH (16:58)
[2023-01-21 17:00] VITALS: BP 113/59
[2023-01-21 18:02] VITALS: BP 113/59
[2023-01-21] MEDS ORDERED: DOCUSATE SOD 100 MG CAP PO PRN (18:45)
[2023-01-21] MEDS ORDERED: DEXTROSE (50%) 50ML SYRG IV PRN (18:45)
[2023-01-21] MEDS ORDERED: cloNIDine HCL 0.1 MG TAB PO PRN (18:45)
[2023-01-21] MEDS ORDERED: MORPHINE SULFATE INJ 2 MG/ml SYRG IV PRN (18:45)
[2023-01-21] MEDS: ACETAMINOPHEN/CODEINE#3 (300/30mg) TAB PO PRN (19:33)
[2023-01-21 20:39] LABS: Hematocrit 32.5 % (41.0-53.0); Hemoglobin 10.8 g/dL (13.5-17.5)
[2023-01-21 21:37] LABS: Magnesium 2.1 mg/dL (1.6-2.6); Phosphorus 6.9 mg/dL (2.5-4.90)
[2023-01-21] MEDS: MORPHINE SULFATE INJ 2 MG/ml SYRG IV PRN (21:40)
[2023-01-21 22:00] VITALS: BP 115/54
[2023-01-21] MEDS: InsuLIN REG 1unit/0.01ml Soln (100units/ml) SC SCH (22:00)
[2023-01-21] MEDS: TORSEMIDE 20 MG TAB PO SCH (22:16)
[2023-01-21] MEDS: MEGESTROL ACETATE 20 MG TAB PO SCH (22:16)
[2023-01-21] MEDS: ACCU-CHEK COMFORT CURVE STRIP VI SCH (22:26)
[2023-01-22] VITALS (7 sets, daily range): BP systolic 95–140; BP diastolic 46–71
[2023-01-22] MEDS: HYDROmorphone HCL 2 MG/ML VL/or syr IV PRN ×3 (00:52→23:05)
[2023-01-22] MEDS: D5W/SOD CHL 0.45% 1,000 ML IV SCH (04:45)
[2023-01-22 06:16] LABS: Basophils # (auto) 0 10 ^3/uL (0-0.2); Basophils % (auto) 0.3 % (0.0-2.0); Eosinophils # (auto) 0 10 ^3/uL (0-0.8); Eosinophils % (auto) 0.1 % (0.0-7.0); Hematocrit 33.3 % (41.0-53.0); Hemoglobin 11.2 g/dL (13.5-17.5); Lymphocytes # (auto) 0.4 10 ^3/uL (0.4-5.4); Lymphocytes % (auto) 4.2 % (10.0-50.0); Mean Corpuscular Hemoglobin 33.3 pg (28.0-32.0); Mean Corpuscular Hgb Conc. 33.6 g/dL (32.0-36.0); Mean Corpuscular Volume 99.1 fL (80.0-100.0); Monocytes # (auto) 0.7 10 ^3/uL (0-1.3); Neutrophils % (auto) 88.4 % (37.0-80.0); Nucleated Red Blood Cells % 0.2 %; Red Blood Cells 3.36 10^6/uL (4.5-5.90); White Blood Cell 10.2 10^3/uL (4.4-10.8)
[2023-01-22] MEDS: ACCU-CHEK COMFORT CURVE STRIP VI SCH ×4 (06:23→22:19)
[2023-01-22] MEDS: InsuLIN REG 1unit/0.01ml Soln (100units/ml) SC SCH ×4 (06:24→22:38)
[2023-01-22 06:47] LABS: Albumin 2.8 g/dL (3.4-5.0); BUN/Creatinine Ratio 6.1 (10.0-20.0); Bilirubin, Total 0.7 mg/dL (0.2-1.0); Calcium 7.9 mg/dL (8.5-10.1); Total Protein 6.7 g/dL (6.4-8.2)
[2023-01-22 07:10] LABS: Potassium 5.9 mmol/L (3.5-5.1)
[2023-01-22] MEDS: AMIODARONE HCL 200 MG TAB PO SCH (09:30)
[2023-01-22] MEDS: PANTOPRAZOLE 40 MG/10 ML VIAL INJ IV SCH (09:30)
[2023-01-22] MEDS: MEGESTROL ACETATE 20 MG TAB PO SCH ×2 (09:30→22:18)
[2023-01-22] MEDS: ATORVASTATIN 20 MG TAB PO SCH (09:30)
[2023-01-22] MEDS: CHOLECALCIFEROL (VITD3) 2,000 UNIT CAP/TAB PO SCH (09:31)
[2023-01-22] MEDS ORDERED: ASCORBIC ACID 500 MG TAB PO SCH (10:00)
[2023-01-22] MEDS ORDERED: PANTOPRAZOLE 40 MG/10 ML VIAL INJ IV SCH (10:00)
[2023-01-22] MEDS: amLODIPine BESYLATE 5 MG TAB PO SCH (10:00)
[2023-01-22] MEDS: TORSEMIDE 20 MG TAB PO SCH ×2 (10:00→22:00)
[2023-01-22] MEDS ORDERED: ZINC SULFATE 220mg CAP or TAB PO SCH (10:00)
[2023-01-22] MEDS ORDERED: cefTRIAXone 1GM/50ML D5W 50 ML IV ONE (10:45)
[2023-01-22] MEDS ORDERED: SODIUM ZIRCONIUM CYCL 10 GM PAK PO ONE (10:45)
[2023-01-22] MEDS ORDERED: SODIUM CHL 0.9% 1000 ML BAG XX ONE (11:45)
[2023-01-23] MEDS: guaiFENesin-DM 100/10mg/5ml SYR PO PRN (00:20)
[2023-01-23] MEDS: HYDROmorphone HCL 2 MG/ML VL/or syr IV PRN (02:15)
[2023-01-23 05:00] VITALS: BP 111/55
[2023-01-23 05:43] LABS: Basophils # (auto) 0 10 ^3/uL (0-0.2); Basophils % (auto) 0.4 % (0.0-2.0); Eosinophils # (auto) 0 10 ^3/uL (0-0.8); Eosinophils % (auto) 0.3 % (0.0-7.0); Hematocrit 31.6 % (41.0-53.0); Hemoglobin 10.8 g/dL (13.5-17.5); Lymphocytes # (auto) 0.6 10 ^3/uL (0.4-5.4); Lymphocytes % (auto) 6.3 % (10.0-50.0); Mean Corpuscular Hemoglobin 33.1 pg (28.0-32.0); Mean Corpuscular Volume 97.3 fL (80.0-100.0); Monocytes # (auto) 0.9 10 ^3/uL (0-1.3); Monocytes % (auto) 9.2 % (0.0-12.0); Neutrophils # (auto) 8.4 10 ^3/uL (1.6-8.6); Neutrophils % (auto) 83.8 % (37.0-80.0); Nucleated Red Blood Cells % 0.1 %; Red Blood Cells 3.25 10^6/uL (4.5-5.90); Red Cell Distribution Width 16.6 % (11.8-14.3)
[2023-01-23 05:49] LABS: Calcium 8.4 mg/dL (8.5-10.1); Potassium 5.4 mmol/L (3.5-5.1)
[2023-01-23 05:52] LABS: BUN/Creatinine Ratio 5.4 (10.0-20.0)
[2023-01-23] MEDS: ACCU-CHEK COMFORT CURVE STRIP VI SCH ×5 (06:45→22:33)
[2023-01-23] MEDS: InsuLIN REG 1unit/0.01ml Soln (100units/ml) SC SCH ×4 (06:51→22:40)
[2023-01-23 08:00] VITALS: BP_SYST 128; BP_SYST 129; BP_DIAS 57; BP_DIAS 60
[2023-01-23] MEDS ORDERED: InsuLIN REG 1unit/0.01ml Soln (100units/ml) IV ONE (08:15)
[2023-01-23] MEDS ORDERED: SODIUM BICARBONATE 8.4% INJ 50ML SYRINGE IV ONE (08:15)
[2023-01-23] MEDS ORDERED: DEXTROSE (50%) 50ML SYRG IV ONE (08:15)
[2023-01-23] MEDS: CHOLECALCIFEROL (VITD3) 2,000 UNIT CAP/TAB PO SCH (09:32)
[2023-01-23] MEDS: cefTRIAXone 1GM/50ML D5W 50 ML IV SCH (09:32)
[2023-01-23] MEDS: MEGESTROL ACETATE 20 MG TAB PO SCH ×2 (09:33→22:32)
[2023-01-23] MEDS: AMIODARONE HCL 200 MG TAB PO SCH (09:33)
[2023-01-23] MEDS: amLODIPine BESYLATE 5 MG TAB PO SCH (09:34)
[2023-01-23] MEDS ORDERED: DEXTROSE 10% 250 ML IV ONE (09:42)
[2023-01-23] MEDS: ATORVASTATIN 20 MG TAB PO SCH (09:44)
[2023-01-23] MEDS: PANTOPRAZOLE 40 MG/10 ML VIAL INJ IV SCH (09:44)
[2023-01-23] MEDS: ACETAMINOPHEN/CODEINE#3 (300/30mg) TAB PO PRN ×3 (10:16→22:30)
[2023-01-23] MEDS: TORSEMIDE 20 MG TAB PO SCH ×2 (10:17→22:33)
[2023-01-23 12:00] VITALS: BP 129/57
[2023-01-23 16:00] VITALS: BP 115/55
[2023-01-23 22:00] VITALS: BP 117/57
[2023-01-24 05:00] VITALS: BP 124/63
[2023-01-24] MEDS: ACCU-CHEK COMFORT CURVE STRIP VI SCH ×4 (06:26→21:43)
[2023-01-24] MEDS: InsuLIN REG 1unit/0.01ml Soln (100units/ml) SC SCH ×4 (06:31→21:44)
[2023-01-24 08:00] VITALS: BP 97/58
[2023-01-24] MEDS ORDERED: ALBUMIN 25% 100 ML IV ONE ×2 (09:15→09:30)
[2023-01-24 12:00] VITALS: BP 125/56
[2023-01-24] MEDS: guaiFENesin-DM 100/10mg/5ml SYR PO PRN ×2 (13:19→20:36)
[2023-01-24] MEDS: cefTRIAXone 1GM/50ML D5W 50 ML IV SCH (14:22)
[2023-01-24] MEDS: AMIODARONE HCL 200 MG TAB PO SCH (14:29)
[2023-01-24] MEDS: PANTOPRAZOLE 40 MG/10 ML VIAL INJ IV SCH (14:29)
[2023-01-24] MEDS: CHOLECALCIFEROL (VITD3) 2,000 UNIT CAP/TAB PO SCH (14:32)
[2023-01-24] MEDS: ATORVASTATIN 20 MG TAB PO SCH (14:32)
[2023-01-24] MEDS: TORSEMIDE 20 MG TAB PO SCH ×2 (14:35→21:43)
[2023-01-24] MEDS: MEGESTROL ACETATE 20 MG TAB PO SCH ×2 (14:36→21:43)
[2023-01-24] MEDS: amLODIPine BESYLATE 5 MG TAB PO SCH (14:38)
[2023-01-24 16:00] VITALS: BP 121/58
[2023-01-24 22:00] VITALS: BP 120/54
[2023-01-25] MEDS: guaiFENesin-DM 100/10mg/5ml SYR PO PRN ×3 (01:29→22:38)
[2023-01-25 01:45] VITALS: BP 121/58
[2023-01-25 05:00] VITALS: BP 137/56
[2023-01-25] MEDS: MORPHINE SULFATE INJ 2 MG/ml SYRG IV PRN (05:39)
[2023-01-25] MEDS: ACCU-CHEK COMFORT CURVE STRIP VI SCH ×4 (06:38→22:32)
[2023-01-25] MEDS: InsuLIN REG 1unit/0.01ml Soln (100units/ml) SC SCH ×4 (06:41→22:43)
[2023-01-25 08:30] VITALS: BP 111/55
[2023-01-25] MEDS: ALBUTEROL SULF 2.5 MG/0.5ML(0.5%) NEB SOLN NEB PRN ×2 (10:18→19:44)
[2023-01-25] MEDS: IPRATROPIUM BROM 0.5 MG/2.5ML INH SOL NEB PRN ×2 (10:19→19:44)
[2023-01-25] MEDS: cefTRIAXone 1GM/50ML D5W 50 ML IV SCH (11:03)
[2023-01-25] MEDS: CHOLECALCIFEROL (VITD3) 2,000 UNIT CAP/TAB PO SCH (11:07)
[2023-01-25] MEDS: MEGESTROL ACETATE 20 MG TAB PO SCH ×2 (11:07→22:26)
[2023-01-25] MEDS: ATORVASTATIN 20 MG TAB PO SCH (11:08)
[2023-01-25] MEDS: AMIODARONE HCL 200 MG TAB PO SCH (11:43)
[2023-01-25] MEDS: TORSEMIDE 20 MG TAB PO SCH ×2 (11:43→22:26)
[2023-01-25] MEDS: amLODIPine BESYLATE 5 MG TAB PO SCH (11:44)
[2023-01-25 12:25] VITALS: BP 132/54
[2023-01-25 12:51] LABS: Hepatitis A Ab IgM Negative; Hepatitis B Core IgM Negative; Hepatitis C Antibody Negative (Negative)
[2023-01-25 16:35] VITALS: BP 112/56
[2023-01-25 22:00] VITALS: BP 124/56
[2023-01-26 05:00] VITALS: BP 109/54
[2023-01-26] MEDS: ACCU-CHEK COMFORT CURVE STRIP VI SCH ×4 (06:53→22:02)
[2023-01-26] MEDS: InsuLIN REG 1unit/0.01ml Soln (100units/ml) SC SCH ×4 (06:53→22:04)
[2023-01-26] MEDS ORDERED: SODIUM CHL 0.9% 1000 ML BAG XX ONE (07:00)
[2023-01-26 07:11] LABS: BUN/Creatinine Ratio 6.5 (10.0-20.0); Calcium 8.4 mg/dL (8.5-10.1); Potassium 4.6 mmol/L (3.5-5.1)
[2023-01-26 08:25] VITALS: BP 153/53
[2023-01-26] MEDS: CHOLECALCIFEROL (VITD3) 2,000 UNIT CAP/TAB PO SCH (08:52)
[2023-01-26] MEDS: guaiFENesin-DM 100/10mg/5ml SYR PO PRN ×3 (08:53→20:00)
[2023-01-26] MEDS: cefTRIAXone 1GM/50ML D5W 50 ML IV SCH (08:53)
[2023-01-26] MEDS: amLODIPine BESYLATE 5 MG TAB PO SCH (08:54)
[2023-01-26] MEDS: TORSEMIDE 20 MG TAB PO SCH ×2 (08:54→21:59)
[2023-01-26] MEDS: MEGESTROL ACETATE 20 MG TAB PO SCH ×2 (08:55→21:58)
[2023-01-26] MEDS: AMIODARONE HCL 200 MG TAB PO SCH (08:55)
[2023-01-26] MEDS: ATORVASTATIN 20 MG TAB PO SCH (08:55)
[2023-01-26 12:25] VITALS: BP 118/59
[2023-01-26 16:00] VITALS: BP 125/62
[2023-01-26 22:00] VITALS: BP 126/55
[2023-01-27] MEDS: guaiFENesin-DM 100/10mg/5ml SYR PO PRN ×4 (00:09→15:28)
[2023-01-27 05:00] VITALS: BP 117/60
[2023-01-27] MEDS: ACCU-CHEK COMFORT CURVE STRIP VI SCH ×4 (06:35→21:17)
[2023-01-27] MEDS: InsuLIN REG 1unit/0.01ml Soln (100units/ml) SC SCH ×4 (06:36→21:23)
[2023-01-27] MEDS: ATORVASTATIN 20 MG TAB PO SCH (08:28)
[2023-01-27] MEDS: cefTRIAXone 1GM/50ML D5W 50 ML IV SCH (08:28)
[2023-01-27] MEDS: TORSEMIDE 20 MG TAB PO SCH ×2 (08:29→21:15)
[2023-01-27] MEDS: AMIODARONE HCL 200 MG TAB PO SCH (08:29)
[2023-01-27] MEDS: CHOLECALCIFEROL (VITD3) 2,000 UNIT CAP/TAB PO SCH (08:29)
[2023-01-27] MEDS: MEGESTROL ACETATE 20 MG TAB PO SCH ×2 (08:29→21:15)
[2023-01-27] MEDS: amLODIPine BESYLATE 5 MG TAB PO SCH (08:30)
[2023-01-27 09:00] VITALS: BP 115/57
[2023-01-27 13:00] VITALS: BP 118/60
[2023-01-27 17:00] VITALS: BP 125/63
[2023-01-27 22:00] VITALS: BP 117/74
[2023-01-28 05:00] VITALS: BP 133/70
[2023-01-28] MEDS: InsuLIN REG 1unit/0.01ml Soln (100units/ml) SC SCH ×3 (06:38→18:28)
[2023-01-28] MEDS: ACCU-CHEK COMFORT CURVE STRIP VI SCH ×3 (06:38→18:29)
[2023-01-28] MEDS ORDERED: SODIUM CHL 0.9% 1000 ML BAG XX ONE (07:00)
[2023-01-28 09:00] VITALS: BP 121/64
[2023-01-28] MEDS: cefTRIAXone 1GM/50ML D5W 50 ML IV SCH (11:34)
[2023-01-28] MEDS: AMIODARONE HCL 200 MG TAB PO SCH (11:36)
[2023-01-28] MEDS: MEGESTROL ACETATE 20 MG TAB PO SCH (11:37)
[2023-01-28] MEDS: amLODIPine BESYLATE 5 MG TAB PO SCH (11:37)
[2023-01-28] MEDS: CHOLECALCIFEROL (VITD3) 2,000 UNIT CAP/TAB PO SCH (11:37)
[2023-01-28] MEDS: ATORVASTATIN 20 MG TAB PO SCH (11:37)
[2023-01-28 11:42] LABS: Albumin 2.5 g/dL (3.4-5.0); Potassium 4.2 mmol/L (3.5-5.1)
[2023-01-28 11:45] LABS: BUN/Creatinine Ratio 6.7 (10.0-20.0); Bilirubin, Total 0.7 mg/dL (0.2-1.0); Total Protein 6.4 g/dL (6.4-8.2)
[2023-01-28 11:49] LABS: Basophils # (auto) 0.1 10 ^3/uL (0-0.2); Basophils % (auto) 0.8 % (0.0-2.0); Eosinophils # (auto) 0 10 ^3/uL (0-0.8); Eosinophils % (auto) 0.3 % (0.0-7.0); Hematocrit 30.5 % (41.0-53.0); Hemoglobin 10.2 g/dL (13.5-17.5); Lymphocytes # (auto) 0.6 10 ^3/uL (0.4-5.4); Lymphocytes % (auto) 7.3 % (10.0-50.0); Mean Corpuscular Hemoglobin 32.9 pg (28.0-32.0); Mean Corpuscular Hgb Conc. 33.3 g/dL (32.0-36.0); Mean Corpuscular Volume 98.6 fL (80.0-100.0); Monocytes # (auto) 0.5 10 ^3/uL (0-1.3); Monocytes % (auto) 6.4 % (0.0-12.0); Neutrophils # (auto) 6.8 10 ^3/uL (1.6-8.6); Neutrophils % (auto) 85.2 % (37.0-80.0); Nucleated Red Blood Cells % 0.1 %; Red Blood Cells 3.09 10^6/uL (4.5-5.90); Red Cell Distribution Width 15.9 % (11.8-14.3)
[2023-01-28 13:00] VITALS: BP 113/68
[2023-01-28 17:00] VITALS: BP 121/54
[2023-01-28] MEDS ORDERED: EPOETIN ALFA-EPBX 10,000 UNIT/1ML VIAL SC ONE (21:00)
== END 2023-01-28 18:22 | DRG 350 ==
LOC: SUR 06:17 → CENTRAL 10:00 → TELE-CENTR 01-22 07:11
PROVIDERS: ADMIT Surgery; ATTEND Internal Medicine Cardiovascular Disease
PROC: 0YQ60ZZ Repair Left Inguinal Region, Open Approach (ICD-10-PCS; principal; 2023-01-21 07:33)
PROC: 5A1D70Z Performance of Urinary Filtration, Intermittent, Less than 6 Hours Per Day (ICD-10-PCS; 2023-01-22)
PROC: 5A1D70Z Performance of Urinary Filtration, Intermittent, Less than 6 Hours Per Day (ICD-10-PCS; 2023-01-24)
PROC: 5A1D70Z Performance of Urinary Filtration, Intermittent, Less than 6 Hours Per Day (ICD-10-PCS; 2023-01-26)
PROC: 5A1D70Z Performance of Urinary Filtration, Intermittent, Less than 6 Hours Per Day (ICD-10-PCS; 2023-01-28)
DX: K40.90 Unilateral inguinal hernia, without obstruction or gangrene, not specified as recurrent (principal); I50.31 Acute diastolic (congestive) heart failure; N18.6 End stage renal disease; D62 Acute posthemorrhagic anemia; I13.2 Hypertensive heart and chronic kidney disease with heart failure and with stage 5 chronic kidney disease, or end stage renal disease; E87.1 Hypo-osmolality and hyponatremia; E03.9 Hypothyroidism, unspecified; E11.22 Type 2 diabetes mellitus with diabetic chronic kidney disease; I25.10 Atherosclerotic heart disease of native coronary artery without angina pectoris; I48.91 Unspecified atrial fibrillation; J44.9 Chronic obstructive pulmonary disease, unspecified; Z20.822 Contact with and (suspected) exposure to COVID-19; I27.81 Cor pulmonale (chronic); R31.0 Gross hematuria; E87.5 Hyperkalemia; R33.9 Retention of urine, unspecified; E87.6 Hypokalemia; G62.9 Polyneuropathy, unspecified; G89.29 Other chronic pain; Z87.891 Personal history of nicotine dependence; Z95.5 Presence of coronary angioplasty implant and graft; Z99.2 Dependence on renal dialysis; I25.2 Old myocardial infarction; Z82.49 Family history of ischemic heart disease and other diseases of the circulatory system
CPT/HCPCS: 36415; 36600; 70450; 80048; 80053; 80074; 81001; 82805; 82962; 83735; 84100; 85014; 85018; 85025; 85610; 85730; 86850; 86900; 86901; 87086; 87088; 87186; 87426; 88302; 90935; 94640; 97110; 97116; 97163; 97530; C1781; C9113; G0378; J0690; J0696; J1642; J1815; J2250; J2405; J2704; J3490; P9047

== ENCOUNTER 2023-02-22 09:48 | Inpatient (IN) | payer BC, MEDICARE ==
[~2023-02-22] VITALS: Ht 177.8 cm; Wt 69.1 kg
[~2023-02-22 09:48] MED LIST changes: -AMLO-496 PO; +AMLO1TAB23 PO; +MEGE20TA3 PO; -MEGE20TA5 PO; +ROSU10TA64 PO; -ROSU1TAB13 PO
[2023-02-22 10:17] LABS: Basophils # (auto) 0.1 10 ^3/uL (0-0.2); Basophils % (auto) 0.7 % (0.0-2.0); Eosinophils # (auto) 0 10 ^3/uL (0-0.8); Eosinophils % (auto) 0.2 % (0.0-7.0); Hematocrit 28.7 % (41.0-53.0); Hemoglobin 9.5 g/dL (13.5-17.5); Lymphocytes # (auto) 0.9 10 ^3/uL (0.4-5.4); Lymphocytes % (auto) 8.8 % (10.0-50.0); Mean Corpuscular Hemoglobin 32.8 pg (28.0-32.0); Mean Corpuscular Volume 99.5 fL (80.0-100.0); Monocytes # (auto) 0.6 10 ^3/uL (0-1.3); Monocytes % (auto) 5.5 % (0.0-12.0); Neutrophils # (auto) 8.8 10 ^3/uL (1.6-8.6); Neutrophils % (auto) 84.8 % (37.0-80.0); Nucleated Red Blood Cells % 0.2 %; Red Blood Cells 2.89 10^6/uL (4.5-5.90); Red Cell Distribution Width 18.3 % (11.8-14.3); White Blood Cell 10.4 10^3/uL (4.4-10.8)
[2023-02-22 10:43] LABS: Calcium 7.4 mg/dL (8.5-10.1)
[2023-02-22 10:46] LABS: BUN/Creatinine Ratio 9.5 (10.0-20.0); Bilirubin, Total 0.9 mg/dL (0.2-1.0); Total Protein 6.4 g/dL (6.4-8.2)
[2023-02-22 10:46] LABS: Urine Bacteria FEW /hpf (None Seen); Urine Blood 3+ /uL (Negative); Urine Mucus FEW (None Seen); Urine Specific Gravity 1.017 (1.001-1.035); Urine WBC 306 /hpf (0 - 3)
[2023-02-22] MEDS ORDERED: CALCIUM GLUC 1,000mg/50ml-NS 50 ML IV ONE (11:15)
[2023-02-22] MEDS ORDERED: DEXTROSE (50%) 50ML SYRG IV ONE (11:15)
[2023-02-22] MEDS ORDERED: FUROSEMIDE 20 MG/2 ML VIAL IV ONE (11:15)
[2023-02-22] MEDS ORDERED: ALBUTEROL SULF 2.5 MG/0.5ML(0.5%) NEB SOLN NEB ONE (11:15)
[2023-02-22] MEDS ORDERED: SODIUM ZIRCONIUM CYCL 10 GM PAK PO ONE (11:15)
[2023-02-22] MEDS ORDERED: SODIUM BICARBONATE 8.4% INJ 50ML SYRINGE IV ONE (11:15)
[2023-02-22] MEDS ORDERED: InsuLIN REG 1unit/0.01ml Soln (100units/ml) IV ONE (11:15)
[2023-02-22] MEDS ORDERED: SODIUM CHL 0.9% 1000 ML BAG XX ONE (12:30)
[2023-02-22] MEDS ORDERED: NITROGLYCERIN 0.4 MG SL TAB SL PRN (14:45)
[2023-02-22] MEDS ORDERED: MORPHINE SULFATE INJ 2 MG/ml SYRG IV PRN (14:45)
[2023-02-22] MEDS ORDERED: cloNIDine HCL 0.1 MG TAB PO PRN (15:00)
[2023-02-22] MEDS: ACETAMINOPHEN 325 MG TAB PO PRN ×2 (16:42→22:23)
[2023-02-22] MEDS ORDERED: EPOETIN ALFA-EPBX 10,000 UNIT/1ML VIAL SC ONE (21:00)
[2023-02-22] MEDS: MEGESTROL ACETATE 20 MG TAB PO SCH (22:22)
[2023-02-22] MEDS: TORSEMIDE 20 MG TAB PO SCH (22:23)
[2023-02-22] MEDS: HEPARIN SODIUM (PORCINE) 5000 UNITS/ML 1ML VIAL SC SCH (22:39)
[2023-02-22 23:04] VITALS: BP 102/72
[2023-02-23] MEDS ORDERED: ROSU20TA14 PO (02:24)
[2023-02-23] MEDS ORDERED: MULT-688 PO (02:25)
[2023-02-23 05:00] VITALS: BP 104/51
[2023-02-23 06:11] LABS: Basophils # (auto) 0 10 ^3/uL (0-0.2); Eosinophils # (auto) 0 10 ^3/uL (0-0.8); Eosinophils % (auto) 0.2 % (0.0-7.0); Hemoglobin 7.7 g/dL (13.5-17.5); Mean Corpuscular Hgb Conc. 35.2 g/dL (32.0-36.0); Monocytes # (auto) 0.5 10 ^3/uL (0-1.3); Monocytes % (auto) 7.3 % (0.0-12.0); Nucleated Red Blood Cells % 0.2 %
[2023-02-23 06:14] LABS: Basophils % (auto) 0.3 % (0.0-2.0); Lymphocytes # (auto) 0.8 10 ^3/uL (0.4-5.4); Lymphocytes % (auto) 12.7 % (10.0-50.0); Mean Corpuscular Volume 96.6 fL (80.0-100.0); Neutrophils # (auto) 5.2 10 ^3/uL (1.6-8.6); Neutrophils % (auto) 79.5 % (37.0-80.0); Red Blood Cells 2.28 10^6/uL (4.5-5.90); Red Cell Distribution Width 17.7 % (11.8-14.3); White Blood Cell 6.5 10^3/uL (4.4-10.8)
[2023-02-23 06:30] LABS: Potassium 4.3 mmol/L (3.5-5.1)
[2023-02-23 06:47] LABS: Albumin 2.6 g/dL (3.4-5.0); BUN/Creatinine Ratio 7.6 (10.0-20.0); Bilirubin, Total 0.9 mg/dL (0.2-1.0); Calcium 7.4 mg/dL (8.5-10.1); Total Protein 5.9 g/dL (6.4-8.2)
[2023-02-23] MEDS ORDERED: SODIUM CHL 0.9% 1000 ML BAG XX ONE (07:00)
[2023-02-23 09:00] VITALS: BP 108/69
[2023-02-23] MEDS: amLODIPine BESYLATE 5 MG TAB PO SCH (10:00)
[2023-02-23] MEDS: TORSEMIDE 20 MG TAB PO SCH ×2 (10:00→21:38)
[2023-02-23] MEDS: HEPARIN SODIUM (PORCINE) 5000 UNITS/ML 1ML VIAL SC SCH ×2 (10:00→21:40)
[2023-02-23] MEDS: ACETAMINOPHEN 325 MG TAB PO PRN (10:14)
[2023-02-23] MEDS: AMIODARONE HCL 200 MG TAB PO SCH (10:15)
[2023-02-23] MEDS: ASCORBIC ACID 500 MG TAB PO SCH (10:15)
[2023-02-23] MEDS: CHOLECALCIFEROL (VITD3) 2,000 UNIT CAP/TAB PO SCH (10:15)
[2023-02-23] MEDS: B-COMPLEX W/ C & FOLIC ACID(NEPHROVITE TAB) PO SCH (10:16)
[2023-02-23] MEDS: MEGESTROL ACETATE 20 MG TAB PO SCH ×2 (10:16→21:39)
[2023-02-23] MEDS: ZINC SULFATE 220mg CAP or TAB PO SCH (10:16)
[2023-02-23] MEDS: ATORVASTATIN 20 MG TAB PO SCH (10:16)
[2023-02-23 13:00] VITALS: BP 108/52
[2023-02-23 13:26] LABS: Hepatitis A Ab IgM Negative
[2023-02-23 13:29] LABS: Hepatitis B Core IgM Negative; Hepatitis C Antibody Negative (Negative)
[2023-02-23 17:00] VITALS: BP 100/45
[2023-02-23] MEDS ORDERED: EPOETIN ALFA-EPBX 4,000 UNIT/ML VIAL SC ONE (21:00)
[2023-02-23 22:00] VITALS: BP 115/56
[2023-02-24] VITALS (7 sets, daily range): BP systolic 112–142; BP diastolic 53–71
[2023-02-24] MEDS ORDERED: LIDOCAINE 2%HCL (LOCAL ANESTH.) INJ 10ml MDV ONE (10:05)
[2023-02-24] MEDS: CHOLECALCIFEROL (VITD3) 2,000 UNIT CAP/TAB PO SCH (11:56)
[2023-02-24] MEDS: ZINC SULFATE 220mg CAP or TAB PO SCH (11:57)
[2023-02-24] MEDS: MEGESTROL ACETATE 20 MG TAB PO SCH ×2 (11:57→22:09)
[2023-02-24] MEDS: ASCORBIC ACID 500 MG TAB PO SCH (11:57)
[2023-02-24] MEDS: ATORVASTATIN 20 MG TAB PO SCH (11:57)
[2023-02-24] MEDS: amLODIPine BESYLATE 5 MG TAB PO SCH (11:58)
[2023-02-24] MEDS: B-COMPLEX W/ C & FOLIC ACID(NEPHROVITE TAB) PO SCH (11:58)
[2023-02-24] MEDS: AMIODARONE HCL 200 MG TAB PO SCH (11:58)
[2023-02-24] MEDS: TORSEMIDE 20 MG TAB PO SCH ×2 (11:59→22:11)
[2023-02-24] MEDS: HEPARIN SODIUM (PORCINE) 5000 UNITS/ML 1ML VIAL SC SCH ×2 (12:00→22:13)
[2023-02-25 05:00] VITALS: BP 118/60
[2023-02-25 08:30] VITALS: BP 113/53
[2023-02-25 08:44] VITALS: BP 113/53
[2023-02-25] MEDS: MEGESTROL ACETATE 20 MG TAB PO SCH ×2 (09:13→22:55)
[2023-02-25] MEDS: ASCORBIC ACID 500 MG TAB PO SCH (09:13)
[2023-02-25] MEDS: ZINC SULFATE 220mg CAP or TAB PO SCH (09:14)
[2023-02-25] MEDS: B-COMPLEX W/ C & FOLIC ACID(NEPHROVITE TAB) PO SCH (09:14)
[2023-02-25] MEDS: CHOLECALCIFEROL (VITD3) 2,000 UNIT CAP/TAB PO SCH (09:14)
[2023-02-25] MEDS: ATORVASTATIN 20 MG TAB PO SCH (09:15)
[2023-02-25] MEDS: AMIODARONE HCL 200 MG TAB PO SCH (09:15)
[2023-02-25] MEDS: TORSEMIDE 20 MG TAB PO SCH ×2 (09:16→22:55)
[2023-02-25] MEDS: amLODIPine BESYLATE 5 MG TAB PO SCH (09:16)
[2023-02-25] MEDS: HEPARIN SODIUM (PORCINE) 5000 UNITS/ML 1ML VIAL SC SCH ×2 (09:17→22:54)
[2023-02-25 13:00] VITALS: BP 128/65
[2023-02-25] MEDS: cefTRIAXone 1GM/50ML D5W 50 ML IV SCH (15:43)
[2023-02-25 16:55] LABS: Urine Bacteria MOD /hpf (None Seen); Urine Blood 1+ /uL (Negative); Urine Mucus FEW (None Seen); Urine WBC 2011 /hpf (0 - 3); Urine WBC Clumps PRESENT /hpf (None Seen)
[2023-02-25 17:07] LABS: Urine Specific Gravity 1.015 (1.001-1.035)
[2023-02-25 17:08] VITALS: BP 109/53
[2023-02-25 22:00] VITALS: BP 101/49
[2023-02-26] VITALS (12 sets, daily range): BP systolic 108–117; BP diastolic 48–67
[2023-02-26] MEDS: FAMOTIDINE 20 MG TAB PO SCH ×3 (00:59→21:19)
[2023-02-26] MEDS: ACETAMINOPHEN 325 MG TAB PO PRN ×3 (01:56→21:36)
[2023-02-26] MEDS ORDERED: SODIUM CHL 0.9% 1000 ML BAG XX ONE (07:00)
[2023-02-26] MEDS: amLODIPine BESYLATE 5 MG TAB PO SCH ×2 (10:00→11:43)
[2023-02-26] MEDS: HEPARIN SODIUM (PORCINE) 5000 UNITS/ML 1ML VIAL SC SCH ×2 (10:00→21:16)
[2023-02-26] MEDS: MEGESTROL ACETATE 20 MG TAB PO SCH ×3 (10:00→21:19)
[2023-02-26] MEDS: cefTRIAXone 1GM/50ML D5W 50 ML IV SCH (11:35)
[2023-02-26] MEDS: B-COMPLEX W/ C & FOLIC ACID(NEPHROVITE TAB) PO SCH (11:41)
[2023-02-26] MEDS: ATORVASTATIN 20 MG TAB PO SCH (11:42)
[2023-02-26] MEDS: TORSEMIDE 20 MG TAB PO SCH ×2 (11:42→21:20)
[2023-02-26] MEDS: AMIODARONE HCL 200 MG TAB PO SCH (11:42)
[2023-02-26] MEDS: ZINC SULFATE 220mg CAP or TAB PO SCH (11:42)
[2023-02-26] MEDS: CHOLECALCIFEROL (VITD3) 2,000 UNIT CAP/TAB PO SCH (11:43)
[2023-02-26] MEDS: ASCORBIC ACID 500 MG TAB PO SCH (11:43)
[2023-02-26 13:46] LABS: Basophils # (auto) 0 10 ^3/uL (0-0.2); Eosinophils # (auto) 0 10 ^3/uL (0-0.8)
[2023-02-26 13:47] LABS: Basophils % (auto) 0.4 % (0.0-2.0); Eosinophils % (auto) 0.5 % (0.0-7.0); Hematocrit 26.2 % (41.0-53.0); Hemoglobin 8.4 g/dL (13.5-17.5); Lymphocytes # (auto) 0.9 10 ^3/uL (0.4-5.4); Lymphocytes % (auto) 12.7 % (10.0-50.0); Mean Corpuscular Hemoglobin 33.2 pg (28.0-32.0); Mean Corpuscular Hgb Conc. 32.1 g/dL (32.0-36.0); Mean Corpuscular Volume 103.4 fL (80.0-100.0); Monocytes # (auto) 0.6 10 ^3/uL (0-1.3); Monocytes % (auto) 7.7 % (0.0-12.0); Neutrophils # (auto) 5.8 10 ^3/uL (1.6-8.6); Neutrophils % (auto) 78.7 % (37.0-80.0); Nucleated Red Blood Cells % 0.2 %; Red Blood Cells 2.53 10^6/uL (4.5-5.90); Red Cell Distribution Width 18.8 % (11.8-14.3); White Blood Cell 7.4 10^3/uL (4.4-10.8)
[2023-02-26 14:05] LABS: Albumin 2.9 g/dL (3.4-5.0); Calcium 7.7 mg/dL (8.5-10.1); Potassium 4.4 mmol/L (3.5-5.1)
[2023-02-26 14:08] LABS: BUN/Creatinine Ratio 8.6 (10.0-20.0); Bilirubin, Total 0.6 mg/dL (0.2-1.0); Total Protein 6.3 g/dL (6.4-8.2)
[2023-02-26] MEDS ORDERED: EPOETIN ALFA-EPBX 10,000 UNIT/1ML VIAL SC ONE (21:00)
[2023-02-27] VITALS (23 sets, daily range): BP systolic 97–144; BP diastolic 40–71
[2023-02-27] MEDS: ACETAMINOPHEN 325 MG TAB PO PRN (04:03)
[2023-02-27] MEDS: cefTRIAXone 1GM/50ML D5W 50 ML IV SCH (09:00)
[2023-02-27] MEDS ORDERED: SODIUM CHL 0.9% 1000 ML BAG XX ONE (09:00)
[2023-02-27 09:34] LABS: Basophils # (auto) 0 10 ^3/uL (0-0.2); Eosinophils # (auto) 0 10 ^3/uL (0-0.8); Eosinophils % (auto) 0.2 % (0.0-7.0)
[2023-02-27 09:36] LABS: Basophils % (auto) 0.5 % (0.0-2.0); Hematocrit 21.8 % (41.0-53.0); Hemoglobin 7.5 g/dL (13.5-17.5); Lymphocytes # (auto) 0.9 10 ^3/uL (0.4-5.4); Lymphocytes % (auto) 11.9 % (10.0-50.0); Mean Corpuscular Hemoglobin 32.4 pg (28.0-32.0); Mean Corpuscular Hgb Conc. 34.5 g/dL (32.0-36.0); Mean Corpuscular Volume 93.7 fL (80.0-100.0); Monocytes # (auto) 0.6 10 ^3/uL (0-1.3); Monocytes % (auto) 8.3 % (0.0-12.0); Neutrophils # (auto) 5.8 10 ^3/uL (1.6-8.6); Neutrophils % (auto) 79.1 % (37.0-80.0); Nucleated Red Blood Cells % 0.1 %; Red Blood Cells 2.33 10^6/uL (4.5-5.90); Red Cell Distribution Width 18.5 % (11.8-14.3); White Blood Cell 7.3 10^3/uL (4.4-10.8)
[2023-02-27 09:50] LABS: INR 1.16 (0.9-1.15)
[2023-02-27 09:56] LABS: Potassium 3.8 mmol/L (3.5-5.1)
[2023-02-27 10:00] LABS: BUN/Creatinine Ratio 9.3 (10.0-20.0); Bilirubin, Total 0.9 mg/dL (0.2-1.0); Total Protein 4.5 g/dL (6.4-8.2)
[2023-02-27] MEDS: CHOLECALCIFEROL (VITD3) 2,000 UNIT CAP/TAB PO SCH (10:00)
[2023-02-27] MEDS: ATORVASTATIN 20 MG TAB PO SCH (10:00)
[2023-02-27] MEDS: ZINC SULFATE 220mg CAP or TAB PO SCH (10:00)
[2023-02-27] MEDS: amLODIPine BESYLATE 5 MG TAB PO SCH (10:00)
[2023-02-27] MEDS: MEGESTROL ACETATE 20 MG TAB PO SCH ×2 (10:00→23:24)
[2023-02-27] MEDS: TORSEMIDE 20 MG TAB PO SCH ×2 (10:00→22:00)
[2023-02-27] MEDS: FAMOTIDINE 20 MG TAB PO SCH ×2 (10:00→23:23)
[2023-02-27] MEDS: HEPARIN SODIUM (PORCINE) 5000 UNITS/ML 1ML VIAL SC SCH ×2 (10:00→23:31)
[2023-02-27] MEDS: B-COMPLEX W/ C & FOLIC ACID(NEPHROVITE TAB) PO SCH (10:00)
[2023-02-27] MEDS: ASCORBIC ACID 500 MG TAB PO SCH (10:00)
[2023-02-27] MEDS: AMIODARONE HCL 200 MG TAB PO SCH (10:00)
[2023-02-27 20:10] LABS: Hematocrit 30.7 % (41.0-53.0); Hemoglobin 10.4 g/dL (13.5-17.5); Mean Corpuscular Hemoglobin 31.1 pg (28.0-32.0); Mean Corpuscular Volume 91.5 fL (80.0-100.0); Red Blood Cells 3.35 10^6/uL (4.5-5.90); Red Cell Distribution Width 17.5 % (11.8-14.3); White Blood Cell 8.2 10^3/uL (4.4-10.8)
[2023-02-27 20:32] LABS: Band Neutrophils % (manual) 0; Basophils % (manual) 0 (0.0-2.0); Blast Cells 0; Metamyelocytes % 0; Myelocytes % 0; Promyelocytes % 0; Reactive Lymphocytes 0
[2023-02-27 20:58] LABS: Eosinophils % (manual) 1 (0-7); Lymphocytes % (manual) 11 (10.0-50.0); Monocytes % (manual) 5 (0-12)
[2023-02-27] MEDS ORDERED: EPOETIN ALFA-EPBX 10,000 UNIT/1ML VIAL SC ONE (21:00)
[2023-02-28] VITALS (8 sets, daily range): BP systolic 98–124; BP diastolic 47–55
[2023-02-28] MEDS: cefTRIAXone 1GM/50ML D5W 50 ML IV SCH (08:37)
[2023-02-28] MEDS: FAMOTIDINE 20 MG TAB PO SCH ×2 (09:32→21:53)
[2023-02-28] MEDS: AMIODARONE HCL 200 MG TAB PO SCH (09:33)
[2023-02-28] MEDS: TORSEMIDE 20 MG TAB PO SCH ×2 (09:33→21:54)
[2023-02-28] MEDS: amLODIPine BESYLATE 5 MG TAB PO SCH (09:34)
[2023-02-28] MEDS: ZINC SULFATE 220mg CAP or TAB PO SCH (09:34)
[2023-02-28] MEDS: ASCORBIC ACID 500 MG TAB PO SCH (09:34)
[2023-02-28] MEDS: B-COMPLEX W/ C & FOLIC ACID(NEPHROVITE TAB) PO SCH (09:35)
[2023-02-28] MEDS: CHOLECALCIFEROL (VITD3) 2,000 UNIT CAP/TAB PO SCH (09:36)
[2023-02-28] MEDS: HEPARIN SODIUM (PORCINE) 5000 UNITS/ML 1ML VIAL SC SCH ×2 (09:36→21:59)
[2023-02-28] MEDS: ATORVASTATIN 20 MG TAB PO SCH (11:14)
[2023-02-28] MEDS: MEGESTROL ACETATE 20 MG TAB PO SCH ×2 (11:14→21:53)
[2023-03-01 05:00] VITALS: BP 111/75
[2023-03-01 08:00] VITALS: BP 130/59
[2023-03-01] MEDS: cefTRIAXone 1GM/50ML D5W 50 ML IV SCH (09:20)
[2023-03-01] MEDS: B-COMPLEX W/ C & FOLIC ACID(NEPHROVITE TAB) PO SCH (09:21)
[2023-03-01] MEDS: TORSEMIDE 20 MG TAB PO SCH ×2 (09:21→21:42)
[2023-03-01] MEDS: MEGESTROL ACETATE 20 MG TAB PO SCH ×2 (09:21→21:35)
[2023-03-01] MEDS: FAMOTIDINE 20 MG TAB PO SCH ×2 (09:23→21:36)
[2023-03-01] MEDS: amLODIPine BESYLATE 5 MG TAB PO SCH (09:23)
[2023-03-01] MEDS: AMIODARONE HCL 200 MG TAB PO SCH (09:24)
[2023-03-01] MEDS: ATORVASTATIN 20 MG TAB PO SCH (09:24)
[2023-03-01] MEDS: ASCORBIC ACID 500 MG TAB PO SCH (09:24)
[2023-03-01] MEDS: CHOLECALCIFEROL (VITD3) 2,000 UNIT CAP/TAB PO SCH (09:24)
[2023-03-01] MEDS: ZINC SULFATE 220mg CAP or TAB PO SCH (09:25)
[2023-03-01] MEDS: HEPARIN SODIUM (PORCINE) 5000 UNITS/ML 1ML VIAL SC SCH ×2 (09:38→21:47)
[2023-03-01 12:00] VITALS: BP 126/75
[2023-03-01 16:00] VITALS: BP 116/52
[2023-03-01 22:00] VITALS: BP 136/56
[2023-03-02 05:00] VITALS: BP 127/54
[2023-03-02 08:00] VITALS: BP 120/65
[2023-03-02] MEDS: cefTRIAXone 1GM/50ML D5W 50 ML IV SCH (09:00)
[2023-03-02] MEDS: HEPARIN SODIUM (PORCINE) 5000 UNITS/ML 1ML VIAL SC SCH (10:00)
[2023-03-02] MEDS: amLODIPine BESYLATE 5 MG TAB PO SCH (10:00)
[2023-03-02] MEDS: TORSEMIDE 20 MG TAB PO SCH (10:00)
[2023-03-02] MEDS: MEGESTROL ACETATE 20 MG TAB PO SCH (10:00)
[2023-03-02] MEDS: FAMOTIDINE 20 MG TAB PO SCH (10:00)
[2023-03-02] MEDS: ATORVASTATIN 20 MG TAB PO SCH (10:00)
[2023-03-02] MEDS: AMIODARONE HCL 200 MG TAB PO SCH (10:00)
[2023-03-02 12:00] VITALS: BP 132/62
[2023-03-02 17:53] VITALS: BP 161/61
[2023-03-02 18:50] VITALS: BP 134/67
[2023-03-02] MEDS: ASCORBIC ACID 500 MG TAB PO SCH (19:43)
[2023-03-02] MEDS: ZINC SULFATE 220mg CAP or TAB PO SCH (19:43)
[2023-03-02] MEDS: B-COMPLEX W/ C & FOLIC ACID(NEPHROVITE TAB) PO SCH (19:43)
[2023-03-02] MEDS: CHOLECALCIFEROL (VITD3) 2,000 UNIT CAP/TAB PO SCH (19:44)
[2023-03-02] MEDS ORDERED: EPOETIN ALFA-EPBX 10,000 UNIT/1ML VIAL SC ONE (21:00)
[2023-03-02 22:00] VITALS: BP_SYST 119; BP_SYST 123; BP_DIAS 61; BP_DIAS 62
== END 2023-03-02 22:16 | DRG 291 ==
LOC: ER 09:48 → EDBD 09:48 → TELE 14:49 → TELE-EAST 21:55 → DOU IN ICU 02-27 10:09 → TELE-CENTR 02-28 18:24
PROVIDERS: ADMIT Nurse Practitioner Family; ATTEND Internal Medicine Cardiovascular Disease
PROC: 5A1D70Z Performance of Urinary Filtration, Intermittent, Less than 6 Hours Per Day (ICD-10-PCS; principal; 2023-02-22)
PROC: 5A1D70Z Performance of Urinary Filtration, Intermittent, Less than 6 Hours Per Day (ICD-10-PCS; 2023-02-23)
PROC: 5A1D70Z Performance of Urinary Filtration, Intermittent, Less than 6 Hours Per Day (ICD-10-PCS; 2023-02-24)
PROC: 05PYX3Z Removal of Infusion Device from Upper Vein, External Approach (ICD-10-PCS; 2023-02-24)
PROC: 30233N1 Transfusion of Nonautologous Red Blood Cells into Peripheral Vein, Percutaneous Approach (ICD-10-PCS; 2023-02-26)
PROC: 5A1D70Z Performance of Urinary Filtration, Intermittent, Less than 6 Hours Per Day (ICD-10-PCS; 2023-02-27)
PROC: 5A1D70Z Performance of Urinary Filtration, Intermittent, Less than 6 Hours Per Day (ICD-10-PCS; 2023-03-02)
DX: I13.2 Hypertensive heart and chronic kidney disease with heart failure and with stage 5 chronic kidney disease, or end stage renal disease (principal); I50.43 Acute on chronic combined systolic (congestive) and diastolic (congestive) heart failure; N18.6 End stage renal disease; E87.1 Hypo-osmolality and hyponatremia; N39.0 Urinary tract infection, site not specified; I48.20 Chronic atrial fibrillation, unspecified; Z20.822 Contact with and (suspected) exposure to COVID-19; D63.8 Anemia in other chronic diseases classified elsewhere; E03.9 Hypothyroidism, unspecified; E11.22 Type 2 diabetes mellitus with diabetic chronic kidney disease; E83.51 Hypocalcemia; E87.5 Hyperkalemia; J44.9 Chronic obstructive pulmonary disease, unspecified; K40.90 Unilateral inguinal hernia, without obstruction or gangrene, not specified as recurrent; I27.81 Cor pulmonale (chronic); E78.5 Hyperlipidemia, unspecified; R33.9 Retention of urine, unspecified; R31.9 Hematuria, unspecified; E11.40 Type 2 diabetes mellitus with diabetic neuropathy, unspecified; I25.2 Old myocardial infarction; Z98.61 Coronary angioplasty status; Z99.2 Dependence on renal dialysis; Z82.49 Family history of ischemic heart disease and other diseases of the circulatory system
CPT/HCPCS: 36415; 71045; 73030; 80053; 80074; 81001; 82962; 83880; 84132; 84484; 85007; 85025; 85027; 85049; 85379; 85384; 85610; 86850; 86900; 86901; 86920; 87081; 87086; 87088; 87186; 87426; 90935; 93005; 93970; 94640; 96365; 96375; 97110; 97116; 97163; 97530; 99291; G0378; J0696; J1642; J1815; J2001

== ENCOUNTER 2023-03-20 18:20 | Inpatient (IN) | payer BC, MEDICARE ==
[~2023-03-20] VITALS: Ht 180.3 cm; Wt 60.9 kg
[~2023-03-20 18:20] MED LIST changes: +MULT-688 PO; +ROSU20TA14 PO
[2023-03-20 20:35] LABS: Basophils # (auto) 0 10 ^3/uL (0-0.2); Basophils % (auto) 0.5 % (0.0-2.0); Eosinophils # (auto) 0 10 ^3/uL (0-0.8); Eosinophils % (auto) 0.2 % (0.0-7.0); Hematocrit 29.6 % (41.0-53.0); Hemoglobin 9.8 g/dL (13.5-17.5); Lymphocytes # (auto) 0.7 10 ^3/uL (0.4-5.4); Lymphocytes % (auto) 8.8 % (10.0-50.0); Mean Corpuscular Hgb Conc. 33.1 g/dL (32.0-36.0); Mean Corpuscular Volume 96.9 fL (80.0-100.0); Monocytes # (auto) 0.7 10 ^3/uL (0-1.3); Monocytes % (auto) 8.9 % (0.0-12.0); Neutrophils # (auto) 6.3 10 ^3/uL (1.6-8.6); Neutrophils % (auto) 81.6 % (37.0-80.0); Nucleated Red Blood Cells % 0.4 %; Red Blood Cells 3.06 10^6/uL (4.5-5.90); White Blood Cell 7.7 10^3/uL (4.4-10.8)
[2023-03-20 20:37] LABS: Red Cell Distribution Width 20.1 % (11.8-14.3)
[2023-03-20 20:51] LABS: INR 1.18 (0.9-1.15); Partial Thromboplastin Time 26.1 SEC (24.5-34.5)
[2023-03-20 21:04] LABS: Albumin 2.3 g/dL (3.4-5.0); BUN/Creatinine Ratio 6.8 (10.0-20.0); Calcium 6.6 mg/dL (8.5-10.1); Potassium 4.4 mmol/L (3.5-5.1)
[2023-03-20 21:07] LABS: Bilirubin, Total 0.6 mg/dL (0.2-1.0); Total Protein 6.2 g/dL (6.4-8.2)
[2023-03-21] VITALS (7 sets, daily range): BP systolic 83–184; BP diastolic 28–47
[2023-03-21] MEDS ORDERED: DOCUSATE SOD 100 MG CAP PO PRN (01:15)
[2023-03-21] MEDS ORDERED: ONDANSETRON HCL 4 MG/2 ML VIAL IV PRN (01:15)
[2023-03-21] MEDS ORDERED: ALBUMIN 25% 100 ML IV ONE (01:15)
[2023-03-21] MEDS ORDERED: ACETAMINOPHEN 325 MG TAB PO PRN (01:15)
[2023-03-21] MEDS ORDERED: FUROSEMIDE 40 MG/4 ML VIAL IV ONE (01:15)
[2023-03-21] MEDS ORDERED: HYDROcodone-ACET 5/325MG TAB PO PRN (01:15)
[2023-03-21] MEDS ORDERED: NITROGLYCERIN 0.4 MG SL TAB SL PRN (05:00)
[2023-03-21] MEDS ORDERED: MORPHINE SULFATE INJ 2 MG/ml SYRG IV PRN (05:00)
[2023-03-21 05:56] LABS: Albumin 2.8 g/dL (3.4-5.0); Calcium 6.8 mg/dL (8.5-10.1); Potassium 4.4 mmol/L (3.5-5.1)
[2023-03-21 05:59] LABS: Basophils # (auto) 0 10 ^3/uL (0-0.2); Basophils % (auto) 0.4 % (0.0-2.0); Eosinophils # (auto) 0 10 ^3/uL (0-0.8); Eosinophils % (auto) 0.1 % (0.0-7.0); Hematocrit 28.7 % (41.0-53.0); Hemoglobin 9.4 g/dL (13.5-17.5); Lymphocytes # (auto) 0.7 10 ^3/uL (0.4-5.4); Lymphocytes % (auto) 9.4 % (10.0-50.0); Mean Corpuscular Hemoglobin 32.3 pg (28.0-32.0); Mean Corpuscular Hgb Conc. 32.8 g/dL (32.0-36.0); Mean Corpuscular Volume 98.5 fL (80.0-100.0); Monocytes # (auto) 0.6 10 ^3/uL (0-1.3); Monocytes % (auto) 7.1 % (0.0-12.0); Neutrophils # (auto) 6.6 10 ^3/uL (1.6-8.6); Nucleated Red Blood Cells % 0.2 %; Red Blood Cells 2.92 10^6/uL (4.5-5.90); Red Cell Distribution Width 19.9 % (11.8-14.3); White Blood Cell 7.9 10^3/uL (4.4-10.8)
[2023-03-21 06:01] LABS: BUN/Creatinine Ratio 7.4 (10.0-20.0); Bilirubin, Total 0.8 mg/dL (0.2-1.0); Total Protein 6.2 g/dL (6.4-8.2)
[2023-03-21] MEDS: SODIUM CHLOR 0.9% PF (SALINE LOCK) 10ML VIAL/SYR IV SCH ×3 (06:26→22:37)
[2023-03-21] MEDS: MIDODRINE HCL 10 MG TAB PO SCH ×3 (06:28→22:37)
[2023-03-21] MEDS ORDERED: LACTULOSE 20Gm/30ML SOLN PO PRN (07:30)
[2023-03-21] MEDS ORDERED: ALBUTEROL SULF 2.5 MG/0.5ML(0.5%) NEB SOLN NEB PRN (07:30)
[2023-03-21] MEDS ORDERED: DEXTROSE (50%) 50ML SYRG IV PRN (07:30)
[2023-03-21] MEDS: NITROGLYCERIN 0.2MG/HR TOPICAL PATCH TD SCH (09:08)
[2023-03-21] MEDS: ASPirin 81 mg TAB PO SCH (09:09)
[2023-03-21] MEDS: FUROSEMIDE 40 MG/4 ML VIAL IV SCH (09:09)
[2023-03-21] MEDS: cefTRIAXone 1GM/50ML D5W 50 ML IV SCH (09:09)
[2023-03-21] MEDS: AZITHROMYCIN 500MG/ 250ML 250 ML IV SCH (09:10)
[2023-03-21] MEDS ORDERED: ETOMIDATE (2MG/ML) 20ML VIAL IV ONE ×2 (10:04→10:15)
[2023-03-21] MEDS ORDERED: SUCCINYLCHOLINE CHLORIDE 20 MG/ML 10ML VIAL IV ONE ×2 (10:04→10:15)
[2023-03-21] MEDS: MIDAZOLAM DRIP 50 mg/50mL 50 ML IV SCH ×4 (10:46→23:31)
[2023-03-21] MEDS ORDERED: SODIUM BICARBONATE 8.4 % INJ 50ML VIAL IV ONE (11:00)
[2023-03-21] MEDS ORDERED: SODIUM CHL 0.9% 1000 ML BAG XX ONE (11:30)
[2023-03-21] MEDS: NOREPINEPHRINE 8 MG/250ML KIT 250 ML IV SCH (12:02)
[2023-03-21] MEDS: ACCU-CHEK COMFORT CURVE STRIP VI SCH ×3 (12:16→22:38)
[2023-03-21 13:04] LABS: Urine Bacteria MOD /hpf (None Seen); Urine Mucus FEW (None Seen); Urine WBC 1853 /hpf (0 - 3); Urine WBC Clumps PRESENT /hpf (None Seen)
[2023-03-21 13:13] LABS: Urine Specific Gravity 1.025 (1.001-1.035)
[2023-03-21 13:14] LABS: Urine Blood Trace /uL (Negative)
[2023-03-21] MEDS: fentaNYL Drip 2500mCg/250mlNS 250 ML IV SCH (13:50)
[2023-03-21] MEDS ORDERED: EPOETIN ALFA-EPBX 10,000 UNIT/1ML VIAL SC ONE (21:00)
[2023-03-21] MEDS: ATORVASTATIN 20 MG TAB PO SCH (22:37)
[2023-03-22] VITALS (88 sets, daily range): BP systolic 88–139; BP diastolic 28–58
[2023-03-22] MEDS: MIDAZOLAM DRIP 50 mg/50mL 50 ML IV SCH ×4 (03:27→17:52)
[2023-03-22 03:39] LABS: Basophils # (auto) 0.1 10 ^3/uL (0-0.2); Basophils % (auto) 1.1 % (0.0-2.0); Eosinophils # (auto) 0 10 ^3/uL (0-0.8); Eosinophils % (auto) 0.3 % (0.0-7.0); Hematocrit 29.4 % (41.0-53.0); Hemoglobin 9.7 g/dL (13.5-17.5); Mean Corpuscular Hemoglobin 31.6 pg (28.0-32.0); Mean Corpuscular Hgb Conc. 33.1 g/dL (32.0-36.0); Mean Corpuscular Volume 95.6 fL (80.0-100.0); Monocytes # (auto) 0.7 10 ^3/uL (0-1.3); Monocytes % (auto) 6.6 % (0.0-12.0); Neutrophils # (auto) 8.9 10 ^3/uL (1.6-8.6); Nucleated Red Blood Cells % 0.2 %; Red Blood Cells 3.07 10^6/uL (4.5-5.90); Red Cell Distribution Width 19.9 % (11.8-14.3); White Blood Cell 10.7 10^3/uL (4.4-10.8)
[2023-03-22 04:11] LABS: Albumin 2.6 g/dL (3.4-5.0); Calcium 7.5 mg/dL (8.5-10.1); Potassium 4.3 mmol/L (3.5-5.1)
[2023-03-22 04:14] LABS: BUN/Creatinine Ratio 6.6 (10.0-20.0); Bilirubin, Total 1.2 mg/dL (0.2-1.0); Total Protein 5.7 g/dL (6.4-8.2)
[2023-03-22] MEDS: MIDODRINE HCL 10 MG TAB PO SCH ×3 (06:24→23:00)
[2023-03-22] MEDS: SODIUM CHLOR 0.9% PF (SALINE LOCK) 10ML VIAL/SYR IV SCH ×3 (06:24→22:00)
[2023-03-22] MEDS: ACCU-CHEK COMFORT CURVE STRIP VI SCH ×4 (06:24→22:30)
[2023-03-22] MEDS: cefTRIAXone 1GM/50ML D5W 50 ML IV SCH (09:36)
[2023-03-22] MEDS: AZITHROMYCIN 500MG/ 250ML 250 ML IV SCH (10:37)
[2023-03-22] MEDS: NITROGLYCERIN 0.2MG/HR TOPICAL PATCH TD SCH (10:37)
[2023-03-22] MEDS: ASPirin 81 mg TAB PO SCH (10:41)
[2023-03-22] MEDS: FUROSEMIDE 40 MG/4 ML VIAL IV SCH (10:48)
[2023-03-22] MEDS: NOREPINEPHRINE 8 MG/250ML KIT 250 ML IV SCH (11:24)
[2023-03-22] MEDS: fentaNYL Drip 2500mCg/250mlNS 250 ML IV SCH (12:15)
[2023-03-22] MEDS: ATORVASTATIN 20 MG TAB PO SCH (23:00)
[2023-03-23] VITALS (77 sets, daily range): BP systolic 78–138; BP diastolic 44–61
[2023-03-23] MEDS ORDERED: SODIUM CHL 0.9% 1000 ML BAG XX ONE (06:00)
[2023-03-23] MEDS: MIDODRINE HCL 10 MG TAB PO SCH ×3 (06:00→22:00)
[2023-03-23] MEDS: SODIUM CHLOR 0.9% PF (SALINE LOCK) 10ML VIAL/SYR IV SCH ×3 (06:00→22:00)
[2023-03-23 06:17] LABS: Basophils # (auto) 0 10 ^3/uL (0-0.2); Basophils % (auto) 0.4 % (0.0-2.0); Eosinophils # (auto) 0 10 ^3/uL (0-0.8); Eosinophils % (auto) 0.2 % (0.0-7.0); Hematocrit 30.5 % (41.0-53.0); Hemoglobin 10.1 g/dL (13.5-17.5); Lymphocytes # (auto) 0.7 10 ^3/uL (0.4-5.4); Lymphocytes % (auto) 7.2 % (10.0-50.0); Mean Corpuscular Hemoglobin 32.1 pg (28.0-32.0); Mean Corpuscular Hgb Conc. 33.1 g/dL (32.0-36.0); Mean Corpuscular Volume 97.2 fL (80.0-100.0); Monocytes # (auto) 0.8 10 ^3/uL (0-1.3); Monocytes % (auto) 7.5 % (0.0-12.0); Neutrophils # (auto) 8.8 10 ^3/uL (1.6-8.6); Neutrophils % (auto) 84.7 % (37.0-80.0); Nucleated Red Blood Cells % 0.3 %; Red Blood Cells 3.13 10^6/uL (4.5-5.90); White Blood Cell 10.4 10^3/uL (4.4-10.8)
[2023-03-23] MEDS ORDERED: ALBUMIN 25% 100 ML IV PRN (06:30)
[2023-03-23 06:36] LABS: BUN/Creatinine Ratio 7.1 (10.0-20.0); Calcium 7.4 mg/dL (8.5-10.1); Magnesium 2.2 mg/dL (1.6-2.6); Potassium 5.1 mmol/L (3.5-5.1)
[2023-03-23] MEDS ORDERED: ALBUMIN 25% 100 ML IV ONE (06:54)
[2023-03-23] MEDS: ACCU-CHEK COMFORT CURVE STRIP VI SCH ×3 (07:00→17:58)
[2023-03-23] MEDS: MIDAZOLAM DRIP 50 mg/50mL 50 ML IV SCH ×4 (07:15→22:15)
[2023-03-23] MEDS: ASPirin 81 mg TAB PO SCH (09:40)
[2023-03-23] MEDS: cefTRIAXone 1GM/50ML D5W 50 ML IV SCH (09:40)
[2023-03-23] MEDS: FUROSEMIDE 40 MG/4 ML VIAL IV SCH (09:40)
[2023-03-23] MEDS: NOREPINEPHRINE 8 MG/250ML KIT 250 ML IV SCH ×2 (10:30→15:22)
[2023-03-23] MEDS: fentaNYL Drip 2500mCg/250mlNS 250 ML IV SCH (12:15)
[2023-03-23] MEDS: AZITHROMYCIN 500MG/ 250ML 250 ML IV SCH (12:33)
[2023-03-23] MEDS ORDERED: EPOETIN ALFA-EPBX 10,000 UNIT/1ML VIAL SC ONE (21:00)
[2023-03-23] MEDS: ATORVASTATIN 20 MG TAB PO SCH (22:00)
[2023-03-24] VITALS (101 sets, daily range): BP systolic 83–140; BP diastolic 40–55
[2023-03-24] MEDS: ACCU-CHEK COMFORT CURVE STRIP VI SCH ×5 (02:08→23:01)
[2023-03-24] MEDS: MIDAZOLAM DRIP 50 mg/50mL 50 ML IV SCH ×4 (03:15→13:15)
[2023-03-24] MEDS: SODIUM CHLOR 0.9% PF (SALINE LOCK) 10ML VIAL/SYR IV SCH ×3 (06:00→22:58)
[2023-03-24] MEDS: MIDODRINE HCL 10 MG TAB PO SCH ×3 (06:00→22:58)
[2023-03-24 07:24] LABS: Basophils # (auto) 0 10 ^3/uL (0-0.2); Basophils % (auto) 0.6 % (0.0-2.0); Eosinophils # (auto) 0 10 ^3/uL (0-0.8); Eosinophils % (auto) 0.4 % (0.0-7.0); Hematocrit 28.4 % (41.0-53.0); Hemoglobin 9.4 g/dL (13.5-17.5); Lymphocytes # (auto) 0.6 10 ^3/uL (0.4-5.4); Lymphocytes % (auto) 8.4 % (10.0-50.0); Mean Corpuscular Hemoglobin 31.8 pg (28.0-32.0); Mean Corpuscular Hgb Conc. 33.1 g/dL (32.0-36.0); Mean Corpuscular Volume 96.1 fL (80.0-100.0); Monocytes # (auto) 0.5 10 ^3/uL (0-1.3); Monocytes % (auto) 6.8 % (0.0-12.0); Neutrophils # (auto) 6.4 10 ^3/uL (1.6-8.6); Neutrophils % (auto) 83.8 % (37.0-80.0); Nucleated Red Blood Cells % 0.2 %; Red Blood Cells 2.95 10^6/uL (4.5-5.90); White Blood Cell 7.7 10^3/uL (4.4-10.8)
[2023-03-24 07:25] LABS: BUN/Creatinine Ratio 6.6 (10.0-20.0); Magnesium 2.2 mg/dL (1.6-2.6); Potassium 4.8 mmol/L (3.5-5.1)
[2023-03-24] MEDS: cefTRIAXone 1GM/50ML D5W 50 ML IV SCH (09:48)
[2023-03-24] MEDS: AZITHROMYCIN 500MG/ 250ML 250 ML IV SCH (09:49)
[2023-03-24] MEDS: ASPirin 81 mg TAB PO SCH (09:49)
[2023-03-24] MEDS: FUROSEMIDE 40 MG/4 ML VIAL IV SCH (09:49)
[2023-03-24] MEDS: fentaNYL Drip 2500mCg/250mlNS 250 ML IV SCH (12:15)
[2023-03-24] MEDS: ATORVASTATIN 20 MG TAB PO SCH (22:58)
[2023-03-25] VITALS (103 sets, daily range): BP systolic 88–130; BP diastolic 45–64
[2023-03-25 04:05] LABS: Basophils # (auto) 0 10 ^3/uL (0-0.2); Basophils % (auto) 0.4 % (0.0-2.0); Eosinophils # (auto) 0.1 10 ^3/uL (0-0.8); Eosinophils % (auto) 1.1 % (0.0-7.0); Hematocrit 38.1 % (41.0-53.0); Hemoglobin 12.7 g/dL (13.5-17.5); Lymphocytes # (auto) 0.3 10 ^3/uL (0.4-5.4); Lymphocytes % (auto) 5.7 % (10.0-50.0); Mean Corpuscular Hemoglobin 32.1 pg (28.0-32.0); Mean Corpuscular Hgb Conc. 33.3 g/dL (32.0-36.0); Mean Corpuscular Volume 96.4 fL (80.0-100.0); Monocytes # (auto) 0.2 10 ^3/uL (0-1.3); Monocytes % (auto) 3.3 % (0.0-12.0); Neutrophils # (auto) 5.3 10 ^3/uL (1.6-8.6); Neutrophils % (auto) 89.5 % (37.0-80.0); Nucleated Red Blood Cells % 0.4 %; Red Blood Cells 3.95 10^6/uL (4.5-5.90)
[2023-03-25 04:16] LABS: Albumin 2.6 g/dL (3.4-5.0)
[2023-03-25 04:19] LABS: BUN/Creatinine Ratio 6.9 (10.0-20.0); Bilirubin, Total 0.8 mg/dL (0.2-1.0); Total Protein 6.2 g/dL (6.4-8.2)
[2023-03-25] MEDS: SODIUM CHLOR 0.9% PF (SALINE LOCK) 10ML VIAL/SYR IV SCH ×3 (05:54→22:04)
[2023-03-25] MEDS: ACCU-CHEK COMFORT CURVE STRIP VI SCH (05:54)
[2023-03-25] MEDS: MIDODRINE HCL 10 MG TAB PO SCH ×3 (05:55→22:03)
[2023-03-25] MEDS ORDERED: SODIUM CHL 0.9% 1000 ML BAG XX ONE (07:30)
[2023-03-25] MEDS: cefTRIAXone 1GM/50ML D5W 50 ML IV SCH (09:36)
[2023-03-25] MEDS: FUROSEMIDE 40 MG/4 ML VIAL IV SCH (09:36)
[2023-03-25] MEDS: ASPirin 81 mg TAB PO SCH (09:37)
[2023-03-25] MEDS: NOREPINEPHRINE 8 MG/250ML KIT 250 ML IV SCH (09:37)
[2023-03-25] MEDS: AZITHROMYCIN 500MG/ 250ML 250 ML IV SCH (09:37)
[2023-03-25] MEDS ORDERED: SODIUM ZIRCONIUM CYCL 10 GM PAK PO ONE (10:00)
[2023-03-25] MEDS: DAPTOmycin 250 MG in SODIUM CHL 0.9% 50 ML IV SCH (20:13)
[2023-03-25] MEDS ORDERED: EPOETIN ALFA-EPBX 10,000 UNIT/1ML VIAL SC ONE (21:00)
[2023-03-25] MEDS: ATORVASTATIN 20 MG TAB PO SCH (22:03)
[2023-03-26] VITALS (102 sets, daily range): BP systolic 81–128; BP diastolic 40–72
[2023-03-26 03:44] LABS: Basophils # (auto) 0 10 ^3/uL (0-0.2); Basophils % (auto) 0.5 % (0.0-2.0); Eosinophils # (auto) 0 10 ^3/uL (0-0.8); Eosinophils % (auto) 0.1 % (0.0-7.0); Hematocrit 31.2 % (41.0-53.0); Hemoglobin 10.4 g/dL (13.5-17.5); Lymphocytes # (auto) 0.5 10 ^3/uL (0.4-5.4); Lymphocytes % (auto) 5.1 % (10.0-50.0); Mean Corpuscular Hemoglobin 32.1 pg (28.0-32.0); Mean Corpuscular Hgb Conc. 33.4 g/dL (32.0-36.0); Mean Corpuscular Volume 96.3 fL (80.0-100.0); Monocytes # (auto) 0.5 10 ^3/uL (0-1.3); Monocytes % (auto) 5.3 % (0.0-12.0); Nucleated Red Blood Cells % 0.1 %; Red Blood Cells 3.24 10^6/uL (4.5-5.90); Red Cell Distribution Width 19.3 % (11.8-14.3)
[2023-03-26 03:48] LABS: Calcium 8.4 mg/dL (8.5-10.1); Potassium 5.2 mmol/L (3.5-5.1)
[2023-03-26 03:52] LABS: BUN/Creatinine Ratio 6.8 (10.0-20.0)
[2023-03-26] MEDS: SODIUM CHLOR 0.9% PF (SALINE LOCK) 10ML VIAL/SYR IV SCH ×3 (05:17→21:39)
[2023-03-26] MEDS: MIDODRINE HCL 10 MG TAB PO SCH ×3 (05:17→21:38)
[2023-03-26] MEDS: MIDAZOLAM DRIP 50 mg/50mL 50 ML IV SCH ×4 (07:30→20:15)
[2023-03-26] MEDS: cefTRIAXone 1GM/50ML D5W 50 ML IV SCH (09:32)
[2023-03-26] MEDS: AZITHROMYCIN 500MG/ 250ML 250 ML IV SCH (10:29)
[2023-03-26] MEDS: PANTOPRAZOLE 40 MG/10 ML VIAL INJ IV SCH (10:29)
[2023-03-26] MEDS: ASPirin 81 mg TAB PO SCH (10:29)
[2023-03-26] MEDS: NOREPINEPHRINE 8 MG/250ML KIT 250 ML IV SCH (10:30)
[2023-03-26] MEDS ORDERED: ALBUMIN 5% 250 ML IV ONE ×2 (13:29→13:30)
[2023-03-26] MEDS ORDERED: Jevity 1.2 Cal/Fiber 1 Liter GT SCH (15:45)
[2023-03-26] MEDS: ATORVASTATIN 20 MG TAB PO SCH (21:38)
[2023-03-26] MEDS: IPRATROPIUM BROM 0.5 MG/2.5ML INH SOL NEB PRN (22:08)
[2023-03-26] MEDS: ACETYLCYSTEINE 20%(200MG/ML) SOL 4ML NEB SCH (22:08)
[2023-03-26] MEDS: ALBUTEROL SULF 2.5 MG/0.5ML(0.5%) NEB SOLN NEB PRN (22:08)
[2023-03-27] VITALS (106 sets, daily range): BP systolic 73–120; BP diastolic 43–68
[2023-03-27 03:40] LABS: Basophils # (auto) 0.1 10 ^3/uL (0-0.2); Basophils % (auto) 0.6 % (0.0-2.0); Eosinophils # (auto) 0 10 ^3/uL (0-0.8); Hematocrit 30.1 % (41.0-53.0); Hemoglobin 9.9 g/dL (13.5-17.5); Lymphocytes # (auto) 0.5 10 ^3/uL (0.4-5.4); Lymphocytes % (auto) 5.9 % (10.0-50.0); Monocytes # (auto) 0.7 10 ^3/uL (0-1.3); Monocytes % (auto) 7.6 % (0.0-12.0); Neutrophils # (auto) 7.8 10 ^3/uL (1.6-8.6); Neutrophils % (auto) 85.9 % (37.0-80.0); Nucleated Red Blood Cells % 0.1 %; Red Cell Distribution Width 19.6 % (11.8-14.3); White Blood Cell 9.1 10^3/uL (4.4-10.8)
[2023-03-27 04:23] LABS: Calcium 8.3 mg/dL (8.5-10.1)
[2023-03-27 04:32] LABS: Potassium 5.6 mmol/L (3.5-5.1)
[2023-03-27] MEDS: MIDODRINE HCL 10 MG TAB PO SCH ×3 (05:21→21:04)
[2023-03-27] MEDS: SODIUM CHLOR 0.9% PF (SALINE LOCK) 10ML VIAL/SYR IV SCH ×3 (05:21→21:04)
[2023-03-27] MEDS: IPRATROPIUM BROM 0.5 MG/2.5ML INH SOL NEB PRN ×3 (06:44→22:17)
[2023-03-27] MEDS: ALBUTEROL SULF 2.5 MG/0.5ML(0.5%) NEB SOLN NEB PRN ×3 (06:44→22:17)
[2023-03-27] MEDS: ACETYLCYSTEINE 20%(200MG/ML) SOL 4ML NEB SCH ×3 (06:45→22:17)
[2023-03-27] MEDS: MIDAZOLAM DRIP 50 mg/50mL 50 ML IV SCH ×4 (07:30→21:15)
[2023-03-27] MEDS: SODIUM ZIRCONIUM CYCL 10 GM PAK GT SCH ×3 (09:21→21:04)
[2023-03-27] MEDS: cefTRIAXone 1GM/50ML D5W 50 ML IV SCH (09:21)
[2023-03-27] MEDS: PANTOPRAZOLE 40 MG/10 ML VIAL INJ IV SCH (09:59)
[2023-03-27] MEDS: NOREPINEPHRINE 8 MG/250ML KIT 250 ML IV SCH (09:59)
[2023-03-27] MEDS: AZITHROMYCIN 500MG/ 250ML 250 ML IV SCH (09:59)
[2023-03-27] MEDS: ASPirin 81 mg TAB PO SCH (09:59)
[2023-03-27] MEDS ORDERED: ALBUMIN 5% 250 ML IV ONE ×2 (11:30→12:30)
[2023-03-27] MEDS ORDERED: ALBUMIN 5% 500 ML IV ONE (11:40)
[2023-03-27] MEDS ORDERED: methylPREDNISolone SOD SUCC 40 MG/ML VL IV ONE (11:45)
[2023-03-27] MEDS: DOPamine 1600MCG/ML D5W 250 ML IV SCH (15:00)
[2023-03-27] MEDS: DAPTOmycin 250 MG in SODIUM CHL 0.9% 50 ML IV SCH (20:00)
[2023-03-27] MEDS: ATORVASTATIN 20 MG TAB PO SCH (21:04)
[2023-03-28] VITALS (73 sets, daily range): BP systolic 54–139; BP diastolic 34–80
[2023-03-28] MEDS: MIDAZOLAM DRIP 50 mg/50mL 50 ML IV SCH ×4 (02:15→17:15)
[2023-03-28 04:38] LABS: Calcium 8.5 mg/dL (8.5-10.1)
[2023-03-28 04:41] LABS: BUN/Creatinine Ratio 7.9 (10.0-20.0)
[2023-03-28 05:51] LABS: Potassium 6.4 mmol/L (3.5-5.1)
[2023-03-28] MEDS: MIDODRINE HCL 10 MG TAB PO SCH ×2 (06:09→14:49)
[2023-03-28] MEDS: SODIUM CHLOR 0.9% PF (SALINE LOCK) 10ML VIAL/SYR IV SCH ×2 (06:09→14:49)
[2023-03-28] MEDS: SODIUM ZIRCONIUM CYCL 10 GM PAK GT SCH (06:09)
[2023-03-28] MEDS: IPRATROPIUM BROM 0.5 MG/2.5ML INH SOL NEB PRN (06:30)
[2023-03-28] MEDS: ACETYLCYSTEINE 20%(200MG/ML) SOL 4ML NEB SCH (06:30)
[2023-03-28] MEDS: ALBUTEROL SULF 2.5 MG/0.5ML(0.5%) NEB SOLN NEB PRN (06:30)
[2023-03-28] MEDS: NOREPINEPHRINE 8 MG/250ML KIT 250 ML IV SCH (09:20)
[2023-03-28] MEDS ORDERED: ATROPINE SULFATE 1 MG/1 ML VIAL ONE (09:25)
[2023-03-28] MEDS ORDERED: NOREPINEPHRINE 8 MG/250ML KIT 250 ML IV SCH (09:30)
[2023-03-28] MEDS ORDERED: CALCIUM GLUC 1,000mg/50ml-NS 50 ML IV ONE ×2 (09:56→10:00)
[2023-03-28] MEDS ORDERED: methylPREDNISolone SOD SUCC 40 MG/ML VL IV SCH (10:00)
[2023-03-28] MEDS: DOPamine 1600MCG/ML D5W 250 ML IV SCH (10:00)
[2023-03-28] MEDS ORDERED: HEPARIN 1,000 UNITS/ml 1ML VIAL IV ONE ×2 (11:30)
[2023-03-28] MEDS: cefTRIAXone 1GM/50ML D5W 50 ML IV SCH (14:44)
[2023-03-28] MEDS: AZITHROMYCIN 500MG/ 250ML 250 ML IV SCH (14:44)
[2023-03-28] MEDS: PANTOPRAZOLE 40 MG/10 ML VIAL INJ IV SCH (14:49)
[2023-03-28] MEDS: ASPirin 81 mg TAB PO SCH (14:49)
== END 2023-03-28 17:32 | DRG 207 ==
LOC: EDBD 18:20 → ER 18:24 → TELE 03-21 04:51 → ICU WEST 03-22 02:15
PROVIDERS: ADMIT Nurse Practitioner Family; ATTEND Internal Medicine Cardiovascular Disease
PROC: 0W993ZX Drainage of Right Pleural Cavity, Percutaneous Approach, Diagnostic (ICD-10-PCS; principal; 2023-03-21)
PROC: 5A1955Z Respiratory Ventilation, Greater than 96 Consecutive Hours (ICD-10-PCS; 2023-03-21)
PROC: 0BH17EZ Insertion of Endotracheal Airway into Trachea, Via Natural or Artificial Opening (ICD-10-PCS; 2023-03-21)
PROC: 06HY33Z Insertion of Infusion Device into Lower Vein, Percutaneous Approach (ICD-10-PCS; 2023-03-21)
PROC: 5A1D70Z Performance of Urinary Filtration, Intermittent, Less than 6 Hours Per Day (ICD-10-PCS; 2023-03-21)
PROC: 5A1D70Z Performance of Urinary Filtration, Intermittent, Less than 6 Hours Per Day (ICD-10-PCS; 2023-03-23)
PROC: 5A1D70Z Performance of Urinary Filtration, Intermittent, Less than 6 Hours Per Day (ICD-10-PCS; 2023-03-25)
PROC: 5A1D70Z Performance of Urinary Filtration, Intermittent, Less than 6 Hours Per Day (ICD-10-PCS; 2023-03-28)
DX: J96.01 Acute respiratory failure with hypoxia (principal); J18.9 Pneumonia, unspecified organism; I50.23 Acute on chronic systolic (congestive) heart failure; N18.6 End stage renal disease; I13.2 Hypertensive heart and chronic kidney disease with heart failure and with stage 5 chronic kidney disease, or end stage renal disease; J44.0 Chronic obstructive pulmonary disease with (acute) lower respiratory infection; J98.11 Atelectasis; N39.0 Urinary tract infection, site not specified; Z99.11 Dependence on respirator [ventilator] status; R64 Cachexia; Z68.1 Body mass index [BMI] 19.9 or less, adult; D63.8 Anemia in other chronic diseases classified elsewhere; E78.5 Hyperlipidemia, unspecified; E88.09 Other disorders of plasma-protein metabolism, not elsewhere classified; Z99.2 Dependence on renal dialysis; I35.0 Nonrheumatic aortic (valve) stenosis; I25.10 Atherosclerotic heart disease of native coronary artery without angina pectoris; I25.2 Old myocardial infarction; Z82.49 Family history of ischemic heart disease and other diseases of the circulatory system; I27.20 Pulmonary hypertension, unspecified
CPT/HCPCS: 32555; 36415; 36600; 51702; 70450; 71045; 80048; 80053; 80061; 81001; 82805; 82962; 83036; 83735; 83880; 83986; 84484; 85025; 85610; 85730; 87070; 87081; 87086; 87088; 87186; 87205; 87340; 89051; 90935; 93005; 93306; 94002; 94003; 94640; 96365; 96375; 99291; C9113; G0378; J0330; J0461; J0696; J1642; J2250; J7060; P9047